=== PATIENT | female | born 1945 | race Caucasian/White ===

== ENCOUNTER → 2017-04-24 | Day surgery (SDC) | payer MEDICARE ==
[2017-04-22 15:28] VITALS: BMI 28.3
[~2017-04-24] MED LIST: GLYCOPYRROLATE 0.2 MG/ML 2 ML VIAL ONE; LACTATED RINGERS 1,000 ML IV ONE; LACTATED RINGERS 1,000 ML IV SCH; LIDOCAINE 1% 20 ML VIAL (10MG/ML) FOR IV START INTRADERMA PRN; LIDOCAINE 1% INJ 10MG/ML (20 ML MDV) ONE; PROPOFOL 10 MG/ML 20 ML VIAL IV ONE
[2017-04-24 06:57] VITALS: TEMP 97.9
--- NOTE | 2017-04-24 07:07 | P.GSHP ---
History of Present Illness H&P Date: 04/24/17 CHIEF COMPLAINT: GERD and colon screen HISTORY OF PRESENT ILLNESS: The patient is a 71-year-old female who presents with gastroesophageal reflux disease and need for colon screen. Upper and lower endoscopy were offered for further evaluation and management. PAST MEDICAL HISTORY: Please see list. PAST SURGICAL HISTORY: Please see list. MEDICATIONS: Please see list. ALLERGIES: Please see list. SOCIAL HISTORY: No illicit drug use FAMILY HISTORY: No reports of Crohn disease or ulcerative colitis. REVIEW OF ORGAN SYSTEMS: CONSTITUTIONAL: No reports of fevers or chills. GI: Denies any blood in stools or constipation. PHYSICAL EXAM: VITAL SIGNS: Stable GENERAL: Well-developed pleasant in no acute distress. HEENT: No scleral icterus. Extraocular movements grossly intact. Moist buccal mucosa. NECK: Supple without lymphadenopathy. CHEST: Unlabored respirations. Equal bilateral excursions. CARDIOVASCULAR: Regular rate and rhythm. Distal 2+ pulses. ABDOMEN: Soft, nondistended. MUSCULOSKELETAL: No clubbing, cyanosis, or edema. ASSESSMENT: 1. Gastroesophageal reflux disease 2. Colon screen. PLAN: 1. Recommend proceeding with an upper and lower endoscopy Past Medical History Past Medical History: CVA/TIA, GERD/Reflux Additional Past Medical History / Comment(s): TIA 2012- no effects, History of Any Multi-Drug Resistant Organisms: None Reported Past Surgical History: Breast Surgery Additional Past Surgical History / Comment(s): left foot bunionectomy, left breast lumpectomy Past Anesthesia/Blood Transfusion Reactions: Motion Sickness, Postoperative Nausea & Vomiting (PONV) Smoking Status: Never smoker - Past Family History Mother Family Medical History: Deep Vein Thrombosis (DVT) Medications and Allergies Home Medications Medication Instructions Recorded Confirmed Type Aspirin [Adult Low Dose Aspirin EC] 162 mg PO DAILY 04/22/17 04/22/17 History Glucosam/[place]-Msm1/C/Ran/Bosw 1 each PO DAILY 04/22/17 04/22/17 History [Glucosamine-Chondroitin Tablet] Krill Oil 500 mg PO DAILY 04/22/17 04/22/17 History Lisinopril [Zestril] 10 mg PO HS 04/22/17 04/22/17 History Multivitamins, Thera [Multivitamin 1 tab PO DAILY 04/22/17 04/22/17 History (formulary)] Omeprazole [PriLOSEC] 40 mg PO DAILY 04/22/17 04/22/17 History Ranitidine HCl [Zantac] 150 mg PO BID 04/22/17 04/22/17 History Simvastatin [Zocor] 40 mg PO HS 04/22/17 04/22/17 History Allergies Allergy/AdvReac Type Severity Reaction Status Date / Time acetaminophen [From [place]] Allergy Nausea Verified 04/22/17 15:17 amoxicillin Allergy Rash/Hives Verified 04/22/17 15:17 codeine Allergy Hallucinati Verified 04/22/17 15:17 ons hydrocodone [From [place]] Allergy Nausea Verified 04/22/17 15:17 latex Allergy Itching Verified 04/22/17 15:17 Penicillins Allergy Rash/Hives Verified 04/22/17 15:17 Surgical - Exam Vital Signs Temp Pulse Resp BP Pulse Ox 97.9 F 52 L 18 132/57 98 04/24/17 06:55 04/24/17 06:55 04/24/17 06:55 04/24/17 06:55 04/24/17 06:55
[2017-04-24 07:54] VITALS: RESP 16
--- NOTE | 2017-04-24 07:58 | P.PCN ---
Date of Procedure: 04/24/17 Description of Procedure: PREOPERATIVE DIAGNOSIS: History of colon polyps. POSTOPERATIVE DIAGNOSIS: History of colon polyps. Severe diverticulitis. Large bowel obstruction from colonic stricture of the sigmoid. OPERATION: Colonoscopy to the hepatic flexure. SURGEON: Emma Godwin MD. ANESTHESIA: MAC. INDICATIONS: The patient is a 71-year-old female who presents with change in bowel habits and history of colon polyps. Benefits and risks were described and informed consent was obtained. DESCRIPTION OF PROCEDURE: The patient had undergone Gatorade, MiraLAX and Dulcolax prep. She had been brought into the operating room and laid in the left lateral decubitus position. After adequate intravenous sedation, the rectum was examined with 2% lidocaine jelly. External hemorrhoids were encountered. The rectal tone was within normal limits. No lesions were palpated in the rectal vault. A tight sigmoid stricture was identified between 20-30 cm from the anal verge. As a result, a pediatric colonoscope was exchanged from an adult colonoscope for completion of her case. The sigmoid colon was moderately tortuous with multiple diverticuli identified. Despite maneuvers including abdominal pressure to advance the scope beyond the hepatic flexure, moderate redundancy of the colon. As a result of these findings, her colonoscopy was terminated at the hepatic flexure. No polyps were identified. Severe diverticulosis were found of the sigmoid colon. The prep was excellent with clear visualization of the mucosal folds. The scope was removed with visualization of each mucosal fold. The colon was desufflated. The patient had tolerated the procedure well. Withdrawal time was over 6 minutes. FINDINGS: Large bowel obstruction along sigmoid colon between 20-30 cm from the anal verge. [place] diverticulum of the sigmoid colon. Severe redundancy of the sigmoid colon limiting completion of the case. RECOMMENDATIONS: Stat barium enema. Recommend partial colon resection for severity of colonic stricture. Completion colonoscopy in one year, 2018.
[2017-04-24 08:35] VITALS: BP 126/57; PULSE 68
--- NOTE | 2017-04-24 10:50 | P.PCN ---
Date of Procedure: 04/24/17 Description of Procedure: PREOPERATIVE DIAGNOSIS: Gastroesophageal reflux disease. POSTOPERATIVE DIAGNOSIS: Gastritis. Gastroesophageal reflux disease. Diaphragmatic hiatal hernia without obstruction. OPERATION: Esophagogastroduodenoscopy with biopsies along antrum. SURGEON: Emma Godwin MD ANESTHESIA: MAC. INDICATIONS: The patient is a 71-year-old female who presents with a history of reflux disease. Benefits and risks of the procedure were described. Informed consent was obtained. DESCRIPTION: The patient was brought into the endoscopy suite and laid in the left lateral decubitus position. An Olympus gastroscope was passed along the posterior oropharynx down to the distal esophagus where the squamocolumnar junction was encountered at 37 cm from the incisors. The stomach was entered and no bile reflux was found. Additional findings are listed below. Biopsies with cold forceps were obtained of the antrum. The first through third portion of the duodenum was examined and unremarkable. Retroflexion of the scope confirmed Hill grade 4 lower esophageal valve. The squamocolumnar junction demostrated LA grade A erosive esophagitis. The stomach was desufflated. The patient tolerated the procedure well. FINDINGS: Squamocolumnar junction 37 cm from the incisors. Diaphragmatic hiatus at 38 cm. Hiatal hernia 1 cm. Hill grade 4 lower esophageal valve. LA grade A erosive esophagitis. No active duodenitis. Minimal superficial gastritis. RECOMMENDATIONS: Continue medical therapy. Further recommendations pending results of pathology report. Upper endoscopy as needed. Will benefit from antireflux surgical procedure Plan - Discharge Summary Discharge Rx Participant: No New Discharge Prescriptions: No Action Simvastatin [Zocor] 40 mg PO HS Lisinopril [Zestril] 10 mg PO HS Ranitidine HCl [Zantac] 150 mg PO BID Glucosam/[place]-Msm1/C/Ran/Bosw [Glucosamine-Chondroitin Tablet] 1 each PO DAILY RX: Krill Oil 500 mg PO DAILY Multivitamins, Thera [Multivitamin (formulary)] 1 tab PO DAILY Aspirin [Adult Low Dose Aspirin EC] 162 mg PO DAILY Omeprazole [PriLOSEC] 40 mg PO DAILY Discharge Medication List Aspirin [Adult Low Dose Aspirin EC] 162 mg PO DAILY 04/22/17 [History] Glucosam/[place]-Msm1/C/Ran/Bosw [Glucosamine-Chondroitin Tablet] 1 each PO DAILY 04/22/17 [History] Lisinopril [Zestril] 10 mg PO HS 04/22/17 [History] Multivitamins, Thera [Multivitamin (formulary)] 1 tab PO DAILY 04/22/17 [History ] Omeprazole [PriLOSEC] 40 mg PO DAILY 04/22/17 [History] RX: Krill Oil 500 mg PO DAILY 04/22/17 [History] Ranitidine HCl [Zantac] 150 mg PO BID 04/22/17 [History] Simvastatin [Zocor] 40 mg PO HS 04/22/17 [History] Follow up Appointment(s)/Referral(s): Emma Godwin MD [STAFF PHYSICIAN] - As Needed Patient Instructions/Handouts: *[facility] - (Anesthesia) Endoscopy Discharge Instructions, Colonoscopy (DC), Diverticulosis (DC), Upper Endoscopy (DC) Discharge Disposition: HOME SELF-CARE
--- NOTE | 2017-04-24 10:55 | P.PN ---
Progress Note - Text Progress Note Date: 04/24/17 [employer] And Claims Aide abdominal x-ray reviewed by me demonstrates moderate redundancy of the transverse colon including sigmoid colon with potential stricture. Patient may be discharged home with follow-up in the office for elective colon resection.
--- NOTE | 2017-04-24 16:26 | XR ---
EXAMINATION TYPE: XR abdomen 1V DATE OF EXAM: 04/24/2017 COMPARISON: NONE HISTORY: Pain TECHNIQUE: Single supine KUB image of the abdomen is obtained FINDINGS: Small bowel demonstrates no evidence for dilatation or air fluid levels. There is distention of colon following colonoscopy. No evidence for pneumoperitoneum although the min g bases are cut off the [id number]. No convincing evidence for pneumoperitoneum. No unusual calcifications. The lung bases are clear. The osseous structures are intact. IMPRESSION: 1. Colonic distention in a patient who is status post colonoscopy.
== END | disposition home or self-care (01) ==
LOC: ORWHC2ENDO 06:42
PROVIDERS: ATTEND Surgery Plastic and Reconstructive Surgery
DX: K21.9 Gastro-esophageal reflux disease without esophagitis (principal); K29.50 Unspecified chronic gastritis without bleeding; K44.9 Diaphragmatic hernia without obstruction or gangrene; K56.699 Other intestinal obstruction unspecified as to partial versus complete obstruction; K57.92 Diverticulitis of intestine, part unspecified, without perforation or abscess without bleeding; K64.4 Residual hemorrhoidal skin tags; Z79.82 Long term (current) use of aspirin; Z86.010 Personal history of colon polyps; Z86.73 Personal history of transient ischemic attack (TIA), and cerebral infarction without residual deficits; Z88.0 Allergy status to penicillin; Z88.5 Allergy status to narcotic agent; Z91.040 Latex allergy status; Z88.4 Allergy status to anesthetic agent
CPT/HCPCS: 88305; 88342; 74000; 45378; 43239; J2001; J2704

== ENCOUNTER → 2017-10-26 | Outpatient (CLI) | payer MEDICARE ==
[2017-10-26 11:37] LABS: HCT 45.7 % (34.0-46.0); MCH 30.7 pg (25.0-35.0); MCHC 32.8 g/dL (31.0-37.0); MCV 93.6 fL (80.0-100.0); Mean Platelet Volume 7.5; Platelet Count 224 k/uL (150-450); RBC 4.88 m/uL (3.80-5.40); RDW 12.4 % (11.5-15.5); WBC 5.5 k/uL (3.8-10.6)
[2017-10-26 11:47] LABS: Potassium 4.5 mmol/L (3.5-5.1)
== END | disposition home or self-care (01) ==
LOC: LABPAT 10:47
PROVIDERS: ATTEND Surgery Plastic and Reconstructive Surgery
DX: Z01.812 Encounter for preprocedural laboratory examination (principal)
CPT/HCPCS: 36415; 80051; 85027

== ENCOUNTER 2017-10-29 10:29 | Inpatient (IN) | payer MEDICARE ==
[2017-10-21 15:40] VITALS: BMI 29.0
--- NOTE | 2017-10-29 08:35 | P.GSHP ---
History of Present Illness H&P Date: 10/29/17 CHIEF COMPLAINT: History of severe sigmoid diverticulosis. HISTORY OF PRESENT ILLNESS: Kristie Yoon is a 72-year-old female who had an attempted colonoscopy in April. She reports having blood in her stools, including lower pelvic pain particularly along the right. Her colonoscopy revealed a sigmoid stricture between 20-30 cm from the anal verge. She reports that her bowel movements have become worse in terms of constipation. Her was at bedside. She has completed a cardiac stress test with Dr. Strickland, in June, which came back completely normal. Now she presents for sigmoid colon resection. PAST MEDICAL HISTORY: Please see list. PAST SURGICAL HISTORY: Please see list. MEDICATIONS: Please see list. ALLERGIES: Please see list. SOCIAL HISTORY: No illicit drug use FAMILY HISTORY: No reports of Crohn disease or ulcerative colitis. REVIEW OF ORGAN SYSTEMS: Additionally reports: Cardiovascular: Completed a cardiac stress test on June 30, 2017, which was normal for any ischemic events. Musculoskeletal: History of severe osteoarthritis of the right knee. Hematologic: Reports mother of blood clots and also reports poor and collapsed veins of the right leg. CONSTITUTIONAL: No fevers or chills. HEENT: Denies any trouble with vision, hearing or nosebleeds. No difficulty swallowing. LYMPHATIC: The patient denies any lumps and bumps around the neck. ENDOCRINE: Denies any thyroid disorders. Denies any blood sugar glucose intolerance. RESPIRATORY: Denies pneumonia. Denies any troubles with breathing or dyspnea on exertion. GASTROINTESTINAL: Denies fatty food intolerance. Denies change in bowel habits and gas bloat. GENITOURINARY: Denies any blood in urine or increased urinary frequency. NEUROLOGIC: Denies any numbness or tingling along the distal extremities. No seizure disorders or headaches. PSYCHIATRIC: Denies any depression or suicidal ideation. BREASTS: Denies any breast lumps, pain or nipple discharge. SKIN: No current skin cancer. No rash. PHYSICAL EXAM: VITAL SIGNS: Stable Patient is a 72-year-old female. GENERAL: Well developed and in no acute distress. Pleasant. HEENT: No sclera icterus. Extraocular movements grossly intact. Moist buccal mucosa. Head is atraumatic, normocephalic. Hears conversational speech. No nasal drainage. NECK: Supple without lymphadenopathy. No JV distention. CHEST: Non-labored respirations and equal bilateral excursions. CARDIOVASCULAR: Regular rate and rhythm. Palpable 2+ radial pulses. ABDOMEN: Soft. Non-tender. Nondistended. MUSCULOSKELETAL: No clubbing, cyanosis or edema. NEUROLOGIC: No focal or lateralizing signs. PSYCH: Appropriate affect. Alert and oriented to person, place and time. SKIN: Well perfused. Good skin turgor. STUDIES: X-ray of the abdomen had demonstrated severe gastric distention. Stress test was reviewed, along side with the patient, and demonstrated no myocardial ischemia. ASSESSMENT: 1. Severe sigmoid diverticulosis. 2. Large bowel obstruction. 3. Family history of DVT. 4. History of venous disease. PLAN: 1. I have gone over surgical options, including robotic versus open sigmoid colectomy. As she has minimal scars on her abdomen, robotic colectomy was described. 2. Time frame for operation is anywhere between 3-6 hours was reviewed. 3. Inpatient hospitalization for 2 nights was described. 4. With her personal and family history of DVTs, referral to cardroom drawing runner was also reviewed as well. Additionally, inpatient consultation for post op DVT prophylaxis will be investigated. 5. Weight lifting restriction of 4 pounds for 4 weeks post procedure was reviewed. 6. Enhanced colon recovery program was also reviewed. 7. Bowel prep information was also described. Poor bowel prep management was also described to the patient where she will start her bowel prep early on Thursday morning and notify the office by mid-afternoon should she have any problems with her prep, which will warrant immediate hospitalization the night before the operation, which she demonstrated understanding. 8. All questions and answers were reviewed with the patient and family. 9. Benefits and risks of surgical intervention reviewed in detail. Robotic- assisted approach was also described. 10. She has completed an enhanced colon recovery program. 11. DVT prophylaxis. 12. Antibiotic prophylaxis. Past Medical History Past Medical History: CVA/TIA, GERD/Reflux, Hyperlipidemia, Hypertension Additional Past Medical History / Comment(s): TIA 2012- no effects, diverticulitis, hx polyps History of Any Multi-Drug Resistant Organisms: None Reported Past Surgical History: Breast Surgery, Orthopedic Surgery Additional Past Surgical History / Comment(s): left foot bunionectomy, left breast lumpectomy Past Anesthesia/Blood Transfusion Reactions: Motion Sickness, Postoperative Nausea & Vomiting (PONV) Smoking Status: Never smoker - Past Family History Mother Family Medical History: Deep Vein Thrombosis (DVT) Medications and Allergies Home Medications Medication Instructions Recorded Confirmed Type Aspirin [Adult Low Dose Aspirin EC] 162 mg PO DAILY 04/22/17 10/21/17 History Glucosam/[place]-Msm1/C/Ran/Bosw 1 each PO DAILY 04/22/17 10/21/17 History [Glucosamine-Chondroitin Tablet] Krill Oil 500 mg PO DAILY 04/22/17 10/21/17 History Lisinopril [Zestril] 10 mg PO HS 04/22/17 10/21/17 History Multivitamins, Thera [Multivitamin 1 tab PO DAILY 04/22/17 10/21/17 History (formulary)] Omeprazole [PriLOSEC] 40 mg PO DAILY 04/22/17 10/21/17 History Ranitidine HCl [Zantac] 150 mg PO BID 04/22/17 10/21/17 History Simvastatin [Zocor] 40 mg PO HS 04/22/17 10/21/17 History Allergies Allergy/AdvReac Type Severity Reaction Status Date / Time amoxicillin Allergy Rash/Hives Verified 10/21/17 15:34 codeine Allergy Hallucinati Verified 10/21/17 15:34 ons hydrocodone [From [place]] Allergy Nausea Verified 10/21/17 15:34 latex Allergy Itching Verified 10/21/17 15:34 Penicillins Allergy Rash/Hives Verified 10/21/17 15:34
[~2017-10-29 10:29] MED LIST changes: +ACETAMINOPHEN TAB 500 MG TAB PO ONE; +ALVIMOPAN 12 MG CAPSULE PO ONE; +Antibiotics per Pharmacy 1 EACH MISC MISCELLANE PRN; +DEXAMETHASONE SOD PHOSPHATE 10 MG/ML 1 ML VIAL IV ONE; -GLYCOPYRROLATE 0.2 MG/ML 2 ML VIAL ONE; +HEPARIN SODIUM,PORCINE 5,000 UNIT/ML 1 ML VIAL SQ ONE; +HYDROmorphone 0.5 MG/0.5 ML SYRINGE IVP PRN; -LACTATED RINGERS 1,000 ML IV ONE; -LACTATED RINGERS 1,000 ML IV SCH; -LIDOCAINE 1% 20 ML VIAL (10MG/ML) FOR IV START INTRADERMA PRN; -LIDOCAINE 1% INJ 10MG/ML (20 ML MDV) ONE; +ONDANSETRON 4 MG/2 ML VIAL IVP ONE; -PROPOFOL 10 MG/ML 20 ML VIAL IV ONE; +ceFAZolin IN SWFI 2 GM/20 ML SYRINGE IVP ONE; +metroNIDAZOLE-NS PMX 500 MG in SALINE 1 100ML.BAG IVPB STA
--- NOTE | 2017-10-29 11:02 | XR ---
EXAMINATION TYPE: XR chest 2V DATE OF EXAM: 10/29/2017 COMPARISON: NONE HISTORY: Preoperative evaluation. TECHNIQUE: Frontal and lateral views of the chest are obtained. FINDINGS: There is no focal air space opacity, pleural effusion, or pneumothorax seen. The cardiac silhouette size is within normal limits. The osseous structures are intact. Mild multilevel degener ative changes of the thoracic spine are seen. IMPRESSION: No acute cardiopulmonary process.
[2017-10-29] MEDS: LACTATED RINGERS 1,000 ML IV SCH (11:42)
[2017-10-29] MEDS ORDERED: LIDOCAINE 1% 20 ML VIAL (10MG/ML) FOR IV START INTRADERMA ONE (11:42)
[2017-10-29] MEDS ORDERED: MIDAZOLAM 2 MG/2 ML VIAL IV ONE ×2 (12:39→12:49)
[2017-10-29] MEDS ORDERED: fentaNYL (PF) 50 MCG/ML 2 ML AMP IV ONE (12:50)
[2017-10-29] MEDS ORDERED: NALOXONE 0.4 MG/ML 1 ML VIAL IV PRN (13:21)
[2017-10-29] MEDS ORDERED: LIDOCAINE 1% INJ 10MG/ML (20 ML MDV) ONE (13:52)
[2017-10-29] MEDS ORDERED: ROCURONIUM BROMIDE 10 MG/ML 10 ML VIAL IV ONE (13:52)
[2017-10-29] MEDS ORDERED: MIDAZOLAM 2 MG/2 ML VIAL ONE (13:52)
[2017-10-29] MEDS ORDERED: GLYCOPYRROLATE 0.2 MG/ML 2 ML VIAL ONE (13:52)
[2017-10-29] MEDS ORDERED: NEOSTIGMINE 1 MG/ML 10 ML VIAL ONE (13:52)
[2017-10-29] MEDS ORDERED: PROPOFOL 10 MG/ML 20 ML VIAL IV ONE (13:52)
[2017-10-29] MEDS ORDERED: PHENYLEPHRINE-0.9% NACL SYG 1 MG/10 ML SYRINGE ONE (13:52)
[2017-10-29] MEDS ORDERED: fentaNYL (PF) 50 MCG/ML 2 ML AMP ONE (13:52)
[2017-10-29] MEDS ORDERED: ePHEDrine SULFATE/0.9% NACL/PF 50 MG/5 ML SYRINGE IV ONE (13:52)
[2017-10-29] MEDS ORDERED: SUCCINYLCHOLINE CHLORIDE 100 MG/5 ML SYR IV ONE (13:52)
[2017-10-29] MEDS ORDERED: BUPIVACAINE (PF) 0.5% 30 ML VIAL SQ ONE (14:23)
[2017-10-29] MEDS ORDERED: LACTATED RINGERS 1,000 ML IV ONE ×2 (16:00)
--- NOTE | 2017-10-29 18:15 | P.PCN ---
Date of Procedure: 10/29/17 Preoperative Diagnosis: Sigmoid diverticulitis with obstruction Postoperative Diagnosis: Same, sigmoid volvulus Procedure(s) Performed: Robotic -assisted low anterior resection Anesthesia: GETA, local, epidural Surgeon: Emma Godwin Estimated Blood Loss (ml): 20 Pathology: other (Sigmoid diverticulitis) Condition: stable Disposition: floor Operative Findings: 1. Sigmoid volvulus involving area of sigmoid diverticulitis 2. Anastomosis with EEA stapler 29 mm 3. No tension or torsion on the anastomosis 4. Colotomy superior to anastomosis made with transverse closure using green staple load 5. Colotomy oversewn using 3-0 silk 6. Doughnuts thick and both sides and viable
[2017-10-29] MEDS ORDERED: BENZOCAINE/MENTHOL LOZENG 1 EACH LOZENGE MUCOUS MEM PRN (18:16)
[2017-10-29] MEDS: ROPIVACAINE 250 MG, fentaNYL (PF) 1,250 MCG in SODIUM CHLORIDE 0.9% 175 ML EPIDURAL PRN ×3 (18:23→18:45)
[2017-10-29] MEDS ORDERED: SCOPOLAMINE 1.5MG/72HR PATCH TRANSDERM SCH (18:30)
--- NOTE | 2017-10-29 20:22 | P.PN ---
Progress Note - Text Progress Note Date: 10/29/17 She is sleeping well. Potential discharge in 24-48 hours pending surgical stability.
[2017-10-29] MEDS: D5-0.45% NACL WITH KCL 20MEQ/L 1,000 ML IV SCH (22:02)
[2017-10-29] MEDS: FAMOTIDINE 20 MG/2 ML VIAL IV SCH (22:08)
[2017-10-29] MEDS: HEPARIN SODIUM,PORCINE 5,000 UNIT/ML 1 ML VIAL SQ SCH (22:08)
[2017-10-29] MEDS: LISINOPRIL 10 MG TAB PO SCH (22:11)
[2017-10-30] MEDS: METOCLOPRAMIDE 5 MG/ML 2 ML VIAL IVP SCH ×4 (00:53→17:14)
[2017-10-30 07:41] LABS: Basophils % (A) 0 %; Eosinophils % (A) 0 %; HGB 12.9 gm/dL (11.4-16.0); Lymphocytes # (A) 1.4 k/uL (1.0-4.8); Lymphocytes % (A) 11 %; MCH 31.8 pg (25.0-35.0); MCHC 33.1 g/dL (31.0-37.0); MCV 95.8 fL (80.0-100.0); Mean Platelet Volume 7.6; Monocytes # (A) 0.9 k/uL (0-1.0); Monocytes % (A) 7 %; Neutrophils # (A) 9.9 k/uL (1.3-7.7); Neutrophils % (A) 81 %; Platelet Count 213 k/uL (150-450); RBC 4.07 m/uL (3.80-5.40); RDW 12.5 % (11.5-15.5); WBC 12.3 k/uL (3.8-10.6)
[2017-10-30 08:04] LABS: Anion Gap 8 mmol/L; Blood Urea Nitrogen 13 mg/dL (7-17); Calcium 8.4 mg/dL (8.4-10.2); Carbon Dioxide 25 mmol/L (22-30); Chloride 104 mmol/L (98-107); Glucose 116 mg/dL (74-99); Potassium 4.2 mmol/L (3.5-5.1); Sodium 137 mmol/L (137-145)
[2017-10-30] MEDS: ALVIMOPAN 12 MG CAPSULE PO SCH ×2 (08:56→21:49)
[2017-10-30] MEDS: HEPARIN SODIUM,PORCINE 5,000 UNIT/ML 1 ML VIAL SQ SCH ×2 (08:57→21:49)
[2017-10-30] MEDS: FAMOTIDINE 20 MG/2 ML VIAL IV SCH ×2 (08:57→21:48)
[2017-10-30 09:02] LABS: Magnesium 2.1 mg/dL (1.6-2.3); Phosphorus 3.5 mg/dL (2.5-4.5)
[2017-10-30] MEDS: LACTATED RINGERS 1,000 ML IV SCH ×2 (09:52→11:29)
[2017-10-30] MEDS: D5-0.45% NACL WITH KCL 20MEQ/L 1,000 ML IV SCH ×3 (09:53→20:48)
[2017-10-30] MEDS ORDERED: ACETAMINOPHEN IV (For NPO) 1,000 MG in EMPTY BAG 1 BAG IVPB ONE (10:01)
[2017-10-30] MEDS: ONDANSETRON 4 MG/2 ML VIAL IVP PRN ×2 (10:38→18:18)
--- NOTE | 2017-10-30 10:53 | P.PN ---
<Latanya Pastor - Last Filed: 10/30/17 10:46> Subjective Progress Note Date: 10/30/17 72-year-old female seen at the bedside. Patient states feeling dizzy lightheaded nausea sensation feel like it's from the pain medication from the epidural" did note low urine output with systolic blood pressure in the 90s heart rate in the 70s 1 L fluid bolus being given. White count 12.3 electrolytes within normal limits magnesium 2.1 surgical dressing site dry states not passing gas indwelling Kevin catheter dark manolo urine surgical tenderness appropriate October 29 robotic-assisted low anterior resection for sigmoid diverticulitis with obstruction sigmoid volvulus Objective - Vital Signs Vital signs: Vital Signs Temp 98.6 F 10/30/17 07:54 Pulse 72 10/30/17 07:54 Resp 16 10/30/17 07:54 BP 94/57 10/30/17 07:54 Pulse Ox 96 10/30/17 07:54 Intake & Output 10/29/17 10/30/17 10/30/17 18:59 06:59 18:59 Intake Total 2627.1 Output Total 420 535 Balance 2207.1 -535 Intake: IV 2627.1 Output: Drainage 60 Left Abdomen 60 Urine 400 475 Estimated Blood Loss 20 Other: Voiding Method Indwelling Catheter # Voids 1 - Exam Physical exam 72-year-old female awake and alert resting in bed appearing in no acute distress Lungs adequate air movement bilaterally no shortness of breath noted sats on room air 96% Heart S1-S2 audible irregular heart rate in the 70s denying chest pain Abdomen SOFIA drain in place serous drainage noted few hypoactive bowel sounds indwelling Kevin catheter in place nausea sensation no active emesis surgical tenderness appropriate nondistended Extremities Venodyne's on to the bilateral lower extremities no edema - Labs CBC & Chem 7: 10/30/17 06:46 10/30/17 06:46 Labs: Abnormal Lab Results - Last 24 Hours (Table) 10/30/17 10/30/17 Range/Units 06:46 06:46 WBC 12.3 H (3.8-10.6) k/uL Neutrophils # 9.9 H (1.3-7.7) k/uL Glucose 116 H (74-99) mg/dL Assessment and Plan Assessment: Impression Sigmoid diverticulitis with obstruction with sigmoid volvulus Robotic-assisted low anterior resection for sigmoid diverticulitis with obstruction Esophageal reflux disease Hyperlipidemia Leukocytosis likely reactive Plan IV fluid bolus now monitor response IV fluid at 125 an hour Surgical postop course continue Pain control epidural per anesthesia DVT and GI prophylaxis Increase activity as tolerated further surgical recommendations pending The above impression and plan of care have been discussed and directed by signing physician. Latanya Pastor nurse practitioner acting as scribe for signing physician. <Emma Godwin N - Last Filed: 10/30/17 18:42> Objective - Vital Signs Vital signs: Vital Signs Temp 98.4 F 10/30/17 15:12 Pulse 76 10/30/17 15:12 Resp 16 10/30/17 15:12 BP 101/59 10/30/17 15:12 Pulse Ox 95 10/30/17 15:16 Intake & Output 10/29/17 10/30/17 10/30/17 18:59 06:59 18:59 Intake Total 2627.1 Output Total 420 535 310 Balance 2207.1 -535 -310 Intake: IV 2627.1 Output: Drainage 60 35 Left Abdomen 60 35 Urine 400 475 275 Estimated Blood Loss 20 Other: Voiding Method Indwelling Catheter Indwelling Catheter # Voids 1 - Labs CBC & Chem 7: 10/30/17 06:46 10/30/17 06:46 Labs: Abnormal Lab Results - Last 24 Hours (Table) 10/30/17 10/30/17 Range/Units 06:46 06:46 WBC 12.3 H (3.8-10.6) k/uL Neutrophils # 9.9 H (1.3-7.7) k/uL Glucose 116 H (74-99) mg/dL
--- NOTE | 2017-10-30 13:00 | P.PN ---
Progress Note - Text Date: 10/30/2017 Time: 07:21 The patient is status post, robotic-assisted laparoscopic sigmoid colectomy, postoperative day number 1 The patient has no complaints of vomiting or headache. The patient does report some mild nausea this morning. The patient does not complain of any lower extremity numbness or weakness. The epidural is running at[3] mL per hour. The nausea will be monitored and the epidural will be maintained and adjusted as needed.
[2017-10-30] MEDS: metroNIDAZOLE-NS PMX 500 MG in SALINE 1 100ML.BAG IVPB SCH (21:48)
[2017-10-30] MEDS: LISINOPRIL 10 MG TAB PO SCH (21:48)
[2017-10-30] MEDS: ceFAZolin IN SWFI 2 GM/20 ML SYRINGE IVP SCH (21:48)
[2017-10-30] MEDS ORDERED: DEXAMETHASONE SOD PHOSPHATE 10 MG/ML 1 ML VIAL IV STA (21:57)
[2017-10-30] MEDS: ROPIVACAINE 250 MG, fentaNYL (PF) 1,250 MCG in SODIUM CHLORIDE 0.9% 175 ML EPIDURAL PRN (22:45)
[2017-10-31] MEDS: METOCLOPRAMIDE 5 MG/ML 2 ML VIAL IVP SCH ×3 (01:21→10:49)
[2017-10-31] MEDS: metroNIDAZOLE-NS PMX 500 MG in SALINE 1 100ML.BAG IVPB SCH ×2 (01:21→09:50)
[2017-10-31] MEDS: D5-0.45% NACL WITH KCL 20MEQ/L 1,000 ML IV SCH (02:44)
[2017-10-31] MEDS: ceFAZolin IN SWFI 2 GM/20 ML SYRINGE IVP SCH (04:35)
[2017-10-31 07:38] LABS: Basophils % (A) 0 %; Eosinophils % (A) 0 %; HCT 37.8 % (34.0-46.0); HGB 12.1 gm/dL (11.4-16.0); Lymphocytes # (A) 0.7 k/uL (1.0-4.8); Lymphocytes % (A) 7 %; MCHC 32.1 g/dL (31.0-37.0); MCV 96.7 fL (80.0-100.0); Mean Platelet Volume 7.8; Monocytes # (A) 0.3 k/uL (0-1.0); Monocytes % (A) 3 %; Neutrophils # (A) 8.9 k/uL (1.3-7.7); Neutrophils % (A) 90 %; Platelet Count 184 k/uL (150-450); RBC 3.91 m/uL (3.80-5.40); RDW 12.9 % (11.5-15.5); WBC 9.9 k/uL (3.8-10.6)
[2017-10-31 07:41] VITALS: RESP 16
[2017-10-31 07:58] LABS: Anion Gap 8 mmol/L; Blood Urea Nitrogen 8 mg/dL (7-17); Calcium 8.6 mg/dL (8.4-10.2); Carbon Dioxide 24 mmol/L (22-30); Chloride 108 mmol/L (98-107); Glucose 144 mg/dL (74-99); Magnesium 2.1 mg/dL (1.6-2.3); Potassium 4.7 mmol/L (3.5-5.1); Sodium 140 mmol/L (137-145)
[2017-10-31] MEDS: ONDANSETRON 4 MG/2 ML VIAL IVP PRN (08:22)
[2017-10-31] MEDS: ALVIMOPAN 12 MG CAPSULE PO SCH (09:50)
[2017-10-31] MEDS: FAMOTIDINE 20 MG/2 ML VIAL IV SCH (09:51)
[2017-10-31] MEDS: HEPARIN SODIUM,PORCINE 5,000 UNIT/ML 1 ML VIAL SQ SCH (09:51)
--- NOTE | 2017-10-31 11:52 | P.DS ---
Providers Date of admission: 10/29/17 10:29 Expected date of discharge: 10/31/17 Attending physician: Emma Godwin Primary care physician: Omid Vasquez - Discharge Diagnosis(es) (1) Sigmoid diverticulitis Current Visit: Yes Status: Acute (2) Sigmoid volvulus Current Visit: Yes Status: Acute (3) Hypertensive heart disease Current Visit: Yes Status: Acute (4) Hyperlipidemia Current Visit: Yes Status: Acute (5) Osteoarthritis Current Visit: Yes Status: Acute (6) Gastroesophageal reflux Current Visit: Yes Status: Acute (7) Hiatal hernia Current Visit: Yes Status: Acute Hospital Course: Patient underwent elective colon resection with a low anterior resection with robotic technique. She had history of symptomatically diverticulitis, change in bowel habits and intraoperative finding of sigmoid volvulus. Postprocedure her pain was controlled with epidural. Prior to discharge her epidural was discontinued. Kevin catheter was removed. She had been tolerating diet. SOFIA drain was maintained upon discharge. Patient will follow-up in the office in 7 days. Discharge instructions including diet and medical reconciliation was performed. Opiates start talking form was also obtained. Procedures: Robotic low anterior resection Patient Condition at Discharge: Stable Plan - Discharge Summary Discharge Rx Participant: Yes New Discharge Prescriptions: New HYDROcodone/APAP 5-325MG [[place] 5-325] 1 tab PO Q4HR PRN 3 Days #18 tab PRN Reason: Pain Ondansetron Odt [Zofran ODT] 4 mg PO Q8HR PRN #20 tab PRN Reason: Nausea Continue Simvastatin [Zocor] 40 mg PO HS Lisinopril [Zestril] 10 mg PO HS Ranitidine HCl [Zantac] 150 mg PO BID Aspirin [Adult Low Dose Aspirin EC] 162 mg PO DAILY Omeprazole [PriLOSEC] 40 mg PO DAILY Discontinued Glucosam/[place]-Msm1/C/Ran/Bosw [Glucosamine-Chondroitin Tablet] 1 tab PO DAILY Krill Oil 500 mg PO DAILY Multivitamins, Thera [Multivitamin (formulary)] 1 tab PO DAILY Discharge Medication List Aspirin [Adult Low Dose Aspirin EC] 162 mg PO DAILY 04/22/17 [History] Lisinopril [Zestril] 10 mg PO HS 04/22/17 [History] Omeprazole [PriLOSEC] 40 mg PO DAILY 04/22/17 [History] Ranitidine HCl [Zantac] 150 mg PO BID 04/22/17 [History] Simvastatin [Zocor] 40 mg PO HS 04/22/17 [History] HYDROcodone/APAP 5-325MG [[place] 5-325] 1 tab PO Q4HR PRN 3 Days #18 tab [Rx] Ondansetron Odt [Zofran ODT] 4 mg PO Q8HR PRN #20 tab 10/31/17 [Rx] Follow up Appointment(s)/Referral(s): Emma Godwin MD [STAFF PHYSICIAN] - 11/03/17 1:00 pm (MARLETTE) Patient Instructions/Handouts: Laparoscopic Bowel Resection (DC), Colectomy Diet (DC), [place]-Se[place] Drain Care (DC) Activity/Diet/Wound Care/Special Instructions: No bath tub soaks. No showering with drain. May sponge bath. Dressings to be removed by your surgeon. High protein liquid diet now until seen in the office. Discharge Disposition: HOME SELF-CARE
--- NOTE | 2017-10-31 11:55 | P.PN ---
Subjective Progress Note Date: 10/31/17 Patient is status post robotic-assisted low anterior resection for sigmoid diverticulitis and sigmoid volvulus. Her pain has been controlled. Yesterday she had nausea and vomiting which is now completely resolved. She is tolerating diet. She is ambulating without dizziness. SOFIA drain still sanguinous. She denies any chest pain. She denies any abdominal distention. Objective - Vital Signs Vital signs: Vital Signs Temp 98.4 F 10/31/17 07:39 Pulse 62 10/31/17 07:39 Resp 16 10/31/17 07:39 BP 120/68 10/31/17 07:39 Pulse Ox 92 L 10/31/17 07:39 Intake & Output 10/30/17 10/31/17 10/31/17 18:59 06:59 18:59 Output Total 310 1880 Balance -310 -1880 Output: Drainage 35 30 Left Abdomen 35 30 Urine 275 1850 Other: Voiding Method Indwelling Catheter Indwelling Catheter Indwelling Catheter # Voids 1 - Exam GENERAL: Well developed and in no acute distress. Pleasant. HEENT: No sclera icterus. Extraocular movements grossly intact. Moist buccal mucosa. Head is atraumatic, normocephalic. Hears conversational speech. No nasal drainage. NECK: Supple without lymphadenopathy. No JV distention. CHEST: Non-labored respirations and equal bilateral excursions. CARDIOVASCULAR: Regular rate and rhythm. Palpable 2+ radial pulses. ABDOMEN: Soft, nondistended. No peritonitis. SOFIA sanguinous. Dressings clean dry and intact. MUSCULOSKELETAL: No clubbing, cyanosis or edema. NEUROLOGIC: No focal or lateralizing signs. PSYCH: Appropriate affect. Alert and oriented to person, place and time. SKIN: Good skin turgor. Well perfused. - Labs CBC & Chem 7: 10/31/17 06:46 10/31/17 06:46 Labs: Abnormal Lab Results - Last 24 Hours (Table) 10/31/17 10/31/17 Range/Units 06:46 06:46 Neutrophils # 8.9 H (1.3-7.7) k/uL Lymphocytes # 0.7 L (1.0-4.8) k/uL Chloride 108 H (98-107) mmol/L Glucose 144 H (74-99) mg/dL Assessment and Plan (1) Sigmoid diverticulitis Current Visit: Yes Status: Acute Code(s): K57.32 - DVTRCLI OF LG INT W/O PERFORATION OR ABSCESS W/O BLEEDING SNOMED Code(s): 051704942 (2) Sigmoid volvulus Current Visit: Yes Status: Acute Code(s): K56.2 - VOLVULUS SNOMED Code(s) : 048559431 (3) Hypertensive heart disease Current Visit: Yes Status: Acute Code(s): I11.9 - HYPERTENSIVE HEART DISEASE WITHOUT HEART FAILURE SNOMED Code(s): 24488849 (4) Hyperlipidemia Current Visit: Yes Status: Acute Code(s): E78.5 - HYPERLIPIDEMIA, UNSPECIFIED SNOMED Code(s): 22913858 (5) Osteoarthritis Current Visit: Yes Status: Acute Code(s): M19.90 - UNSPECIFIED OSTEOARTHRITIS, UNSPECIFIED SITE SNOMED Code(s): 505362093 (6) Gastroesophageal reflux Current Visit: Yes Status: Acute Code(s): K21.9 - GASTRO-ESOPHAGEAL REFLUX DISEASE WITHOUT ESOPHAGITIS SNOMED Code(s): 104620373 (7) Hiatal hernia Current Visit: Yes Status: Acute Code(s): K44.9 - DIAPHRAGMATIC HERNIA WITHOUT OBSTRUCTION OR GANGRENE SNOMED Code(s): 81024808 Plan: 1. Remove epidural including Kevin catheter. 2. Discharge instructions were reviewed including pain management. She will takes Zofran with her pain meds for optimize pain control. 3. Continue with SOFIA drain. 4. May discharge home with follow-up in the office in 5 days.
[2017-10-31 14:59] VITALS: BP 132/75; PULSE 75; TEMP 99.1
--- NOTE | 2017-11-01 11:08 | P.PN ---
Progress Note - Text Progress Note Date: 11/01/17 Patient called at home. She is tolerating her pain meds. Pain is controlled. No fevers or chills. No reports of nausea or vomiting. Post-discharge diet reiterated. All questions addressed. Follow-up in the office in 3 days.
--- NOTE | 2017-11-01 20:33 | P.OP ---
Date of Procedure: 10/29/17 Description of Procedure: SURGEON: CAL CLEMENTS MD PREOPERATIVE DIAGNOSES: 1. Sigmoid diverticulitis with large bowel obstruction 2. Left lower quadrant abdominal pain 3. Hyperlipidemia 4. Gastroesophageal reflux disease 5. Symptomatic hiatal hernia 6. Hypertensive heart disease 7. Previous history of CVA POSTOPERATIVE DIAGNOSES: 1. Sigmoid diverticulitis with large bowel obstruction 2. Left lower quadrant abdominal pain 3. Hyperlipidemia 4. Gastroesophageal reflux disease 5. Symptomatic hiatal hernia 6. Hypertensive heart disease 7. Previous history of CVA 8. Sigmoid volvulus OPERATION: 1. Robotic-assisted daVinci Xi sigmoid colectomy with low anterior resection using 29 mm ILS 2. Placement of round #19 drain pelvis Anesthesia: GETA, local, epidural Estimated Blood Loss (ml): 20 Pathology: other (Sigmoid diverticulitis) Condition: stable Disposition: floor COMPLICATIONS: None. Operative Findings: 1. Sigmoid volvulus involving area of sigmoid diverticulitis 2. Anastomosis with EEA stapler 29 mm 3. No tension or torsion along the anastomosis 4. Colotomy superior to anastomosis made with transverse closure using green staple load 5. Colotomy oversewn using 3-0 silk 6. Doughnuts thick and both sides and viable INDICATIONS: The patient is a 72-year-old female who presents with symptomatic sigmoid diverticulitis. She had a colonoscopy confirming a large bowel obstruction. Additionally she reports left lower quadrant abdominal pain. Benefits and risks of surgical intervention was described in detail including infection, injury to the ureter, colostomy creation, possibility for additional surgery was discussed at length. Informed consent was obtained. All questions of the patient and family were answered. DESCRIPTION: Earlier the patient had undergone a bowel prep using the enhanced colon recovery program. The patient was transferred to the operating room and placed supine. After general induction, the abdomen was prepped and draped in standard sterile fashion. Ioban was placed along the abdomen to minimize any contamination of skin floor. A Kevin catheter was placed. After a timeout protocol was performed, attention was then brought to the left upper quadrant whereby a 0 degree 5 mm laparoscopic trocar entry was performed. The abdominal cavity was entered and insufflated to 15 mmHg pressure, which she tolerated well. Diagnostic laparoscopy confirmed moderately redundant sigmoid colon with an active sigmoid volvulus. The liver surface was unremarkable. The small bowel was unremarkable. Next a robotic 12-mm trocar was placed along the right lateral abdominal wall 20 cm superior from the pelvis. Two 8 mm ports were placed along the upper abdomen. Ports were placed 8 to 10 cm apart from each other including 15-20 cm away from the target anatomy of the left pelvis. The 5-mm port was exchanged for an 8 mm robotic port at the left upper quadrant. The robot was docked along the left lateral abdomen. The patient was positioned in steep Trendelenburg position. Using atraumatic graspers and vessel sealer, the robotic system was docked and primed as described. Instruments were interchanged by the greenhouse assistant including scissors, needle combine driver , robotic stapler and vessel sealer. The robot stapler was prepared along the right lateral abdominal wall. The stapler 12-mm port was arranged along the right lateral abdominal wall. Next, attention was brought to identify the sigmoid colon. A stay suture using 3- 0 silk was placed along the anterior serosa of the redundant sigmoid colon. The sigmoid mesentery was mobilized using a vessel sealer whereby the descending colon was marked and tagged. Using multiple fires of the robot stapler 45 mm green load, the proximal redundant sigmoid colon was divided. The mesentery of the sigmoid colon was mobilized towards the pelvic brim and sacral promontory using a vessel sealer. Next, the sigmoid colon was divided using the robotic stapler 45 mm green load. The rest of the sigmoid colon mesentery was mobilized using vessel sealer. Additionally, the sigmoid colon was mobilized onto the colon to minimize injury to the ureters. Circumferential dissection was performed to the sacral promontory for resection. Next, multiple fires of 45-mm green staple loads were used to resect at the proximal rectum. Via the proximal segment of the descending colon , a longitudinal colotomy was performed. I re-scrubbed into the case. The robotic arms were undocked. A 29-mm anvil was positioned after placing a suture along the anvil arcade attendant. The shaft of the anvil was exited via the staple line and the anvil arcade attendant was removed. I went to the foot of the bed to place the ILS stapler via the rectum. The anvil and stapler were mated for 1 minute. The doughnuts were intact on both sides and thick. I went back to the console. The colotomy was oversewn using 3-0 silk. The colotomy along the anterior surface of the descending colon was closed using 45 mm green stapler. All needles were removed from the abdominal cavity. The robot was undocked. I re-scrubbed into the case. Via the left upper quadrant port, the sigmoid colon was removed using a 15-mm Endo Catch bag. All sponges were removed from the abdominal cavity. The left upper quadrant incision was widened to 3-cm. No contamination had occurred throughout the case. The fascial defect was oversewn using 0 Vicryl and a Keaton Bland. A round #19 drain was placed anterior to the anastomosis along the pelvis and exited via the right lateral abdominal wall. A 2-0 nylon stitch was placed. Next all pneumoperitoneum was evacuated from the abdominal cavity. The 8-mm trocar sites were reapproximated using 4-0 Monocryl in an interrupted subcuticular fashion. Local anesthetic was infiltrated to all wounds for postop analgesia. All incisions were also cleansed with diluted hydrogen peroxide. An Optifoam surgical dressing was placed over the epigastrium of the colon extraction site and drain site. A suction bulb was placed along the tubing. Liquid glue was applied to the rest of the skin incisions. The patient had tolerated the procedure well. The patient was extubated successfully. Intraoperative photos were reviewed with the patient's family who were overall pleased with the level of care. The patient was transferred to the postanesthesia care unit in stable condition.
== END 2017-10-31 15:48 | disposition home or self-care (01) | DRG 329 ==
LOC: 2ORMAIN 10:29 → 3SUR 18:36
PROVIDERS: ADMIT Surgery Plastic and Reconstructive Surgery; ATTEND Surgery Plastic and Reconstructive Surgery
PROC: 8E0W4CZ Robotic Assisted Procedure of Trunk Region, Percutaneous Endoscopic Approach (ICD-10-PCS; 2017-10-29)
PROC: 0DBN4ZZ Excision of Sigmoid Colon, Percutaneous Endoscopic Approach (ICD-10-PCS; principal; 2017-10-29 12:30)
DX: K57.32 Diverticulitis of large intestine without perforation or abscess without bleeding (principal); K56.2 Volvulus; I11.9 Hypertensive heart disease without heart failure; M19.90 Unspecified osteoarthritis, unspecified site; K21.9 Gastro-esophageal reflux disease without esophagitis; K44.9 Diaphragmatic hernia without obstruction or gangrene; E78.5 Hyperlipidemia, unspecified; Z86.73 Personal history of transient ischemic attack (TIA), and cerebral infarction without residual deficits; Z79.82 Long term (current) use of aspirin; Z88.5 Allergy status to narcotic agent; Z88.0 Allergy status to penicillin; Z91.040 Latex allergy status; Z79.899 Other long term (current) drug therapy; Z82.49 Family history of ischemic heart disease and other diseases of the circulatory system
CPT/HCPCS: 36415; 71046; 80048; 80051; 83735; 84100; 85025; 85027; 86850; 86900; 86901; 94760

== ENCOUNTER 2018-10-27 08:05 | Day surgery (SDC) | payer MEDICARE ==
[2018-10-25 15:22] VITALS: BMI 28.7
--- NOTE | 2018-10-26 22:13 | P.GSHP ---
History of Present Illness H&P Date: 10/27/18 CHIEF COMPLAINT: Colon screen HISTORY OF PRESENT ILLNESS: The patient is a 73-year-old female who presents for colon screen. Lower endoscopy was offered for further evaluation and management. PAST MEDICAL HISTORY: Please see list. PAST SURGICAL HISTORY: Please see list. MEDICATIONS: Please see list. ALLERGIES: Please see list. SOCIAL HISTORY: No illicit drug use FAMILY HISTORY: No reports of Crohn disease or ulcerative colitis. REVIEW OF ORGAN SYSTEMS: CONSTITUTIONAL: No reports of fevers or chills. PHYSICAL EXAM: VITAL SIGNS: Stable GENERAL: Well-developed pleasant in no acute distress. HEENT: No scleral icterus. Extraocular movements grossly intact. Moist buccal mucosa. NECK: Supple without lymphadenopathy. CHEST: Unlabored respirations. Equal bilateral excursions. CARDIOVASCULAR: Regular rate and rhythm. Distal 2+ pulses. ABDOMEN: Soft, nontender, nondistended. MUSCULOSKELETAL: No clubbing, cyanosis, or edema. ASSESSMENT: 1. Colon screen. PLAN: 1. 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, diverticulitis, hx polyps, rectal bleeding, constipation, developed some type of blood clot in abdomen after bowel resection in 2018 History of Any Multi-Drug Resistant Organisms: None Reported Past Surgical History: Bowel Resection, Breast Surgery, Orthopedic Surgery Additional Past Surgical History / Comment(s): left foot bunionectomy, left breast lumpectomy Past Anesthesia/Blood Transfusion Reactions: Motion Sickness, Postoperative Nausea & Vomiting (PONV) Smoking Status: Never smoker - Past Family History Mother Family Medical History: Deep Vein Thrombosis (DVT) Medications and Allergies Home Medications Medication Instructions Recorded Confirmed Type Aspirin [Adult Low Dose Aspirin EC] 81 mg PO DAILY 04/22/17 10/25/18 History Lisinopril [Zestril] 10 mg PO HS 04/22/17 10/25/18 History Omeprazole [PriLOSEC] 20 mg PO DAILY 04/22/17 10/25/18 History Simvastatin [Zocor] 40 mg PO HS 04/22/17 10/25/18 History L.acidoph,Paracasei, B.lactis 1 each PO DAILY 10/25/18 10/25/18 History [Probiotic] Vitamin K-2 1 tab PO DAILY 10/25/18 History Allergies Allergy/AdvReac Type Severity Reaction Status Date / Time amoxicillin Allergy Rash/Hives Verified 10/25/18 12:32 codeine Allergy Hallucinati Verified 10/25/18 12:32 ons hydrocodone [From [place]] Allergy Nausea Verified 10/25/18 12:32 latex Allergy Itching Verified 10/25/18 12:32 Penicillins Allergy Rash/Hives Verified 10/25/18 12:32
[~2018-10-27 08:05] MED LIST changes: -ACETAMINOPHEN TAB 500 MG TAB PO ONE; -ALVIMOPAN 12 MG CAPSULE PO ONE; -Antibiotics per Pharmacy 1 EACH MISC MISCELLANE PRN; -DEXAMETHASONE SOD PHOSPHATE 10 MG/ML 1 ML VIAL IV ONE; -HEPARIN SODIUM,PORCINE 5,000 UNIT/ML 1 ML VIAL SQ ONE; -HYDROmorphone 0.5 MG/0.5 ML SYRINGE IVP PRN; +LACTATED RINGERS 1,000 ML IV SCH; +LIDOCAINE 1% 20 ML VIAL (10MG/ML) FOR IV START INTRADERMA PRN; -ONDANSETRON 4 MG/2 ML VIAL IVP ONE; -ceFAZolin IN SWFI 2 GM/20 ML SYRINGE IVP ONE; -metroNIDAZOLE-NS PMX 500 MG in SALINE 1 100ML.BAG IVPB STA
[2018-10-27 08:21] VITALS: TEMP 97.8
[2018-10-27] MEDS ORDERED: LACTATED RINGERS 1,000 ML IV ONE (08:21)
[2018-10-27] MEDS ORDERED: PROPOFOL 10 MG/ML 20 ML VIAL IV ONE (08:57)
[2018-10-27] MEDS ORDERED: LIDOCAINE 1% INJ 10MG/ML (20 ML MDV) ONE (08:57)
[2018-10-27 09:32] VITALS: RESP 16
--- NOTE | 2018-10-27 09:35 | P.PCN ---
Date of Procedure: 10/27/18 Description of Procedure: PREOPERATIVE DIAGNOSIS: Colonoscopy screening. Diverticulosis, scattered. History of sigmoid colon resection POSTOPERATIVE DIAGNOSIS: Colonoscopy screening. Diverticulosis, scattered. 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 SURGEON: Emma Godwin MD. ANESTHESIA: MAC. INDICATIONS: The patient is a 73-year-old female who presents for colonoscopy screening. Last attempted colonoscopy was 2 years ago and incomplete. Benefits and risks were described and informed consent was obtained. DESCRIPTION OF PROCEDURE: The patient had undergone Suprep. She had been brought into the operating room and laid in the left lateral decubitus position. After adequate intravenous sedation, the rectum was examined with 2% lidocaine jelly. No external hem orrhoids were encountered. The rectal tone was within normal limits. No lesions were palpated in the rectal vault. An Olympus colonoscope was advanced until the ileocecal valve and appendiceal orifice were clearly viewed. The prep was excellent with clear visualization of the mucosal folds. The scope was removed with visualization of each mucosal fold. Scattered diverticulosis was encountered. At the sigmoid colon, angulation from anastomosis was identified with passage of scope. Separately, at the splenic flexure a tight stenosis was also confirmed consistent with the patient's location of pain and injected with Pearl ink. No colonic polyps were found. No evidence of focal colitis was found. Retroflexion of the scope demonstrated grade 1 internal hemorrhoids without active bleeding or inflammation. The colon was desufflated. The patient had tolerated the procedure well. Withdrawal time was over 6 minutes. FINDINGS: Aronchick preparation quality scale 1 (1-5) Internal hemorrhoids, grade 1 No external prolapsed hemorrhoids. No arteriovenous malformations. No adenomatous polyps. No focal colitis. Sigmoid diverticulosis At the sigmoid colon, angulation from anastomosis was identified with passage of scope. Separately, at the splenic flexure a tight stenosis was also confirmed consistent with the patient's location of pain RECOMMENDATIONS: Lower endoscopy in 4 years, 2022 Recommend barium enema for further confirmation of stricture of the colon Plan - Discharge Summary Discharge Rx Participant: Yes New Discharge Prescriptions: No Action Simvastatin [Zocor] 40 mg PO HS Lisinopril [Zestril] 10 mg PO HS Aspirin [Adult Low Dose Aspirin EC] 81 mg PO DAILY Omeprazole [PriLOSEC] 20 mg PO DAILY Vitamin K-2 1 tab PO DAILY L.acidoph,Paracasei, B.lactis [Probiotic] 1 each PO DAILY Discharge Medication List Aspirin [Adult Low Dose Aspirin EC] 81 mg PO DAILY 04/22/17 [History] Lisinopril [Zestril] 10 mg PO HS 04/22/17 [History] Omeprazole [PriLOSEC] 20 mg PO DAILY 04/22/17 [History] Simvastatin [Zocor] 40 mg PO HS 04/22/17 [History] L.acidoph,Paracasei, B.lactis [Probiotic] 1 each PO DAILY 10/25/18 [History] Vitamin K-2 1 tab PO DAILY 10/25/18 [History] Follow up Appointment(s)/Referral(s): Emma Godwin MD [STAFF PHYSICIAN] - 11/16/18 Patient Instructions/Handouts: Diverticulosis Diet (GEN), Diverticulosis (DC) Activity/Diet/Wound Care/Special Instructions: Repeat colonoscopy in 4 years or Colog[place], 2022. Discharge Disposition: HOME SELF-CARE
[2018-10-27 10:14] VITALS: BP 131/62; PULSE 59
--- NOTE | 2018-10-27 17:34 | FL ---
EXAMINATION TYPE: FL barium enema DATE OF EXAM: 10/27/2018 COMPARISON: NONE HISTORY: 73-year-old female large bowel stricture splenic flexure. Patient with left upper quadrant p ain. TECHNIQUE: A single contrast barium enema study is performed. Total fluoroscopy time: 50 seconds. Total images: 26. FINDINGS: Cash Posting Clerk view of the abdomen shows excessive retained colonic air. Because of this, decision was made to proceed with single contrast barium study. There is a staple line at the distal sigmoid from prior r esection and re-anastomosis. The patient reports a history of prior diverticulitis necessitating colo n resection. There is limited distention of the sigmoid colon with diverticulosis present. Excessive redundancy an d overlap limits assessment here. The site of anastomosis is not well seen. With particular attention to the splenic flecture, no obvious constricting lesion or filling defect i s identified. There is some focal tortuosity noted along the upper descending colon. On the right lateral aspect of the ascending colon, there is a 2.7 cm focal area of low density. Refe r to image 17, 18, and 23. Prominent reflux of contrast into the terminal ileum. IMPRESSION: 1. Excessive retained colonic air despite waiting until the afternoon. Single contrast exam was there fore performed. 2. Redundant sigmoid colon causing excessive bowel overlap and limiting assessment in this region. Th ere is sigmoid diverticulosis. The anastomotic site is largely obscured. 3. Questionable 2.7 cm filling defect along the right lateral wall of the ascending colon (images 17, 18, and 23). Some adherent stool material, sessile polyp, or superimposition artifact are differenti al considerations. Correlate with findings on colonoscopy. 4. Otherwise, no suspicious filling defect identified within the remainder of the colon. No constrict ing lesion or focal stenosis seen. We do note some focal tortuosity along the upper descending colon.
== END 2018-10-27 13:45 | disposition home or self-care (01) ==
LOC: ORWHC2ENDO 08:05
PROVIDERS: ATTEND Surgery Plastic and Reconstructive Surgery
DX: Z12.11 Encounter for screening for malignant neoplasm of colon (principal); K56.699 Other intestinal obstruction unspecified as to partial versus complete obstruction; K57.30 Diverticulosis of large intestine without perforation or abscess without bleeding; Z79.82 Long term (current) use of aspirin; Z86.73 Personal history of transient ischemic attack (TIA), and cerebral infarction without residual deficits; K21.9 Gastro-esophageal reflux disease without esophagitis; E78.5 Hyperlipidemia, unspecified; I10 Essential (primary) hypertension; Z79.899 Other long term (current) drug therapy; Z88.5 Allergy status to narcotic agent; Z88.0 Allergy status to penicillin; Z88.1 Allergy status to other antibiotic agents; Z91.040 Latex allergy status
CPT/HCPCS: 74270; 45381; J2001; J2704; 44404; 45378

== ENCOUNTER 2019-03-17 08:37 | Inpatient (IN) | payer MEDICARE ==
--- NOTE | 2019-03-17 08:03 | P.GSHP ---
History of Present Illness H&P Date: 03/17/19 CHIEF COMPLAINT: History of sigmoid volvulus HISTORY OF PRESENT ILLNESS: The patient is a 79-year-old female with cecal volvulus. She reports persistent right lower quadrant abdominal pain. Diagnosis studies also confirms recurrent cecal volvulus. She presents for description of neoplasm including resection. PAST MEDICAL HISTORY: Please see list. PAST SURGICAL HISTORY: Please see list. MEDICATIONS: Please see list. ALLERGIES: Please see list. SOCIAL HISTORY: No illicit drug use FAMILY HISTORY: No reports of Crohn disease or ulcerative colitis. REVIEW OF ORGAN SYSTEMS: CONSTITUTIONAL: Denies any fever or chills. HEENT: Denies any trouble with vision or nosebleeds. No difficulty swallowing. PHYSICAL EXAM: VITAL SIGNS: Stable GENERAL: Well-developed pleasant in no acute distress. HEENT: No scleral icterus. Extraocular movements grossly intact. Moist buccal mucosa. NECK: Supple without lymphadenopathy. CHEST: Unlabored respirations. Equal bilateral excursions. CARDIOVASCULAR: Regular rate and rhythm. Distal 2+ pulses. ABDOMEN: Soft, nontender MUSCULOSKELETAL: No clubbing, cyanosis, or edema. NERUO: Regular 2-12 grossly intact. PSYCH: Alert and oriented to person place and time. ASSESSMENT: 1. History of cecal volvulus PLAN: 1. Benefits and risks of surgical intervention right hemicolectomy described. Robotic-assisted approach was also described. 2. She has completed an enhanced colon recovery program. 3. DVT prophylaxis. 4. Antibiotic prophylaxis. 5. 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 Past Anesthesia/Blood Transfusion Reactions: Motion Sickness, Postoperative Nausea & Vomiting (PONV) Smoking Status: Never smoker - Past Family History Mother Family Medical History: Deep Vein Thrombosis (DVT) Medications and Allergies Home Medications Medication Instructions Recorded Confirmed Type Aspirin [Adult Low Dose Aspirin EC] 81 mg PO DAILY 04/22/17 03/16/19 History Lisinopril [Zestril] 10 mg PO HS 04/22/17 03/16/19 History Omeprazole [PriLOSEC] 20 mg PO DAILY 04/22/17 03/16/19 History Simvastatin [Zocor] 40 mg PO HS 04/22/17 03/16/19 History L.acidoph,Paracasei, B.lactis 1 each PO DAILY 10/25/18 03/16/19 History [Probiotic] Allergies Allergy/AdvReac Type Severity Reaction Status Date / Time amoxicillin Allergy Rash/Hives Verified 03/16/19 08:29 codeine Allergy Hallucinati Verified 03/16/19 08:29 ons hydrocodone [From [place]] Allergy Nausea Verified 03/16/19 08:29 latex Allergy Itching Verified 03/16/19 08:29 Penicillins Allergy Rash/Hives Verified 03/16/19 08:29
[~2019-03-17 08:37] MED LIST changes: +HYDROmorphone 0.5 MG/0.5 ML SYRINGE IVP PRN; -LACTATED RINGERS 1,000 ML IV SCH; -LIDOCAINE 1% 20 ML VIAL (10MG/ML) FOR IV START INTRADERMA PRN; +ONDANSETRON 4 MG/2 ML VIAL IVP PRN
[2019-03-17] MEDS: LACTATED RINGERS 1,000 ML IV SCH (09:25)
[2019-03-17] MEDS ORDERED: LIDOCAINE 1% 20 ML VIAL (10MG/ML) FOR IV START INTRADERMA ONE (09:25)
[2019-03-17] MEDS ORDERED: PROPOFOL 10 MG/ML 20 ML VIAL IV ONE (09:35)
[2019-03-17] MEDS ORDERED: LIDOCAINE 1% INJ 10MG/ML (20 ML MDV) ONE (09:35)
[2019-03-17] MEDS ORDERED: NALOXONE 0.4 MG/ML 1 ML VIAL IV PRN (09:52)
[2019-03-17] MEDS ORDERED: ONDANSETRON 4 MG/2 ML VIAL IVP PRN (09:52)
[2019-03-17] MEDS ORDERED: POLYETHYLENE GLYCOL LYTES SOLN 4,000 ML SOLN.RECON PO ONE (09:54)
[2019-03-17] MEDS ORDERED: Antibiotics per Pharmacy 1 EACH MISC MISCELLANE PRN (09:54)
--- NOTE | 2019-03-17 12:08 | P.PCN ---
Date of Procedure: 03/17/19 Description of Procedure: PREOPERATIVE DIAGNOSIS: Colonoscopy screening. Personal history of colon polyps Cecal volvulus POSTOPERATIVE DIAGNOSIS: Colonoscopy screening. Personal history of colon polyps Cecal volvulus Diverticulosis, scattered. History of sigmoid colectomy OPERATION: Colonoscopy to the ascending colon SURGEON: Emma Godwin MD. ANESTHESIA: MAC. INDICATIONS: The patient is a 73-year-old female who presents with history of cecal volvulus including personal history of colon polyps. Benefits and risks were described and informed consent was obtained. DESCRIPTION OF PROCEDURE: The patient had undergone Suprep. He had been brought into the operating room and laid in the left lateral decubitus position. After adequate intravenous sedation, the rectum was examined with 2% lidocaine jelly. No external hemorrhoids were encountered. The rectal tone was within normal limits. No lesions were palpated in the rectal vault. An Olympus colonoscope was to the ascending colon. The prep was excellent with clear visualization of the mucosal folds. The scope was removed with visualization of each mucosal fold. At the sigmoid colon, an anastomosis was identified without inflammation with angulation. Scattered diverticulosis was encountered. No colonic polyps were found. No evidence of focal colitis was found. Retroflexion of the scope demonstrated grade 1 internal hemorrhoids without active bleeding or inflammation. The colon was desufflated. The patient had tolerated the procedure well. Withdrawal time was over 6 minutes. FINDINGS: Aronchick preparation quality scale 1 (1-5) Internal hemorrhoids, grade 1 No external prolapsed hemorrhoids. No arteriovenous malformations. No adenomatous polyps. No focal colitis. Sigmoid colon anastomosis with angulation Highly redundant cecum consistent with cecal volvulus RECOMMENDATIONS: Lower endoscopy in 5 years2023 with history of polyps
[2019-03-17 12:32] LABS: Basophils # (A) 0.1 k/uL (0-0.2); Basophils % (A) 1 %; Eosinophils # (A) 0.1 k/uL (0-0.7); Eosinophils % (A) 1 %; HCT 44.9 % (34.0-46.0); HGB 14.3 gm/dL (11.4-16.0); Lymphocytes # (A) 1.9 k/uL (1.0-4.8); Lymphocytes % (A) 29 %; MCHC 31.7 g/dL (31.0-37.0); MCV 94.6 fL (80.0-100.0); Mean Platelet Volume 7.1; Monocytes # (A) 0.4 k/uL (0-1.0); Monocytes % (A) 6 %; Neutrophils % (A) 61 %; Platelet Count 211 k/uL (150-450); RBC 4.75 m/uL (3.80-5.40); RDW 12.1 % (11.5-15.5); WBC 6.6 k/uL (3.8-10.6)
[2019-03-17 12:49] LABS: ALT 16 U/L (9-52); AST 23 U/L (14-36); African American GFR (CKD) >90 (>60 ml/min/1.73 sqM); Albumin 3.7 g/dL (3.5-5.0); Alkaline Phosphatase 53 U/L (38-126); Anion Gap 6 mmol/L; Blood Urea Nitrogen 12 mg/dL (7-17); Calcium 9.4 mg/dL (8.4-10.2); Carbon Dioxide 30 mmol/L (22-30); Chloride 106 mmol/L (98-107); Glucose 88 mg/dL (74-99); Non-African American GFR(CKD) 88 (>60 ml/min/1.73 sqM); Potassium 4.2 mmol/L (3.5-5.1); Sodium 142 mmol/L (137-145); Total Protein 6.3 g/dL (6.3-8.2)
[2019-03-17] MEDS: metroNIDAZOLE 500 MG TAB PO SCH ×2 (12:49→15:23)
[2019-03-17] MEDS: NEOMYCIN 500 MG TAB PO SCH ×2 (12:49→15:23)
[2019-03-17] MEDS ORDERED: HYDROmorphone 0.5 MG/0.5 ML SYRINGE IVP PRN (14:06)
[2019-03-17] MEDS: D5-0.45% NACL WITH KCL 20MEQ/L 1,000 ML IV SCH ×2 (17:49→19:58)
[2019-03-17] MEDS: SODIUM CHLORIDE 0.9% 1,000 ML IV SCH ×2 (17:50→19:52)
[2019-03-17] MEDS ORDERED: TEMAZEPAM 15 MG CAP PO ONE (21:00)
[2019-03-17] MEDS: LISINOPRIL 10 MG TAB PO SCH (21:23)
[2019-03-18] MEDS: metroNIDAZOLE 500 MG TAB PO SCH (00:16)
[2019-03-18] MEDS: NEOMYCIN 500 MG TAB PO SCH (00:16)
[2019-03-18] MEDS ORDERED: metroNIDAZOLE-NS PMX 500 MG in SALINE 1 100ML.BAG IVPB ONE (05:00)
[2019-03-18] MEDS: D5-0.45% NACL WITH KCL 20MEQ/L 1,000 ML IV SCH ×2 (05:59→23:05)
[2019-03-18 07:54] LABS: Basophils % (A) 0 %; Eosinophils # (A) 0.1 k/uL (0-0.7); Eosinophils % (A) 2 %; HCT 40.7 % (34.0-46.0); HGB 13.4 gm/dL (11.4-16.0); Lymphocytes # (A) 1.4 k/uL (1.0-4.8); Lymphocytes % (A) 30 %; MCH 31.6 pg (25.0-35.0); MCHC 33.1 g/dL (31.0-37.0); MCV 95.7 fL (80.0-100.0); Mean Platelet Volume 6.6; Monocytes # (A) 0.3 k/uL (0-1.0); Monocytes % (A) 7 %; Neutrophils # (A) 2.7 k/uL (1.3-7.7); Neutrophils % (A) 59 %; Platelet Count 194 k/uL (150-450); RBC 4.25 m/uL (3.80-5.40); RDW 12.1 % (11.5-15.5); WBC 4.6 k/uL (3.8-10.6)
[2019-03-18 08:05] LABS: Albumin 2.9 g/dL (3.5-5.0); Chloride 112 mmol/L (98-107); Glucose 91 mg/dL (74-99); Potassium 4.2 mmol/L (3.5-5.1); Sodium 142 mmol/L (137-145); Total Protein 5.3 g/dL (6.3-8.2)
[2019-03-18] MEDS: PANTOPRAZOLE 40 MG/10 ML VIAL IV SCH (08:05)
[2019-03-18 08:06] LABS: ALT 22 U/L (9-52); AST 21 U/L (14-36); African American GFR (CKD) >90 (>60 ml/min/1.73 sqM); Alkaline Phosphatase 46 U/L (38-126); Anion Gap 5 mmol/L; Blood Urea Nitrogen 7 mg/dL (7-17); Calcium 8.5 mg/dL (8.4-10.2); Carbon Dioxide 25 mmol/L (22-30); Magnesium 2.1 mg/dL (1.6-2.3); Non-African American GFR(CKD) 88 (>60 ml/min/1.73 sqM); Phosphorus 3.7 mg/dL (2.5-4.5); Total Bilirubin 1.2 mg/dL (0.2-1.3)
--- NOTE | 2019-03-18 08:36 | P.HPADDEND ---
H&P Addendum H&P Addendum Date: 03/18/19 Benefits and risks of right hemicolectomy reviewed including robotic assisted approach. Enhanced colon recovery with Mobic, Tylenol, Entereg advised.
[2019-03-18] MEDS ORDERED: SODIUM CHLORIDE 0.9% 1,000 ML IV ONE (08:37)
[2019-03-18] MEDS ORDERED: ENOXAPARIN 40 MG/0.4 ML SYRINGE SQ SCH (09:00)
[2019-03-18] MEDS: LACTATED RINGERS 1,000 ML IV SCH (09:09)
[2019-03-18] MEDS ORDERED: MELOXICAM 7.5 MG TAB PO ONE (10:00)
[2019-03-18] MEDS ORDERED: ALVIMOPAN 12 MG CAPSULE PO ONE (10:00)
[2019-03-18] MEDS ORDERED: ACETAMINOPHEN TAB 500 MG TAB PO ONE (10:00)
[2019-03-18] MEDS ORDERED: IV FLUID CONTINUATION 1,000 ML IV ONE ×2 (10:12)
[2019-03-18] MEDS ORDERED: MIDAZOLAM 2 MG/2 ML VIAL IV ONE (10:28)
[2019-03-18] MEDS ORDERED: fentaNYL (PF) 50 MCG/ML 2 ML AMP IV ONE ×2 (10:28→12:10)
[2019-03-18] MEDS ORDERED: LACTATED RINGERS 1,000 ML IV ONE ×4 (10:45→21:22)
[2019-03-18] MEDS ORDERED: ONDANSETRON 4 MG/2 ML VIAL IVP ONE (11:10)
[2019-03-18] MEDS ORDERED: DEXAMETHASONE SOD PHOSPHATE 10 MG/ML 1 ML VIAL IV ONE (11:10)
[2019-03-18] MEDS ORDERED: LIDOCAINE 1% INJ 10MG/ML (20 ML MDV) ONE (13:41)
[2019-03-18] MEDS ORDERED: ePHEDrine SULFATE/0.9% NACL/PF 50 MG/5 ML SYRINGE IV ONE (13:41)
[2019-03-18] MEDS ORDERED: NEOSTIGMINE 1 MG/ML 10 ML VIAL ONE (13:41)
[2019-03-18] MEDS ORDERED: PROPOFOL 10 MG/ML 20 ML VIAL IV ONE (13:41)
[2019-03-18] MEDS ORDERED: GLYCOPYRROLATE 0.2 MG/ML 2 ML VIAL ONE (13:41)
[2019-03-18] MEDS ORDERED: MIDAZOLAM 2 MG/2 ML VIAL ONE (13:41)
[2019-03-18] MEDS ORDERED: fentaNYL (PF) 50 MCG/ML 2 ML AMP ONE (13:41)
[2019-03-18] MEDS ORDERED: ROCURONIUM BROMIDE 10 MG/ML 10 ML VIAL IV ONE (13:41)
[2019-03-18] MEDS ORDERED: SUCCINYLCHOLINE CHLORIDE 100 MG/5 ML SYR IV ONE (13:41)
[2019-03-18] MEDS ORDERED: SODIUM CHLORIDE 0.9% 100 ML with ceFAZolin 2,000 MG IV ONE ×2 (14:00)
[2019-03-18] MEDS ORDERED: LIDOCAINE 1%-EPI 1:100,000 20 ML VIAL SQ ONE (14:22)
[2019-03-18] MEDS ORDERED: metroNIDAZOLE-NS PMX 500 MG in SALINE 1 100ML.BAG IVPB STA (17:35)
[2019-03-18] MEDS ORDERED: BENZOCAINE/MENTHOL LOZENG 1 EACH LOZENGE MUCOUS MEM PRN (20:08)
[2019-03-18] MEDS ORDERED: HYDROmorphone 1 MG/ML 1 ML SYRINGE IVP PRN (20:08)
--- NOTE | 2019-03-18 20:08 | P.OP ---
Date of Procedure: 03/18/19 Description of Procedure: Date of Procedure: 03/18/19 SURGEON: CAL CLMEENTS MD Preoperative Diagnosis: 1. Cecal volvulus with large bowel obstruction 2. Right lower quadrant abdominal pain 3. Abnormal barium enema with polyp ascending colon 4. Right upper quadrant abdominal pain 5. History of transient ischemic attack 6. Hyperlipidemia 7. Hypertensive heart disease 8. Chronic constipation 9. Postoperative nausea and vomiting 10. Past history of severe blunt abdominal trauma 11. Sigmoid diverticulosis with diverticulitis Postoperative Diagnosis: 1. Cecal volvulus with large bowel obstruction 2. Right lower quadrant abdominal pain 3. Abnormal barium enema with polyp ascending colon 4. Right upper quadrant abdominal pain 5. History of transient ischemic attack 6. Hyperlipidemia 7. Hypertensive heart disease 8. Chronic constipation 9. Postoperative nausea and vomiting 10. Past history of severe blunt abdominal trauma 11. Sigmoid diverticulosis with diverticulitis 12. Peritoneal adhesions pelvis Procedure(s) Performed: 1. Robot-assisted daVinci Xi laparoscopic lysis of adhesions over 1 hour 2. Robot-assisted daVinci Xi laparoscopic extended right hemicolectomy Anesthesia: GETA, local, epidural Estimated Blood Loss (ml): 125 Pathology: other (Right hemicolectomy, extended) Condition: stable Disposition: floor COMPLICATIONS: None. Operative Findings: 1. Highly redundant hepatic flexure including ascending colon with tattoo confirmed at hepatic flexure 2. Moderate pelvic adhesions involving small bowel requiring extensive lysis of adhesions 1 hour 3. Appendix including right colon removed in total 4. Initial docking along the left lateral abdominal wall including double docking upper abdomen to address pelvic adhesions 5. Console time 4 hours 29 minutes INDICATIONS: The patient is a 73-year-old female who presents with intermittent large bowel obstruction secondary to cecal volvulus. Surgical intervention with colon resection was described in detail. Benefits and risks, including infection, open surgery possibility for additional surgery was discussed at length. Informed consent was obtained. All questions of the patient and family were answered. DESCRIPTION: Earlier the patient had undergone a bowel prep using the enhanced colon recovery program. An epidural was placed by anesthesia. The patient was transferred to the operating room and placed in supine position. After general anesthetic, a montana catheter was placed. The abdomen was then prepped and draped in standard sterile fashion as Ioban was placed along the abdomen to minimize any contamination of skin floor. After a timeout protocol was performed, attention was then brought to the left upper quadrant whereby a 0 degree 5 mm laparoscopic trocar entry was performed. The abdominal cavity was entered and insufflated to 15 mmHg pressure, which was tolerated well. Diagnostic laparoscopy demonstrated no injury to bowel, viscera or mesentery. The liver was remarkable for hepatomegaly. Next trochars were placed at left lateral abdominal wall. Ports were placed 8 cm apart from each other including 15-20 cm away from the target anatomy of the right pelvis. The 5-mm port was exchanged for a 8 mm robotic port. The patient was then placed in Trendelenburg position, at least 16, with the right side up 6. The robotic da Kanika XI system was primed and docked from the left side of the patient. Using atraumatic graspers and vessel sealer, the robotic system was docked and primed as described. Instruments were interchanged by the assistant maintenance manager including scissors, needle spike driver, robotic stapler and vessel sealer. Next, attention was brought to identify the cecum. A stay suture using 0 silk was placed along the anterior serosa of the along the terminal ileum. The terminal ileum, appendix and ascending colon mesentery was mobilized using a vessel sealer whereby the colon was marked and tagged. Moderately redundant right colon was identified. Active cecal volvulus with intermittent large bowel obstruction was found with highly redundant right colon including hepatic flexure confirmed. Using robot stapler 60 mm white load, the distal ileum was divided 8 centimeters proximal to the ileocecal valve. The mesentery of the ascending colon was mobilized towards the midline using a vessel sealer. Secondary to the highly redundant hepatic flexure and ascending colon, the right colon was mobilized to the mid transverse colon and prepared for resection. The colon was divided using 60 mm blue loads. The rest of the colon mesentery was mobilized using vessel sealer including using blunt dissection. The ascending colon was mobilized from proximal to distal with the meeting point of the hepatic flexure The vascular pedicle of the ileocolic artery was controlled using vessel sealer. Moderate adhesions of the terminal ileum was confirmed preventing creation of anastomosis. As result, a double dock technique was performed with additional two 8-mm trochars placed along the epigastrium and right upper quadrant. Dense peritoneal adhesions were identified involving the pelvis and the small bowel that was mobilized using cautery and vessel sealer releasing all adhesions for over 1 hour. The robot was re-docked along the left lateral abdominal wall. The mid transverse colon and distal ileum was brought in a side to side antiperistaltic anastomotic fashion after placing horizontal buttress sutures along the proposed mary kate-lumen using 3-0 silk. A colotomy and enterotomy was prepared along both limbs along the antimesenteric border. Next, 60 mm blue stapler loads were fired to create the mary kate-lumen. The mary kate-lumen was reapproximated using 3-0 silk followed by 60 mm blue load for closure of the enterostomy. The mesenteric defect was oversewn using 2-0 V LOC 9 inch to prevent internal hernia. All needles were removed from the abdominal cavity. The robot was undocked. I re-scrubbed into the case. Via the 12 mm port of the left upper quadrant, the right colon was removed after widening the skin incision to 3-cm. All sponges were removed from the abdominal cavity. The fascial defect was oversewn using 0 Vicryl and Keaton Bland. Next all pneumoperitoneum was evacuated from the abdominal cavity. The 8-mm trocar sites were reapproximated using 4-0 Monocryl in an interrupted subcuticular fashion. Local anesthetic was infiltrated to all wounds for postop analgesia. All incisions were also cleansed with diluted hydrogen peroxide. An optifoam was placed over the left upper quadrant incision of the colon extraction site. Liquid glue was applied to the rest of the skin incisions. The patient had tolerated the procedure well. The patient was extubated successfully. Intraoperative photos were reviewed with the patient's family who were overall pleased with the level of care. The patient was transferred to the [facility] in stable condition.
[2019-03-18] MEDS ORDERED: DEXAMETHASONE SOD PHOSPHATE 10 MG/ML 1 ML VIAL IV PRN (20:12)
[2019-03-18] MEDS ORDERED: ACETAMINOPHEN TAB 325 MG TAB PO PRN (20:13)
[2019-03-18] MEDS ORDERED: diphenhydrAMINE 50 MG/ML 1 ML VIAL IVP PRN (20:14)
[2019-03-18] MEDS ORDERED: NALOXONE 0.4 MG/ML 1 ML VIAL IV PRN (21:46)
[2019-03-18] MEDS ORDERED: ROPIVACAINE 300 MG, HYDROMORPHONE (PF) 5 MG in SODIUM CHLORIDE 0.9% 190 ML EPIDURAL PRN (21:46)
[2019-03-18] MEDS: ALVIMOPAN 12 MG CAPSULE PO SCH ×2 (23:04→23:13)
[2019-03-18] MEDS: HEPARIN SODIUM,PORCINE 5,000 UNIT/ML 1 ML VIAL SQ SCH (23:07)
[2019-03-18] MEDS: LISINOPRIL 10 MG TAB PO SCH (23:08)
[2019-03-19] MEDS: ONDANSETRON 4 MG/2 ML VIAL IVP SCH ×3 (00:06→13:42)
[2019-03-19] MEDS: metroNIDAZOLE-NS PMX 500 MG in SALINE 1 100ML.BAG IVPB SCH ×3 (01:01→13:42)
[2019-03-19] MEDS: DEXAMETHASONE SOD PHOSPHATE 4 MG/ML 1 ML VIAL IV SCH ×4 (01:55→17:57)
[2019-03-19] MEDS: D5-0.45% NACL WITH KCL 20MEQ/L 1,000 ML IV SCH ×2 (02:07→17:57)
[2019-03-19 06:58] LABS: Basophils % (A) 0 %; Eosinophils # (A) 0.1 k/uL (0-0.7); Eosinophils % (A) 1 %; HCT 39.4 % (34.0-46.0); HGB 13.2 gm/dL (11.4-16.0); Lymphocytes # (A) 0.5 k/uL (1.0-4.8); Lymphocytes % (A) 4 %; MCH 32.3 pg (25.0-35.0); MCHC 33.4 g/dL (31.0-37.0); MCV 96.6 fL (80.0-100.0); Mean Platelet Volume 6.8; Monocytes # (A) 0.4 k/uL (0-1.0); Monocytes % (A) 3 %; Neutrophils # (A) 10.7 k/uL (1.3-7.7); Neutrophils % (A) 92 %; Platelet Count 180 k/uL (150-450); RBC 4.08 m/uL (3.80-5.40); RDW 11.9 % (11.5-15.5); WBC 11.6 k/uL (3.8-10.6)
[2019-03-19 07:08] LABS: African American GFR (CKD) >90 (>60 ml/min/1.73 sqM); Anion Gap 6 mmol/L; Blood Urea Nitrogen 8 mg/dL (7-17); Calcium 8.6 mg/dL (8.4-10.2); Carbon Dioxide 25 mmol/L (22-30); Chloride 110 mmol/L (98-107); Glucose 160 mg/dL (74-99); Non-African American GFR(CKD) >90 (>60 ml/min/1.73 sqM); Potassium 4.3 mmol/L (3.5-5.1); Sodium 141 mmol/L (137-145)
[2019-03-19] MEDS: HEPARIN SODIUM,PORCINE 5,000 UNIT/ML 1 ML VIAL SQ SCH ×2 (08:24→20:37)
[2019-03-19] MEDS: PANTOPRAZOLE 40 MG/10 ML VIAL IV SCH (08:24)
[2019-03-19] MEDS ORDERED: SODIUM CHLORIDE 0.9% 1,000 ML IV ONE (09:01)
--- NOTE | 2019-03-19 09:01 | P.PN ---
Subjective Progress Note Date: 03/19/19 CHIEF COMPLAINT: Cecal volvulus HISTORY OF PRESENT ILLNESS: The patient is a 73-year-old female status post right hemicolectomy. She reports moderate dizziness including while being in bed. She has epidural running at 7. She has nauseas as a result. She reports being attacked by a bull to the abdomen. No C-sections in the past. Pain is fair. ROS: No bowel movements. No fevers or chills. No new chest pain. No productive sputum PHYSICAL EXAM: VITAL SIGNS: Reviewed CONSTITUTIONAL: Well developed and in no acute distress. EYES: Conjuctivae without sclera icterus. Extraocular movements grossly intact. HEAD, EARS, NOSE, THROAT: Moist buccal mucosa. Head is atraumatic, normocephalic. Hears conversational speech. No nasal drainage. NECK: Supple. No thyroidomegaly. RESPIRATORY: Non-labored respirations and equal bilateral excursions. CARDIOVASCULAR: Palpable 2+ radial pulses. ABDOMEN: Dressing intact MUSCULOSKELETAL: No gross deformity of the lower extremities noted. No clubbing. No cyanosis. SKIN: Good skin turgor. Well perfused. NEUROLOGIC: Cranial nerves I through XII grossly intact. No focal or lateralizing signs. PSYCH: Appropriate affect. Alert and oriented to person, place and time. ASSESSMENT: 1. Cecal volvulus status post right hemicolectomy 2. Vertigo PLAN: 1. Adjust epidural for dizziness or discontinue if she continues to not tolerate 2. She is on scheduled anti-emetics. 3. Continue antibiotics 24 hrs, post op 4. Meclizine for vertigo Objective - Vital Signs Vital signs: Vital Signs Temp 97.9 F 03/19/19 07:00 Pulse 61 03/19/19 07:00 Resp 14 03/19/19 07:00 BP 110/66 03/19/19 07:00 Pulse Ox 97 03/19/19 07:00 Intake & Output 03/18/19 03/19/19 03/19/19 18:59 06:59 18:59 Intake Total 3200 200 Output Total 1165 Balance 3200 -965 Intake: IV 3200 200 Output: Urine 1040 Estimated Blood Loss 125 Other: Voiding Method Indwelling Catheter - Labs CBC & Chem 7: 03/22/19 06:26 03/22/19 06:26 Labs: Abnormal Lab Results - Last 24 Hours (Table) 03/19/19 03/19/19 Range/Units 06:45 06:45 WBC 11.6 H (3.8-10.6) k/uL Neutrophils # 10.7 H (1.3-7.7) k/uL Lymphocytes # 0.5 L (1.0-4.8) k/uL Chloride 110 H (98-107) mmol/L Glucose 160 H (74-99) mg/dL Assessment and Plan (1) Cecal volvulus Status: Acute Code(s): K56.2 - VOLVULUS SNOMED Code(s): 749176171 (2) Postoperative nausea and vomiting Status: Acute Code(s): R11.2 - NAUSEA WITH VOMITING, UNSPECIFIED; Z98.890 - OTHER SPECIFIED POSTPROCEDURAL STATES SNOMED Code(s): 3535173 (3) Vertigo Status: Acute Code(s): R42 - DIZZINESS AND GIDDINESS SNOMED Code(s): 351930660 (4) Dizziness Status: Acute Code(s): R42 - DIZZINESS AND GIDDINESS SNOMED Code(s): 019039877 (5) Hyperlipidemia Status: Acute Code(s): E78.5 - HYPERLIPIDEMIA, UNSPECIFIED SNOMED Code(s): 91621071 (6) Hypertensive heart disease Status: Acute Code(s): I11.9 - HYPERTENSIVE HEART DISEASE WITHOUT HEART FAILU RE SNOMED Code(s): 22856832 (7) Sigmoid volvulus Status: Acute Code(s): K56.2 - VOLVULUS SNOMED Code(s): 379259512
[2019-03-19] MEDS: METOCLOPRAMIDE 5 MG/ML 2 ML VIAL IVP PRN (09:14)
[2019-03-19] MEDS: MECLIZINE 25 MG TAB PO SCH (09:30)
--- NOTE | 2019-03-19 09:33 | P.PN ---
Progress Note - Text Progress Note Date: 03/19/19 Patient complaining of dizzyness. Denies pain or headache. Moving legs with some weakness and numbness in the thighs. Epidural @ 7 ml/hr VSS Back - epidural site clean and dry A/P POD#1 s/p R hemicolectomy - may titrate epidural down to 5 ml/hr if pt continues to have no pain
[2019-03-19] MEDS ORDERED: ONDANSETRON 4 MG/2 ML VIAL IVP PRN (14:56)
[2019-03-19] MEDS: LISINOPRIL 10 MG TAB PO SCH (20:37)
[2019-03-20] MEDS: D5-0.45% NACL WITH KCL 20MEQ/L 1,000 ML IV SCH ×4 (00:44→21:13)
[2019-03-20] MEDS: DEXAMETHASONE SOD PHOSPHATE 4 MG/ML 1 ML VIAL IV SCH ×4 (00:44→17:54)
[2019-03-20] MEDS: METOCLOPRAMIDE 5 MG/ML 2 ML VIAL IVP PRN (00:53)
[2019-03-20 07:31] LABS: Basophils % (A) 0 %; Eosinophils % (A) 0 %; HCT 38.6 % (34.0-46.0); HGB 12.5 gm/dL (11.4-16.0); Lymphocytes # (A) 0.7 k/uL (1.0-4.8); Lymphocytes % (A) 5 %; MCH 31.2 pg (25.0-35.0); MCHC 32.4 g/dL (31.0-37.0); MCV 96.5 fL (80.0-100.0); Monocytes # (A) 0.6 k/uL (0-1.0); Monocytes % (A) 4 %; Neutrophils % (A) 91 %; Platelet Count 200 k/uL (150-450); RDW 12.2 % (11.5-15.5); WBC 14.3 k/uL (3.8-10.6)
[2019-03-20 07:36] LABS: African American GFR (CKD) >90 (>60 ml/min/1.73 sqM); Anion Gap 5 mmol/L; Blood Urea Nitrogen 13 mg/dL (7-17); Calcium 8.9 mg/dL (8.4-10.2); Carbon Dioxide 26 mmol/L (22-30); Chloride 108 mmol/L (98-107); Glucose 121 mg/dL (74-99); Non-African American GFR(CKD) 80 (>60 ml/min/1.73 sqM); Potassium 4.6 mmol/L (3.5-5.1); Sodium 139 mmol/L (137-145)
--- NOTE | 2019-03-20 08:25 | P.PN ---
Progress Note - Text Progress Note Date: 03/20/19 Patient complaining of dizzyness. Meclizine added with some improvement. Some incisional pain. Denies headache. Moving legs with some weakness and numbness in the thighs. Epidural @ 4 ml/hr VSS Back - epidural site clean and dry A/P POD#2 s/p R hemicolectomy - may titrate epidural up to 6 ml/hr if pt having pain
[2019-03-20] MEDS: HEPARIN SODIUM,PORCINE 5,000 UNIT/ML 1 ML VIAL SQ SCH ×2 (09:09→21:13)
[2019-03-20] MEDS: PANTOPRAZOLE 40 MG/10 ML VIAL IV SCH (09:09)
[2019-03-20] MEDS: MECLIZINE 25 MG TAB PO SCH (09:10)
[2019-03-20] MEDS ORDERED: BUTALB/APAP/CAFF 50-325-40MG TAB PO STA (10:39)
[2019-03-20] MEDS ORDERED: SUMAtriptan SUCCINATE 6 MG/0.5 ML VIAL SQ STA (10:40)
--- NOTE | 2019-03-20 10:45 | P.PN ---
Subjective Progress Note Date: 03/20/19 CHIEF COMPLAINT: Cecal volvulus HISTORY OF PRESENT ILLNESS: The patient is a 73-year-old female status post right hemicolectomy. Patient is postop day 2 status post extended right hemicolectomy and lysis of adhesions. She has persistent dizziness including nausea and headache. She reports dizziness started after her epidural. She reports headache which was pre-existing to her surgery however more prominent since surgery. As a result of her dizziness, she reports the room is spinning. She has difficulty with standing up. She has history of severe postop nausea and vomiting as well. Her pain is tolerable. Her main complaint include severe headache with severe nausea and dizziness. She reports daily caffeine intake. "I don't take things for headache." ROS: No bowel movements. No fevers or chills. No new chest pain. No productive sputum PHYSICAL EXAM: VITAL SIGNS: Reviewed CONSTITUTIONAL: Well developed and in no acute distress. EYES: Conjuctivae without sclera icterus. Extraocular movements grossly intact. HEAD, EARS, NOSE, THROAT: Moist buccal mucosa. Head is atraumatic, normocephalic. Hears conversational speech. No nasal drainage. NECK: Supple. No thyroidomegaly. RESPIRATORY: Non-labored respirations and equal bilateral excursions. MUSCULOSKELETAL: No gross deformity of the lower extremities noted. No clubbing. No cyanosis. SKIN: Good skin turgor. Well perfused. NEUROLOGIC: Cranial nerves I through XII grossly intact. No focal or lateralizing signs. PSYCH: Appropriate affect. Alert and oriented to person, place and time. ABDOMEN: Mild tenderness. Dressings intact. : Urine is dark manolo CARDIO: Regular rate regular rhythm LABS: Reviewed with white blood cell count elevated from 11-14,000. Troponins normal. ASSESSMENT: 1. Cecal volvulus 2. Migraine headache, present on admission 3. Pre-existing severe postop nausea or vomiting 4. Dizziness PLAN: 1. Recommend discontinuing epidural as she has risk factors including dizziness, headache, severe nausea exacerbated since epidural placement. 2. For headaches, Fioricet including Imitrex started. 3. Hold diet except ice chips and popsicle 4. IV fluid bolus for dark manolo urine 5. Cardiology consult for preexistent symptomatic bradycardia Objective - Vital Signs Vital signs: Vital Signs Temp 98.1 F 03/20/19 07:00 Pulse 80 03/20/19 07:00 Resp 18 03/20/19 07:00 BP 137/76 03/20/19 07:00 Pulse Ox 95 03/20/19 07:00 Intake & Output 03/19/19 03/20/19 03/20/19 18:59 06:59 18:59 Other: Voiding Method Indwelling Catheter Indwelling Catheter Indwelling Catheter # Voids 1 - Labs CBC & Chem 7: 03/22/19 06:26 03/22/19 06:26 Labs: Abnormal Lab Results - Last 24 Hours (Table) 03/20/19 03/20/19 Range/Units 06:21 06:21 WBC 14.3 H (3.8-10.6) k/uL Neutrophils # 13.0 H (1.3-7.7) k/uL Lymphocytes # 0.7 L (1.0-4.8) k/uL Chloride 108 H (98-107) mmol/L Glucose 121 H (74-99) mg/dL Assessment and Plan (1) Migraine Status: Acute Code(s): G43.909 - MIGRAINE, UNSP, NOT INTRACTABLE, WITHOUT STATUS MIGRAINOSUS SNOMED Code(s): 78694397 (2) Spinal headache Status: Acute Code(s): G97.1 - OTHER REACTION TO SPINAL AND LUMBAR PUNCTURE SNOMED Code(s): 540151089 (3) Cecal volvulus Status: Acute Code(s): K56.2 - VOLVULUS SNOMED Code(s): 542627728 (4) Dizziness Status: Acute Code(s): R42 - DIZZINESS AND GIDDINESS SNOMED Code(s): 840269245 (5) Postoperative nausea and vomiting Status: Acute Code(s): R11.2 - NAUSEA WITH VOMITING, UNSPECIFIED; Z98.890 - OTHER SPECIFIED POSTPROCEDURAL STATES SNOMED Code(s): 9960393 (6) Vertigo Status: Acute Code(s): R42 - DIZZINESS AND GIDDINESS SNOMED Code(s): 376601997 (7) Bradycardia Status: Acute Code(s): R00.1 - BRADYCARDIA, UNSPECIFIED SNOMED Code(s): 75429393
--- NOTE | 2019-03-20 11:43 | P.PN ---
Subjective This is a pleasant 73-year-old female has medical history significant for hypertension and dyslipidemia. She underwent hemicolectomy 2 days ago. She saw Dr. Strickland in the preoperative setting. We've been asked to see her during this admission secondary to bradycardia. Per the nurse yesterday afternoon while she was in the room with the patient the patient was complaining of feeling dizzy. Epidural was still in place and there were titrating her dose down. Vital signs obtained heart rate was 42 blood pressure 109/66. Patient wa s seen and examined resting comfortably laying flat in bed in no acute distress. The nurses in the process of removing the epidural at this time. The patient does complain of intermittent dizziness that is ongoing. Blood pressure today 137/76 heart rate 88 afebrile maintaining oxygen saturation on room air. Telemetry tracings reveal persistent sinus mechanism. No evidence of acute bradycardia arrhythmia. EKG reviewed, no significant bradycardia appreciated. Currently maintained on lisinopril 10 mg at bedtime. Laboratory data reviewed, WBC 14.3, hemoglobin 12.5, platelets 200, sodium 139, potassium 4.6, creatinine 0.76, magnesium 2.1, troponin negative 1. GENERAL: Well-appearing, well-nourished and in no acute distress. NECK: Supple without JVD or thyromegaly. LUNGS: Breath sounds clear to auscultation bilaterally. Respiration equal and unlabored. No wheezes, rales or rhonchi. HEART: Regular rate and rhythm with systolic ejection murmur at the base, no rubs or gallops. S1 and S2 heard. EXTREMITIES: Normal range of motion, no edema. No clubbing or cyanosis. Peripheral pulses intact. ASSESSMENT Hemicolectomy POD #2 Sinus bradycardia Hypertension, maintained on lisinopril Dizziness with epidural in place, being removed today PLAN Telemetry tracings unremarkable thus far. Check TSH. Obtain 2D echocardiogram and doppler study to assess cardiac structure and function. Continue to monitor on telemetry for an additional 24 hours. Bradycardia noted by auscultation per the nurse, no documented tracings at that time as she was not on telemetry at the time. Ongoing medical management per surgical team. Nurse Practitioner note has been reviewed, I agree with a documented findings and plan of care. Patient was seen and examined. Objective - Vital Signs Vital signs: Vital Signs Temp 98.1 F 03/20/19 07:00 Pulse 80 11/10/19 07:00 Resp 18 03/20/19 07:00 BP 137/76 03/20/19 07:00 Pulse Ox 95 03/20/19 07:00 Intake & Output 03/19/19 03/20/19 03/20/19 18:59 06:59 18:59 Other: Voiding Method Indwelling Catheter Indwelling Catheter Indwelling Catheter # Voids 1 - Labs CBC & Chem 7: 03/20/19 06:21 03/20/19 06:21 Labs: Abnormal Lab Results - Last 24 Hours (Table) 03/20/19 03/20/19 Range/Units 06:21 06:21 WBC 14.3 H (3.8-10.6) k/uL Neutrophils # 13.0 H (1.3-7.7) k/uL Lymphocytes # 0.7 L (1.0-4.8) k/uL Chloride 108 H (98-107) mmol/L Glucose 121 H (74-99) mg/dL
[2019-03-20] MEDS: metroNIDAZOLE-NS PMX 500 MG in SALINE 1 100ML.BAG IVPB SCH ×2 (11:56→17:57)
--- NOTE | 2019-03-20 12:19 | P.CRDCN ---
History of Present Illness History of present illness: This is a pleasant 73-year-old female has medical history significant for hypertension and dyslipidemia. She underwent hemicolectomy 2 days ago[address] She saw Dr. Strickland in the preoperative setting. We've been asked to see her during this admission secondary to bradycardia. Per the nurse yesterday afternoon while she was in the room with the patient the patient was complaining of feeling dizzy. Epidural was still in place and there were titrating her dose down. Vital signs obtained heart rate was 42 blood pressure 109/66. Patient was seen and examined resting comfortably laying flat in bed in no acute distress. The nurses in the process of removing the epidural at this time. The patient does complain of intermittent dizziness that is ongoing. Blood pressure today 137/76 heart rate 88 afebrile maintaining oxygen saturation on room air. Telemetry tracings reveal persistent sinus mechanism. No evidence of acute bradycardia arrhythmia. EKG reviewed, no significant bradycardia appreciated. Currently maintained on lisinopril 10 mg at bedtime. Laboratory data reviewed, WBC 14.3, hemoglobin 12.5, platelets 200, sodium 139, potassium 4.6, creatinine 0.76, magnesium 2.1, troponin negative 1. At the time of my exam: CONSTITUTIONAL: Denies fever. Denies chills. EYES: Denies blurred vision. Denies vision changes. Denies eye pain. EARS, NOSE, MOUTH & THROAT: Denies headache. Denies sore throat. Denies ear pain. CARDIOVASCULAR: Denies chest pain. Denies shortness of breath. Denies orthopnea. Denies PND. Denies palpitations. RESPIRATORY: Denies cough. GASTROINTESTINAL: Denies abdominal pain. Denies diarrhea. Denies constipation. Denies nausea. Denies vomiting. MUSCULOSKELETAL: Denies myalgias. INTEGUMENTARY: Denies pruitis. Denies rash. NEUROLOGIC: Denies numbness. Denies tingling. Denies weakness. PSYCHIATRIC: Denies anxiety. Denies depression. ENDOCRINE: Denies fatigue. Denies weight change. Denies polydipsia. Denies polyurina. GENITOURINARY: Denies burning, hematuria or urgency with micturation. HEMATOLOGIC: Denies history of anemia. Denies bleeding. GENERAL: Well-appearing, well-nourished and in no acute distress. NECK: Supple without JVD or thyromegaly. LUNGS: Breath sounds clear to auscultation bilaterally. Respiration equal and unlabored. No wheezes, rales or rhonchi. HEART: Regular rate and rhythm with systolic ejection murmur at the base, no rubs or gallops. S1 and S2 heard. EXTREMITIES: Normal range of motion, no edema. No clubbing or cyanosis. Peripheral pulses intact. ASSESSMENT Hemicolectomy POD #2 Sinus bradycardia Hypertension, maintained on lisinopril Dizziness with epidural in place, being removed today PLAN Telemetry tracings unremarkable thus far. Check TSH. Obtain 2D echocardiogram and doppler study to assess cardiac structure and function. Continue to monitor on telemetry for an additional 24 hours. Bradycardia noted by auscultation per the nurse, no documented tracings at that time as she was not on telemetry at the time. Ongoing medical management per surgical team. Nurse Practitioner note has been reviewed, I agree with a documented findings and plan of care. Patient was seen and examined. Past Medical History Past Medical History: CVA/TIA, GERD/Reflux, Hyperlipidemia, Hypertension Additional Past Medical History / Comment(s): TIA 2012- no effects, diverticulitis, hx polyps, rectal bleeding, constipation, developed some type of blood clot in abdomen after bowel resection in 2018 History of Any Multi-Drug Resistant Organisms: None Reported Past Surgical History: Bowel Resection, Breast Surgery, Orthopedic Surgery Additional Past Surgical History / Comment(s): left foot bunionectomy, left breast lumpectomy-BENIGN, COLONOSCOPY. Past Anesthesia/Blood Transfusion Reactions: Motion Sickness, Postoperative Nausea & Vomiting (PONV) Past Psychological History: No Psychological Hx Reported Smoking Status: Never smoker Past Alcohol Use History: None Reported Past Drug Use History: None Reported - Past Family History Mother Family Medical History: Deep Vein Thrombosis (DVT) Medications and Allergies Home Medications Medication Instructions Recorded Confirmed Type Aspirin [Adult Low Dose Aspirin EC] 81 mg PO DAILY 04/22/17 03/17/19 History Lisinopril [Zestril] 10 mg PO HS 04/22/17 03/17/19 History Omeprazole [PriLOSEC] 20 mg PO DAILY 04/22/17 03/17/19 History Simvastatin [Zocor] 40 mg PO HS 04/22/17 03/17/19 History L.acidoph,Paracasei, B.lactis 1 each PO DAILY 10/25/18 03/17/19 History [Probiotic] Allergies Allergy/AdvReac Type Severity Reaction Status Date / Time amoxicillin Allergy Rash/Hives Verified 03/17/19 09:06 codeine Allergy Hallucinati Verified 03/17/19 09:06 ons hydrocodone [From [place]] Allergy Nausea Verified 03/17/19 09:06 latex Allergy Itching Verified 03/17/19 09:06 Penicillins Allergy Rash/Hives Verified 03/17/19 09:06 Physical Exam Vitals: Vital Signs Temp Pulse Pulse Resp BP Pulse Ox 03/20/19 07:00 98.1 F 80 18 137/76 95 03/20/19 02:25 98.2 F 81 19 122/68 94 L 03/19/19 19:24 97.7 F 60 14 119/73 98 03/19/19 15:00 97.9 F 64 18 124/74 96 Intake and Output 03/19/19 03/20/19 03/20/19 22:59 06:59 14:59 Other: Voiding Method Indwelling Catheter Indwelling Catheter # Voids 1 Results 03/20/19 06:21 03/20/19 06:21 Cardiac Enzymes 03/19/19 Range/Units 15:17 Troponin I <0.012 (0.000-0.034) ng/mL CBC 03/20/19 Range/Units 06:21 WBC 14.3 H (3.8-10.6) k/uL RBC 4.00 (3.80-5.40) m/uL Hgb 12.5 (11.4-16.0) gm/dL Hct 38.6 (34.0-46.0) % Plt Count 200 (150-450) k/uL Comprehensive Metabolic Panel 03/20/19 Range/Units 06:21 Sodium 139 (137-145) mmol/L Potassium 4.6 (3.5-5.1) mmol/L Chloride 108 H (98-107) mmol/L Carbon Dioxide 26 (22-30) mmol/L BUN 13 (7-17) mg/dL Creatinine 0.76 (0.52-1.04) mg/dL Glucose 121 H (74-99) mg/dL Calcium 8.9 (8.4-10.2) mg/dL Current Medications Generic Name Dose Route Start Last Admin Trade Name Freq PRN Reason Stop Dose Admin Acetaminophen 650 mg 03/18/19 20:13 Tylenol Tab PO Q6HR PRN Fever and/ or Pain Benzocaine/Menthol 1 each 03/18/19 20:08 Cepacol Lozenge MUCOUS MEM Q1HR PRN Sore Throat Dexamethasone Sodium Phosphate 4 mg 03/19/19 00:00 03/20/19 12:00 Decadron IV 4 mg Q6HR CHRIS Administration Dexamethasone Sodium Phosphate 10 mg 03/18/19 20:12 Decadron IV ONCE PRN Nausea Diphenhydramine HCl 25 mg 03/18/19 20:14 Benadryl IVP Q6HR PRN Allergy Symptoms Heparin Sodium (Porcine) 5,000 unit 03/18/19 21:00 03/20/19 09:09 Heparin SQ 5,000 unit Q12HR CHRIS Administration Hydromorphone HCl 0.5 mg 03/17/19 14:06 Dilaudid IVP Q3HR PRN Pain Potassium Chloride/Dextrose/Sod Cl 1,000 mls @ 100 mls/hr 03/17/19 10:00 03/20/19 00:44 D5%-1/2ns-Kcl 20 Meq/L Iv Solution IV 100 mls/hr .Q10H CHRIS Administration Ropivacaine 300 mg/ 250 mls @ 0 mls/hr 03/18/19 21:46 03/20/19 00:40 Hydromorphone HCl 5 mg/ Sodium EPIDURAL 4 mls/hr Chloride .Q0M PRN Administration Pain Control Protocol Per Protocol Levofloxacin 500 mg/ IV 100 mls @ 100 mls/hr 03/20/19 09:45 Solution IVPB 03/27/19 09:46 Q24HR CHRIS Metronidazole 500 mg/ IV 100 mls @ 100 mls/hr 03/20/19 12:00 03/20/19 11:56 Solution IVPB 100 mls/hr Q6HR CHRIS Administration Lisinopril 10 mg 03/17/19 21:00 03/19/19 20:37 Zestril PO 10 mg HS CHRIS Administration Meclizine HCl 25 mg 03/19/19 09:15 03/20/19 09:10 Antivert PO 25 mg DAILY CHRIS Administration Metoclopramide HCl 10 mg 03/17/19 09:52 03/20/19 00:53 Reglan IVP 10 mg Q6H PRN Administration Nausea And Vomiting Naloxone HCl 0.2 mg 03/17/19 09:52 Narcan IV Q2M PRN Opioid Reversal Naloxone HCl 0.2 mg 03/18/19 21:46 Narcan IV Q2M PRN Opioid Reversal Ondansetron HCl 4 mg 03/19/19 14:56 03/20/19 04:22 Zofran IVP 4 mg Q6HR PRN Administration Nausea Pantoprazole Sodium 40 mg 03/18/19 09:00 03/20/19 09:09 Protonix IV 40 mg DAILY CHRIS Administration Intake and Output 03/19/19 03/20/19 03/20/19 22:59 06:59 14:59 Other: Voiding Method Indwelling Catheter Indwelling Catheter # Voids 1 03/20/19 06:21 03/20/19 06:21
[2019-03-20] MEDS ORDERED: SODIUM CHLORIDE 0.9% 1,000 ML IV ONE (12:38)
--- NOTE | 2019-03-20 13:53 | P.PN ---
Progress Note - Text Progress Note Date: 03/20/19 Headache, dizziness, nausea improved since removal of epidural. Will use IV Tylenol with her intolerance to narcotics.
[2019-03-20] MEDS: LEVOFLOXACIN 500MG-D5W PMX 500 MG in DEXTROSE/WATER 1 100ML.BAG IVPB SCH (14:26)
[2019-03-20] MEDS: ACETAMINOPHEN IV (For NPO) 1,000 MG in EMPTY BAG 1 BAG IVPB SCH ×2 (15:29→21:12)
[2019-03-20] MEDS: LISINOPRIL 10 MG TAB PO SCH (21:13)
[2019-03-21] MEDS: DEXAMETHASONE SOD PHOSPHATE 4 MG/ML 1 ML VIAL IV SCH ×4 (01:53→20:48)
[2019-03-21] MEDS: metroNIDAZOLE-NS PMX 500 MG in SALINE 1 100ML.BAG IVPB SCH ×4 (01:53→20:49)
[2019-03-21] MEDS: ACETAMINOPHEN IV (For NPO) 1,000 MG in EMPTY BAG 1 BAG IVPB SCH ×2 (02:42→09:08)
[2019-03-21 06:52] LABS: Basophils % (A) 0 %; Eosinophils # (A) 0.1 k/uL (0-0.7); Eosinophils % (A) 1 %; HCT 38.4 % (34.0-46.0); HGB 12.8 gm/dL (11.4-16.0); Lymphocytes # (A) 0.9 k/uL (1.0-4.8); Lymphocytes % (A) 8 %; MCH 31.7 pg (25.0-35.0); MCHC 33.3 g/dL (31.0-37.0); MCV 95.1 fL (80.0-100.0); Mean Platelet Volume 8.1; Monocytes # (A) 0.5 k/uL (0-1.0); Monocytes % (A) 5 %; Neutrophils % (A) 86 %; Platelet Count 181 k/uL (150-450); RBC 4.04 m/uL (3.80-5.40); RDW 12.2 % (11.5-15.5); WBC 11.6 k/uL (3.8-10.6)
[2019-03-21 07:06] LABS: African American GFR (CKD) >90 (>60 ml/min/1.73 sqM); Anion Gap 2 mmol/L; Blood Urea Nitrogen 15 mg/dL (7-17); Calcium 8.8 mg/dL (8.4-10.2); Carbon Dioxide 27 mmol/L (22-30); Chloride 111 mmol/L (98-107); Glucose 112 mg/dL (74-99); Magnesium 2.1 mg/dL (1.6-2.3); Non-African American GFR(CKD) 81 (>60 ml/min/1.73 sqM); Phosphorus 2.4 mg/dL (2.5-4.5); Potassium 4.4 mmol/L (3.5-5.1); Sodium 140 mmol/L (137-145)
[2019-03-21] MEDS: ALVIMOPAN 12 MG CAPSULE PO SCH ×2 (08:19→20:49)
[2019-03-21] MEDS: HEPARIN SODIUM,PORCINE 5,000 UNIT/ML 1 ML VIAL SQ SCH ×2 (08:19→20:48)
[2019-03-21] MEDS: PANTOPRAZOLE 40 MG/10 ML VIAL IV SCH (08:20)
[2019-03-21] MEDS: MECLIZINE 25 MG TAB PO SCH (08:20)
[2019-03-21] MEDS: LEVOFLOXACIN 500MG-D5W PMX 500 MG in DEXTROSE/WATER 1 100ML.BAG IVPB SCH (09:29)
[2019-03-21] MEDS: D5-0.45% NACL WITH KCL 20MEQ/L 1,000 ML IV SCH (09:29)
--- NOTE | 2019-03-21 12:00 | ECHOF ---
Referral Reason:dizziness, bradycardia MEASUREMENTS -------- HEIGHT: 160.0 cm WEIGHT: 73.9 kg BP: 158/73 IVSd: 1.0 cm (0.6 - 1.1) LVIDd: 4.0 cm (3.9 - 5.3) LVPWd: 0.9 cm (0.6 - 1.1) IVSs: 1.3 cm LVIDs: 1.8 cm LVPWs: 1.6 cm LAESV Index (A-L): 23.75 ml/m Ao Diam: 2.8 cm (2.0 - 3.7) LA Diam: 2.8 cm (2.7 - 3.8) AV Cusp: 1.8 cm (1.5 - 2.6) EPSS: 0.6 cm MV E Vasu: 1.07 m/s MV DecT: 209 ms MV A Vasu: 0.70 m/s MV E/A Ratio: 1.52 AR PHT: 327 ms RAP: 5.00 mmHg RVSP: 39.79 mmHg MV EF SLOPE: 168.37 mm/s (70 - 150) MV EXCURSION: 16.31 mm (> 18.000) TAPSE: 31.58 mm FINDINGS -------- Sinus rhythm. This was a technically good study. The left ventricular size is normal. There is mild concentric left ventricular hypertrophy. Overa ll left ventricular systolic function is normal with, an EF between 55 - 60 %. The right ventricle is normal in size. The right ventricular systolic function is normal. The left atrial size is normal. Normal LA size by volume 22+/-6 ml/m2. The right atrial size is normal. The aortic valve is trileaflet and appears structurally normal. Trace amount of aortic regurgitatio n. The mitral valve is normal. Moderate mitral regurgitation is present. The tricuspid valve appears structurally normal. Mild tricuspid regurgitation present. Right vent ricular systolic pressure is normal at < 35 mmHg. There is no pulmonic regurgitation present. The aortic root size is normal. Normal inferior vena cava with normal inspiratory collapse consistent with estimated right atrial pre ssure of 5 mmHg. There is no pericardial effusion. CONCLUSIONS -------- 1. Sinus rhythm. 2. This was a technically good study. 3. The left ventricular size is normal. 4. There is mild concentric left ventricular hypertrophy. 5. Overall left ventricular systolic function is normal with, an EF between 55 - 60 %. 6. The right ventricle is normal in size. 7. The right ventricular systolic function is normal. 8. The left atrial size is normal. 9. Normal LA size by volume 22+/-6 ml/m2. 10. The right atrial size is normal. 11. The aortic valve is trileaflet and appears structurally normal. 12. Trace amount of aortic regurgitation. 13. The mitral valve is normal. 14. Moderate mitral regurgitation is present. 15. The tricuspid valve appears structurally normal. 16. Mild tricuspid regurgitation present. 17. Right ventricular systolic pressure is normal at < 35 mmHg. 18. There is no pulmonic regurgitation present. 19. The aortic root size is normal. 20. Normal inferior vena cava with normal inspiratory collapse consistent with estimated right atrial pressure of 5 mmHg. 21. There is no pericardial effusion. LABOR SERVICE REPRESENTATIVE: Nathalie Martinez RDCS
--- NOTE | 2019-03-21 12:04 | P.PN ---
<Michelle Wagner Kim - Last Filed: 03/21/19 12:00> Subjective Progress Note Date: 03/21/19 CHIEF COMPLAINT: Cecal volvulus HISTORY OF PRESENT ILLNESS: Patient is status post robotic lysis of adhesions and extended right hemicolectomy performed on 03/18/2019. Patient examined this morning at the bedside. Patient reports her dizziness has improved. She has not been out of bed yet this morning. She is tolerating ice chips. She denies passing flatus or bowel movement. Denies nausea or vomiting. WBC 11.6. Hemoglobin 12.8. Potassium 4.4. Magnesium 2.1. PHYSICAL EXAM: VITAL SIGNS: Reviewed GENERAL: Well-developed in no acute distress. HEENT: No sclera icterus. Extraocular movements grossly intact. Moist buccal mucosa. Head is atraumatic, normocephalic. Hears conversational speech. No nasal drainage. NECK: Supple without lymphadenopathy. CHEST: Non-labored respirations and equal bilateral excursions. CARDIOVASCULAR: Regular rate with regular rhythm. Palpable 2+ radial pulses. ABDOMEN: Soft. Nondistended. Surgical site clean dry and intact without drainage. MUSCULOSKELETAL: No clubbing, cyanosis or edema. NEUROLOGIC: No focal or lateralizing signs. Cranial nerves II through XII grossly intact. PSYCH: Appropriate affect. Alert and oriented to person, place and time. SKIN: Well perfused. Good skin turgor. ASSESSMENT: 1. Cecal volvulus, status post robotic lysis of adhesions and extended right h emicolectomy PLAN: 1. Continue ice chips and popsicles until patient begins passing flatus 2. Discontinue [place] catheter 3. Pain control. Continue Tylenol as needed 4. Incentive spirometry 5. Activity as tolerated 6. Cardiology following. Echo ordered. Await results. Nurse practitioner note has been reviewed by physician. Signing provider agrees with the documented findings, assessment, and plan of care. Objective - Vital Signs Vital signs: Vital Signs Temp 98.4 F 03/21/19 07:00 Pulse 62 03/21/19 07:00 Resp 12 03/21/19 07:00 BP 156/72 03/21/19 07:00 Pulse Ox 95 03/21/19 07:00 Intake & Output 03/20/19 03/21/19 03/21/19 18:59 06:59 18:59 Intake Total 1150 Output Total 2400 300 Balance -1250 -300 Intake: Intake, IV Titration 1100 Amount D5-0.45% NaCl with KCl 900 20Meq/l 1,000 ml @ 100 mls/hr IV .Q10H CHRIS Rx#: [id number] metroNIDAZOLE-NS PMX 500 200 mg In Saline 1 100ml.bag @ 100 mls/hr IVPB Q6H CHRIS Rx#:[id number] Oral 50 Output: Urine 2400 300 Other: Voiding Method Indwelling Catheter Indwelling Catheter # Voids 1 - Labs CBC & Chem 7: 03/21/19 06:39 03/21/19 06:39 Labs: Abnormal Lab Results - Last 24 Hours (Table) 03/21/19 03/21/19 Range/Units 06:39 06:39 WBC 11.6 H (3.8-10.6) k/uL Neutrophils # 10.0 H (1.3-7.7) k/uL Lymphocytes # 0.9 L (1.0-4.8) k/uL Chloride 111 H (98-107) mmol/L Glucose 112 H (74-99) mg/dL Phosphorus 2.4 L (2.5-4.5) mg/dL <Emma Godwin N - Last Filed: 03/23/19 08:01> Subjective Patient still reported a mild headache. Since discontinuing epidural, dizziness, nausea and headache improved. Recommend Imitrex and Fioricet for headache. Patient reports passage of flatus later this afternoon. Objective - Vital Signs Vital signs: Vital Signs Temp 98.1 F 03/22/19 07:00 Pulse 57 L 03/22/19 08:06 Resp 12 03/22/19 07:00 BP 165/72 03/22/19 07:00 Pulse Ox 97 03/22/19 07:00 Intake & Output 03/22/19 03/23/19 03/23/19 18:59 06:59 18:59 Weight 73.936 kg Other: Voiding Method Toilet - Labs CBC & Chem 7: 03/22/19 06:26 03/22/19 06:26 Labs: Abnormal Lab Results - Last 24 Hours (Table) 03/22/19 Range/Units 06:26 Chloride 108 H (98-107) mmol/L Glucose 129 H (74-99) mg/dL
[2019-03-21] MEDS ORDERED: SUMAtriptan SUCCINATE 6 MG/0.5 ML VIAL SQ STA (15:00)
[2019-03-21] MEDS: LISINOPRIL 10 MG TAB PO SCH (20:49)
[2019-03-22] MEDS: metroNIDAZOLE-NS PMX 500 MG in SALINE 1 100ML.BAG IVPB SCH ×3 (01:38→13:24)
[2019-03-22] MEDS: DEXAMETHASONE SOD PHOSPHATE 4 MG/ML 1 ML VIAL IV SCH ×3 (01:38→07:55)
[2019-03-22] MEDS: D5-0.45% NACL WITH KCL 20MEQ/L 1,000 ML IV SCH ×2 (01:41→07:54)
[2019-03-22 07:00] LABS: Basophils % (A) 0 %; Eosinophils % (A) 0 %; HCT 39.4 % (34.0-46.0); HGB 13.2 gm/dL (11.4-16.0); Lymphocytes # (A) 0.9 k/uL (1.0-4.8); Lymphocytes % (A) 9 %; MCH 32.1 pg (25.0-35.0); MCHC 33.6 g/dL (31.0-37.0); MCV 95.4 fL (80.0-100.0); Mean Platelet Volume 7.7; Monocytes # (A) 0.4 k/uL (0-1.0); Monocytes % (A) 4 %; Neutrophils % (A) 86 %; Platelet Count 192 k/uL (150-450); RBC 4.13 m/uL (3.80-5.40); WBC 9.3 k/uL (3.8-10.6)
[2019-03-22 07:45] VITALS: BP 165/72; RESP 12; TEMP 98.1
[2019-03-22] MEDS: MECLIZINE 25 MG TAB PO SCH (07:54)
[2019-03-22] MEDS: HEPARIN SODIUM,PORCINE 5,000 UNIT/ML 1 ML VIAL SQ SCH (07:55)
[2019-03-22] MEDS: ALVIMOPAN 12 MG CAPSULE PO SCH (07:55)
[2019-03-22] MEDS: PANTOPRAZOLE 40 MG/10 ML VIAL IV SCH (07:55)
[2019-03-22 08:07] VITALS: PULSE 57
[2019-03-22 09:14] LABS: African American GFR (CKD) >90 (>60 ml/min/1.73 sqM); Anion Gap 4 mmol/L; Blood Urea Nitrogen 14 mg/dL (7-17); Carbon Dioxide 29 mmol/L (22-30); Chloride 108 mmol/L (98-107); Glucose 129 mg/dL (74-99); Non-African American GFR(CKD) 88 (>60 ml/min/1.73 sqM); Potassium 4.2 mmol/L (3.5-5.1); Sodium 141 mmol/L (137-145)
[2019-03-22] MEDS: LEVOFLOXACIN 500MG-D5W PMX 500 MG in DEXTROSE/WATER 1 100ML.BAG IVPB SCH (09:28)
[2019-03-22 09:47] VITALS: BMI 28.8
--- NOTE | 2019-03-22 13:10 | P.DS ---
<Michelle Wagner - Last Filed: 03/22/19 13:09> Providers Expected date of discharge: 03/22/19 Hospital Course: 73-year-old female with history of cecal volvulus who underwent robotic lysis of adhesions and extended right hemicolectomy performed on 03/18/[address] Godwin. Patient is doing well postoperatively without any immediate complications. She is tolerating diet and having bowel movements. Pain is controlled with oral medications. Her vital signs have been stable. She is stable for discharge home today. Please see EMR for the hospital course details. Discharge Diagnosis: 1. Cecal volvulus, status post robotic lysis of adhesions and extended right hemicolectomy Nurse practitioner note has been reviewed by physician. Signing provider agrees with the documented findings, assessment, and plan of care. Patient Condition at Discharge: Stable Plan - Discharge Summary Discharge Rx Participant: Yes New Discharge Prescriptions: New Acetaminophen Tab [Tylenol Tab] 650 mg PO Q4H PRN #30 tablet PRN Reason: Pain No Action Simvastatin [Zocor] 40 mg PO HS Lisinopril [Zestril] 10 mg PO HS Aspirin [Adult Low Dose Aspirin EC] 81 mg PO DAILY Omeprazole [PriLOSEC] 20 mg PO DAILY L.acidoph,Paracasei, B.lactis [Probiotic] 1 each PO DAILY Discharge Medication List Aspirin [Adult Low Dose Aspirin EC] 81 mg PO DAILY 04/22/17 [History] Lisinopril [Zestril] 10 mg PO HS 04/22/17 [History] Omeprazole [PriLOSEC] 20 mg PO DAILY 04/22/17 [History] Simvastatin [Zocor] 40 mg PO HS 04/22/17 [History] L.acidoph,Paracasei, B.lactis [Probiotic] 1 each PO DAILY 10/25/18 [History] Acetaminophen Tab [Tylenol Tab] 650 mg PO Q4H PRN #30 tablet 03/22/19 [Rx] Follow up Appointment(s)/Referral(s): Emma Godwin MD [STAFF PHYSICIAN] - 03/29/19 11:00 am Gareth Strickland MD [STAFF PHYSICIAN] - 04/05/19 12:45 pm Patient Instructions/Handouts: *Surgery [facility] - (Anesthesia) Endoscopy Discharge Instructions, Bowel Obstruction (DC), Colonoscopy (DC) Activity/Diet/Wound Care/Special Instructions: Tylenol as needed for pain No lifting over 10 pounds You may shower. No soaking or tub baths Very light activity until you are reevaluated at your follow up appointment with your surgeon Soft diet Discharge Disposition: HOME SELF-CARE <Emma Godwin - Last Filed: 03/23/19 08:03> Providers Date of admission: 03/18/19 10:00 Attending physician: Emma Godwin Consults: 03/19/19 14:56 Consult Physician Routine Consulting Provider: Gareth Strickland Consult Reason/Comments: Symptomatic bradycardia Do you want consulting provider notified?: Yes, Notify in am Primary care physician: Omid Vasquez Hospital Course: Patient had cardiology consultation for transient bradycardia. Echo demonstrates normal findings. Patient was tolerating diet, passing flatus, having bowel movement. WBC improved. Recommend continuing antibiotics for home. Colectomy advised, low fiber.
--- NOTE | 2019-03-30 13:07 | CDI ---
Documentation Clarification Form Date: 03/30/19 From: Consuelo Bonilla Phone: If you have a question about this query, please contact Elissa Edmond, Blogs Manager at [phone] between 8am and 5pm. Admit Date: 03/18/19 Discharge Date: 03/22/19 Patient Name: Kristie Yoon Visit Number: [id number] ATTENTION: The Clinical Documentation Specialists (CDI) and [facility] Coding Staff appreciate your assistance in clarifying documentation. Please respond to the clarification below the line at the bottom and electronically sign. The CDI & [facility] Coding staff will review the response and follow-up if needed. Please note: Queries are made part of the Legal Health Record. If you have any questions, please contact the author of this message via ITS. Dear Conflicting documentation has been found in the medical record: The diagnosis spinal headache was documented in your 03/20 progress note. Per the same progress note patient was having a migraine headache on admission. History/Risk Factors: volvulus, chronic constipation, hyperlipidemia, colon polyp Clinical Indicators: 03/20 PN She has persistent dizziness including nausea and headache. She reports headache which was pre-exiting to her surgery however more prominent since surgery. She normally doesn't take anything for her headache. Treatment: Discontinuing epidural, Fioricet and Imitrex started In your opinion, what is the most clinically appropriate diagnosis for this patient? Headache due to migraine Spinal Headache from spinal and lumbar puncture Headache due migraine and spinal and lumbar puncture Other explanation of clinical findings Unable to determine (no explanation for clinical findings) Headache due migraine and spinal and lumbar puncture 03/31/19 @17:16 NUNO
== END 2019-03-22 14:23 | disposition home or self-care (01) | DRG 330 ==
LOC: ORWHC2ENDO 08:37 → 4SSUR 10:47 → ORWHC2ENDO 03-18 09:59 → 4SSUR 03-18 10:00 → ORWHC2ENDO 03-19 01:24
PROVIDERS: ADMIT Surgery Plastic and Reconstructive Surgery; ATTEND Surgery Plastic and Reconstructive Surgery
PROC: 0DJD8ZZ Inspection of Lower Intestinal Tract, Via Natural or Artificial Opening Endoscopic (ICD-10-PCS; principal; 2019-03-17 09:00)
PROC: 0DTF4ZZ Resection of Right Large Intestine, Percutaneous Endoscopic Approach (ICD-10-PCS; 2019-03-18)
PROC: 0DN84ZZ Release Small Intestine, Percutaneous Endoscopic Approach (ICD-10-PCS; 2019-03-18)
PROC: 0DNW4ZZ Release Peritoneum, Percutaneous Endoscopic Approach (ICD-10-PCS; 2019-03-18)
PROC: 8E0W4CZ Robotic Assisted Procedure of Trunk Region, Percutaneous Endoscopic Approach (ICD-10-PCS; 2019-03-18)
DX: K56.2 Volvulus (principal); K57.32 Diverticulitis of large intestine without perforation or abscess without bleeding; Q43.8 Other specified congenital malformations of intestine; R16.0 Hepatomegaly, not elsewhere classified; R00.1 Bradycardia, unspecified; I11.9 Hypertensive heart disease without heart failure; K66.0 Peritoneal adhesions (postprocedural) (postinfection); G43.909 Migraine, unspecified, not intractable, without status migrainosus; K59.09 Other constipation; E78.5 Hyperlipidemia, unspecified; K63.5 Polyp of colon; K64.8 Other hemorrhoids; K21.9 Gastro-esophageal reflux disease without esophagitis; Z79.82 Long term (current) use of aspirin; Z79.899 Other long term (current) drug therapy; Z90.49 Acquired absence of other specified parts of digestive tract; Z86.73 Personal history of transient ischemic attack (TIA), and cerebral infarction without residual deficits; Z87.19 Personal history of other diseases of the digestive system; Z90.12 Acquired absence of left breast and nipple; Z98.890 Other specified postprocedural states; Z87.828 Personal history of other (healed) physical injury and trauma; Z83.2 Family history of diseases of the blood and blood-forming organs and certain disorders involving the immune mechanism; Z88.5 Allergy status to narcotic agent; Z88.0 Allergy status to penicillin; Z91.040 Latex allergy status
CPT/HCPCS: 45378; 80048; 80053; 83735; 84100; 84443; 84484; 85025; 86850; 86900; 86901; 88307; 93005; 93306

== ENCOUNTER 2023-07-17 08:48 | Day surgery (SDC) | payer MEDICARE ==
--- NOTE | 2023-07-17 07:00 | P.GSHP ---
History of Present Illness H&P Date: 07/17/23 CHIEF COMPLAINT: Breast cancer HISTORY OF PRESENT ILLNESS: The patient is a 77-year-old female diagnosed with lymphoma in the last 2 months. She needs a Mediport placement for chemotherapy. PAST MEDICAL HISTORY: See list and reviewed PAST SURGICAL HISTORY: See list and reviewed CURRENT MEDICATIONS: See list and reviewed ALLERGIES: See list and reviewed SOCIAL HISTORY: See list and reviewed FAMILY HISTORY: See list and reviewed REVIEW OF ORGAN SYSTEMS: CONSTITUTIONAL: No fevers or chills RESPIRATORY: No pneumonia. No dyspnea on exertion. CARDIOVASCULAR: No recent chest pain. No history of blood clots PHYSICAL EXAMINATION: Vital signs: Stable GENERAL: Well developed and in no acute distress. Pleasant. HEENT: No sclera icterus. Extraocular movements grossly intact. Moist buccal mucosa. Head is atraumatic, normocephalic. Hears conversational speech. No nasal drainage. NECK: Supple without lymphadenopathy. No JV distention. CHEST: Non-labored respirations and equal bilateral excursions. CARDIOVASCULAR: Regular rate and rhythm. Palpable 2+ radial pulses. ABDOMEN: Nontender. MUSCULOSKELETAL: No clubbing, cyanosis or edema. NEUROLOGIC: No focal or lateralizing signs. PSYCH: Appropriate affect. Alert and oriented to person, place and time. ASSESSMENT: 1. Lymphoma 2. Need for chemotherapeutic access. PLAN: 1. Port-A-Cath placement for chemotherapy access Past Medical History Past Medical History: CVA/TIA, GERD/Reflux, Hyperlipidemia, Hypertension Additional Past Medical History / Comment(s): TIA 2012- no residual effects, diverticulitis, hx colon polyps, rectal bleeding, constipation, developed some type of blood clot in abdomen after bowel resection in 2018, B cell lymphoma - has not started chemo. yet History of Any Multi-Drug Resistant Organisms: None Reported Past Surgical History: Bowel Resection, Breast Surgery, Orthopedic Surgery Additional Past Surgical History / Comment(s): left foot bunionectomy, left breast lumpectomy-benign, colonoscopy, bowel resection x 2 Past Anesthesia/Blood Transfusion Reactions: Motion Sickness, Postoperative Nausea & Vomiting (PONV) Smoking Status: Never smoker - Past Family History Mother Family Medical History: Deep Vein Thrombosis (DVT) Additional Family Medical History / Comment(s): age 44 Father Family Medical History: Renal Disease Additional Family Medical History / Comment(s): age 59 Medications and Allergies Home Medications Medication Instructions Recorded Confirmed Type Aspirin [Adult Low Dose Aspirin EC] 81 mg PO DAILY 04/22/17 07/15/23 History Omeprazole [PriLOSEC] 20 mg PO DAILY PRN 04/22/17 07/15/23 History Simvastatin [Zocor] 40 mg PO HS 04/22/17 07/15/23 History lisinopriL [Zestril] 10 mg PO HS 04/22/17 07/15/23 History L.acidoph,Paracasei, B.lactis 1 each PO DAILY 10/25/18 07/15/23 History [Probiotic] Acetaminophen Tab [Tylenol Tab] 650 mg PO Q4H PRN #30 tablet 03/22/19 07/15/23 Rx Ergocalciferol [Vitamin D2 (1250 1,250 mcg PO WEEKLY 07/15/23 07/15/23 History Mcg = [id number] Iu)] allopurinoL 400 mg PO BID 07/15/23 07/15/23 History Allergies Allergy/AdvReac Type Severity Reaction Status Date / Time amoxicillin Allergy Rash/Hives Verified 07/15/23 09:39 codeine Allergy Hallucinati Verified 07/15/23 09:39 ons hydrocodone [From [place]] Allergy Nausea Verified 07/15/23 09:39 latex Allergy Itching Verified 07/15/23 09:39 Penicillins Allergy Rash/Hives Verified 07/15/23 09:39
[~2023-07-17 08:48] MED LIST changes: +LIDOCAINE 1% (10MG/ML) FOR IV START INTRADERMA PRN; -ONDANSETRON 4 MG/2 ML VIAL IVP PRN; +Pre Op ABX Message 1 EACH MISC MISCELLANE ONE
[2023-07-17] MEDS: LACTATED RINGERS 1,000 ML IV SCH (09:44)
[2023-07-17] MEDS: ACETAMINOPHEN TAB 500 MG TAB PO PRN (09:50)
[2023-07-17] MEDS: HEPARIN SODIUM,PORCINE 5,000 UNIT/ML 1 ML VIAL SQ PRN (09:51)
[2023-07-17] MEDS: DEXAMETHASONE SOD PHOSPHATE 4 MG/ML 1 ML VIAL IVP ONE (09:52)
[2023-07-17] MEDS: ONDANSETRON 4 MG/2 ML VIAL IVP PRN (09:52)
[2023-07-17] MEDS ORDERED: PHENYLEPHRINE 10 MG/ML VIAL ONE (10:52)
[2023-07-17] MEDS ORDERED: PROPOFOL 10 MG/ML 20 ML VIAL IV ONE (10:52)
[2023-07-17] MEDS ORDERED: LIDOCAINE 1% INJ 10MG/ML (20 ML MDV) ONE (10:52)
[2023-07-17] MEDS ORDERED: MIDAZOLAM 2 MG/2 ML VIAL ONE (10:52)
[2023-07-17] MEDS ORDERED: fentaNYL (PF) 50 MCG/ML 2 ML AMP ONE (10:52)
[2023-07-17] MEDS: LIDOCAINE 1% INJ 10MG/ML (20 ML MDV) SQ ONE (10:57)
[2023-07-17] MEDS: ceFAZolin 1,000 MG VIAL IVPB ONE (11:25)
[2023-07-17 12:21] VITALS: TEMP 97
--- NOTE | 2023-07-17 12:27 | FL ---
Fluoroscopy History: PORTACATH INSERTION port a cath insertion 1 sec fl .0223 DAP
--- NOTE | 2023-07-17 12:40 | P.OP ---
Date of Procedure: 07/17/23 Description of Procedure: SURGEON: EMMA GODWIN MD ROBOTICS SOFTWARE ENGINEER: None. PREOPERATIVE DIAGNOSES: 1. 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 Need for chemotherapeutic access. 3. Hypertensive heart disease 4. Gastroesophageal reflux disease 5. Hyperlipidemia 6. Gout POSTOPERATIVE DIAGNOSES: 1. 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 Need for chemotherapeutic access. 3. Hypertensive heart disease 4. Gastroesophageal reflux disease 5. Hyperlipidemia 6. Gout PROCEDURES PERFORMED: 1. Ultrasound guided central venous access of the right internal jugular venous vein. 2. Fluoroscopic guidance for central venous access right internal jugular vein less than 1 seconds. 3. Placement of right internal jugular power port 6 [place] by [place], Xcela Plus Port ANESTHESIA: LMA sedation with local. ESTIMATED BLOOD LOSS: 5 mL. SPECIMENS REMOVED: None. COMPLICATIONS: None. FINDINGS: 1. No thrombus encountered along the right carotid artery or internal jugular vein. 2. Access of the right internal jugular vein under ultrasound guidance. 3. Fluoroscopy of less than 1 seconds. INDICATIONS: The patient is a 77-year-old female recently diagnosed with follicular lymphoma of the retroperitoneum. She presents for chemotherapeutic access. Benefits and risks of surgical intervention were described including bleeding, infection, mechanical problems with his port. Informed consent was obtained. DESCRIPTION OR PROCEDURE: Patient was brought into the operating room, laid in supine position. After adequate IV sedation, the chest and right neck were prepped and draped in a standard sterile fashion including the shoulder with ChloraPrep. Timeout protocol was confirmed with the surgical team regarding the patient's name, procedure to be performed including preoperative medications for which she received IV antibiotics. Bilateral SCDs were placed. An ultrasound was used to capture views of the right internal jugular vein including right carotid artery, which was patent and without thrombus along its course. The right IJ was then localized using anesthetic for the skin. A 16 Cambodian needle was used to access the IJ. A guidewire was advanced into the IJ with dark nonpulsatile venous blood. Two fingerbreadths distal to the clavicle, on the lateral third, a transverse 1.5 to 2 cm incision was deepened into the skin after localizing the skin. A pocket was created for the port. The port on the back table was flushed with heparinized saline and then attached to the catheter tubing. An adapter was fastened to the actual port site over the tubing. The port easily had fit snug into the pocket. A subcutaneous tunneler was placed along the open end of the tubing and brought out through the separate stab incision. Fluoroscopic guidance confirmed no kinking along the tubing and the port site. Next, the J-wire was exchanged for a catheter sheath for which the tubing was cut to 23 cm and then advanced through the catheter sheath. The Peel-away sheath was then removed and the tubing was secured at the junction of the superior vena cava as well as the right atrium. The tubing was found to be crossed however functional. This was all done under fluoroscopic guidance under 1 seconds. Easy pullback as well as return and aspiration was obtained of the port site. The skin incision was closed using layers using 3-0 Vicryl for the subcu followed by 4-0 Monocryl in a running subcuticular fashion. At the stick site this was also reapproximated using 4-0 Monocryl. The incisions were covered with Optifoam, The skin was cleansed and Exofin liquid glue was applied. Optifoam dressing was placed over the port site. A total of 30 mL of local anesthetic was placed. At the end of the procedure, needle, sponge, and instrument count was verified correct by surgical services assistant. Heparin lock of 5 mL was placed. The patient was awoken and pain free and taken to the second stage postanesthesia care unit. The patient tolerated the procedure well. Plan - Discharge Summary New Discharge Prescriptions: Continue Simvastatin [Zocor] 40 mg PO HS lisinopriL [Zestril] 10 mg PO HS Aspirin [Adult Low Dose Aspirin EC] 81 mg PO DAILY Omeprazole [PriLOSEC] 20 mg PO DAILY PRN PRN Reason: Heartburn L.acidoph,Paracasei, B.lactis [Probiotic] 1 each PO DAILY Acetaminophen Tab [Tylenol] 650 mg PO Q4H PRN #30 tablet PRN Reason: Pain allopurinoL 400 mg PO BID Ergocalciferol [Vitamin D2 (1250 Mcg = 83303 Iu)] 1,250 mcg PO WEEKLY Discharge Medication List Aspirin [Adult Low Dose Aspirin EC] 81 mg PO DAILY 04/22/17 [History] Omeprazole [PriLOSEC] 20 mg PO DAILY PRN 04/22/17 [History] Simvastatin [Zocor] 40 mg PO HS 04/22/17 [History] lisinopriL [Zestril] 10 mg PO HS 04/22/17 [History] L.acidoph,Paracasei, B.lactis [Probiotic] 1 each PO DAILY 10/25/18 [History] Acetaminophen Tab [Tylenol] 650 mg PO Q4H PRN #30 tablet 03/22/19 [Rx] Ergocalciferol [Vitamin D2 (1250 Mcg = 55483 Iu)] 1,250 mcg PO WEEKLY 07/15/23 [History] allopurinoL 400 mg PO BID 07/15/23 [History] Follow up Appointment(s)/Referral(s): Emma Godwin MD [STAFF PHYSICIAN] - As Needed Patient Instructions/Handouts: Implanted Venous Access Port (GEN), How to Care for Your Implanted Venous Access Port (GEN) Activity/Diet/Wound Care/Special Instructions: Remove dressing no later than July 23September shower. No bathtub soaks for 2 weeks, July 30 No wide motions of the right arm to prevent dislodge of your port for 3 weeks. EXPECT BRUISING AND SLEEP WITH 2 TO 3 PILLOWS. BRUISING RESOLVES IN 2 TO 3 WEEKS. Take Tylenol, Aleve or ibuprofen for pain as needed Discharge Disposition: HOME SELF-CARE
[2023-07-17 12:55] VITALS: PULSE 63
--- NOTE | 2023-07-17 12:56 | XR ---
EXAMINATION TYPE: XR chest 1V confirm line [facility] DATE OF EXAM: 07/17/2023 HISTORY: Shortness of breath. COMPARISON: 10/29/2017 TECHNIQUE: Single view of the chest is submitted. FINDINGS: Demonstrated are scattered senescent parenchymal change. There is no evidence for focal infiltrate. MediPort catheter distal tip overlying the SVC. No evidence for pneumothorax. The heart is stable. Hilar and mediastinal structures are within normal limits. Degenerative changes are seen of the dorsal spine. IMPRESSION: 1. Chronic changes without evidence for acute pulmonary disease.
[2023-07-17 13:28] VITALS: BP 146/72; RESP 20
== END 2023-07-17 14:15 | disposition home or self-care (01) ==
LOC: OR 08:48
PROVIDERS: ATTEND Surgery Plastic and Reconstructive Surgery
DX: Z45.2 Encounter for adjustment and management of vascular access device (principal); K21.9 Gastro-esophageal reflux disease without esophagitis; M10.9 Gout, unspecified; I11.9 Hypertensive heart disease without heart failure; E78.5 Hyperlipidemia, unspecified; C82.90 Follicular lymphoma, unspecified, unspecified site; Z79.82 Long term (current) use of aspirin; Z86.73 Personal history of transient ischemic attack (TIA), and cerebral infarction without residual deficits; Z88.0 Allergy status to penicillin; Z88.5 Allergy status to narcotic agent; Z91.040 Latex allergy status; Z79.899 Other long term (current) drug therapy; Z88.8 Allergy status to other drugs, medicaments and biological substances
CPT/HCPCS: 77001; 36561; C1788; J2250; J1644; J1100; J2405; J0690; J2001; J3010; J1642; J2704; J2371

== ENCOUNTER 2023-10-28 10:46 | Emergency (ER) | payer MEDICARE ==
--- NOTE | 2023-10-28 11:13 | ED ---
Recheck HPI - General Source: patient, RN notes reviewed Mode of arrival: ambulatory Limitations: no limitations - History of Present Illness Complaint: abnormal lab <Rena Marvin - Last Filed: 10/29/23 06:21> <Leyda Krishnamurthy - Last Filed: 11/06/23 07:58> - General Chief Complaint: Recheck/Abnormal Lab/Rx Stated Complaint: Abn Labs Time Seen by Provider: 10/28/23 10:55 - History of Present Illness Initial Comments: This is a 78-year-old female who presents to the emergency department for low hemoglobin levels. Currently follows with Dr. Levy, hem/onc, for non-Hodgkin's lymphoma. States that she is being treated with chemotherapy every 21 days. She was supposed to have chemotherapy today, however she had blood work drawn yesterday demonstrating low hemoglobin and it was advised that the chemotherapy would be rescheduled. Believes that the hemoglobin level was about 6.6. Denies any history of low hemoglobin levels in the past. She does note feeling very weak over the last month. Also reports some shortness of breath. She was treated for pneumonia at the end of last month with antibiotics and has continued to have residual shortness of breath. Denies any coughing or chest pain. Denies any blood in her stool or dark/tarry stools. Not taking any blood thinners. Her daughter brought paperwork from Dr. Levy's office stating that she has chemo induced anemia and requests transfusion with 2 units of packed red blood cells. Patient states that the transfusion center upstairs was too full, which is why she had to come to the emergency department for a blood transfusion. (Rena Marvin) - Related Data Home Medications Medication Instructions Recorded Confirmed Aspirin [Adult Low Dose Aspirin EC] 81 mg PO DAILY 04/22/17 07/15/23 Omeprazole [PriLOSEC] 20 mg PO DAILY PRN 04/22/17 07/15/23 Simvastatin [Zocor] 40 mg PO HS 04/22/17 07/15/23 lisinopriL [Zestril] 10 mg PO HS 04/22/17 07/15/23 L.acidoph,Paracasei, B.lactis 1 each PO DAILY 10/25/18 07/15/23 [Probiotic] Ergocalciferol [Vitamin D2 (1250 1,250 mcg PO WEEKLY 07/15/23 07/15/23 Mcg = 47535 Iu)] allopurinoL 400 mg PO BID 07/15/23 07/15/23 Previous Rx's Medication Instructions Recorded Acetaminophen Tab [Tylenol] 650 mg PO Q4H PRN #30 tablet 03/22/19 Allergies Allergy/AdvReac Type Severity Reaction Status Date / Time amoxicillin Allergy Rash/Hives Verified 10/28/23 10:54 codeine Allergy Hallucinati Verified 10/28/23 10:54 ons hydrocodone [From [place]] Allergy Nausea Verified 10/28/23 10:54 latex Allergy Itching Verified 10/28/23 10:54 Penicillins Allergy Rash/Hives Verified 10/28/23 10:54 Review of Systems ROS Other: All systems not noted in ROS Statement are negative. <Rena Marvin - Last Filed: 10/29/23 06:21> ROS Other: All systems not noted in ROS Statement are negative. <Leyda Krishnamurthy - Last Filed: 11/06/23 07:58> ROS Statement: Those systems with pertinent positive or pertinent negative responses have been documented in the HPI. 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 yet History of Any Multi-Drug Resistant Organisms: None Reported Past Surgical History: Bowel Resection, Breast Surgery, Orthopedic Surgery Additional Past Surgical History / Comment(s): left foot bunionectomy, left breast lumpectomy-benign, colonoscopy, bowel resection x 2 Past Anesthesia/Blood Transfusion Reactions: Motion Sickness, Postoperative Nausea & Vomiting (PONV) Past Psychological History: No Psychological Hx Reported Smoking Status: Never smoker Past Alcohol Use History: None Reported Past Drug Use History: None Reported - Past Family History Mother Family Medical History: Deep Vein Thrombosis (DVT) Additional Family Medical History / Comment(s): age 44 Father Family Medical History: Renal Disease Additional Family Medical History / Comment(s): age 59 <Rena Marvin - Last Filed: 06/20/24 06:21> General Exam Limitations: no limitations General appearance: alert, in no apparent distress Head exam: Present: atraumatic, normocephalic, normal inspection Respiratory exam: Present: normal lung sounds bilaterally. Absent: respiratory distress, wheezes, rales, rhonchi, stridor Cardiovascular Exam: Present: regular rate, normal rhythm, normal heart sounds. Absent: systolic murmur, diastolic murmur, rubs, gallop, clicks Neurological exam: Present: alert, oriented X3, CN II-XII intact Psychiatric exam: Present: normal affect, normal mood Skin exam: Present: warm, dry, intact, normal color. Absent: rash <Rena Marvin - Last Filed: 10/29/23 06:21> Course Vital Signs 10/28/23 10/28/23 10/28/23 10:50 13:34 13:48 Temperature 98 F 97.0 F L Pulse Rate 51 L 81 77 Respiratory 18 16 16 Rate Blood Pressure 103/47 109/79 110/59 O2 Sat by Pulse 96 100 98 Oximetry 10/28/23 10/28/23 10/28/23 13:54 14:14 17:12 Temperature 97.7 F 99.1 F 98.4 F Pulse Rate 68 72 64 Respiratory 16 14 16 Rate Blood Pressure 110/49 101/37 105/59 O2 Sat by Pulse 100 99 97 Oximetry 10/28/23 18:40 Temperature 97.7 F Pulse Rate 66 Respiratory 16 Rate Blood Pressure 119/62 O2 Sat by Pulse 98 Oximetry Medical Decision Making - Lab Data Result diagrams: 10/28/23 11:20 10/28/23 11:20 - Radiology Data Radiology results: report reviewed, image reviewed <Rena Marvin - Last Filed: 10/29/23 06:21> - Lab Data Result diagrams: 10/28/23 11:20 10/28/23 11:20 <Leyda Krishnamurthy - Last Filed: 11/06/23 07:58> - Medical Decision Making This is a 78 year old female who presents to the emergency department for low hemoglobin. Was pt. sent in by a medical professional or institution? @ -Dr. Levy Did you speak to anyone other than the patient for history? @ -No Did you review nursing and triage notes? @ -Yes, and I agree, it is accurate with regards to the patient's symptoms. Were old charts reviewed? @ -No Differential Diagnosis? @ -Differential Low Hemoglobin: GI bleed, iron deficiency, medications, CKD, cancer, this is not meant to be an all-inclusive list. EKG interpreted by me (3pts min.)? @ -EKG interpreted by me demonstrating the following: Sinus rhythm. Ventricular rate 67 bpm, HI interval 183 ms, QRS duration 81 ms, QTc 394 ms. X-rays interpreted by me (1pt min.)? @ -Chest x-ray obtained, my interpretation identifies no localized consolidations or infiltrates. CT interpreted by me (1pt min.)? @ -Not obtained U/S interpreted by me (1pt. min.)? @ -Not obtained What testing was considered but not performed? (CT, X-rays, U/S, labs)? Why? @ -None What meds were considered but not given? Why? @ -None Did you discuss the management of the patient with other professionals? @ -No Did you reconcile home meds? @ -No Was smoking cessation discussed for >3mins.? @ -No Was critical care preformed (if so, how long)? @ -No Were there social determinants of health that impacted care today? How? (Homelessness, low income, unemployed, alcoholism, drug addiction, transportation, low edu. Level, literacy, decrease access to med. care, [facility], rehab)? @ -No Was there de-escalation of care discussed even if they declined? (Discuss DNR or withdrawal of care, Hospice)? @ -No What co-morbidities impacted this encounter? (DM, HTN, Smoking, COPD, CAD, Cancer, CVA, Hep., AIDS, mental health diagnosis, sleep apnea, morbid obesity)? @ -Lymphoma Was patient admitted / discharged? @ -Discharged. Lab work demonstrates a hemoglobin of 7.0 which is improved when compared with the reported value of 6.6 yesterday. COVID, influenza, and RSV testing negative. Chest x-ray reveals no acute process. 2 units of PRBCs administered per hem/onc's request. Admission was offered, however patient declined due to this being related to the chemotherapy. States that she just needed the blood transfusion and she will otherwise follow-up with Dr. Levy to proceed with chemotherapy. Following infusion with 2 units of PRBCs, patient was monitored for any potential reactions and then discharged home in stable condition. Undiagnosed new problem with uncertain prognosis? @ -None Drug Therapy requiring intensive monitoring for toxicity (Heparin, Nitro, Insulin, Cardizem)? @ -None Were any procedures done? @ -None Diagnosis/symptom? @ -Chemotherapy-induced anemia Acute, or Chronic, or Acute on Chronic? @ -Acute Uncomplicated (without systemic symptoms) or Complicated (systemic symptoms)? @ -Complicated Side effects of treatment? @ -None Exacerbation, Progression, or Severe Exacerbation] @ -Not applicable Poses a threat to life or bodily function? @ -Yes Return precautions reviewed in depth, the patient is instructed to return to the emergency department with any new, worsening, or concerning symptoms. Patient verbalized understanding. This case was discussed in detail with the attending ED physician, Dr. Krishnamurthy. Presentation, findings, and treatment plan discussed in detail as well. (Rena Marvin) critical care time of 40 minutes for transfusion of blood products (Leyda Krishnamurthy) - Lab Data Lab Results 10/28/23 10/28/23 10/28/23 Range/Units 11:08 11:20 11:20 WBC 4.1 (3.8-10.6) k/uL RBC 2.18 L (3.80-5.40) m/uL Hgb 7.0 L (11.4-16.0) gm/dL Hct 22.4 L (34.0-46.0) % MCV 102.9 H (80.0-100.0) fL MCH 32.0 (25.0-35.0) pg MCHC 31.1 (31.0-37.0) g/dL RDW 17.0 H (11.5-15.5) % Plt Count 372 (150-450) k/uL MPV 8.2 Neutrophils % 76 % Lymphocytes % 12 % Monocytes % 8 % Eosinophils % 0 % Basophils % 1 % Neutrophils # 3.1 (1.3-7.7) k/uL Lymphocytes # 0.5 L (1.0-4.8) k/uL Monocytes # 0.3 (0-1.0) k/uL Eosinophils # 0.0 (0-0.7) k/uL Basophils # 0.0 (0-0.2) k/uL Hypochromasia Slight Poikilocytosis Slight Anisocytosis Slight Macrocytosis Moderate PT 10.6 (10.0-12.5) sec INR 1.0 (<1.2) APTT 24.3 (22.0-30.0) sec Sodium (137-145) mmol/L Potassium (3.5-5.1) mmol/L Chloride (98-107) mmol/L Carbon Dioxide (22-30) mmol/L Anion Gap mmol/L BUN (7-17) mg/dL Creatinine (0.52-1.04) mg/dL Est GFR (CKD-EPI)AfAm (>60 ml/min/1.73 sqM) Est GFR (CKD-EPI)NonAf (>60 ml/min/1.73 sqM) Glucose (74-99) mg/dL Plasma Lactic Acid Nitish (0.7-2.0) mmol/L Calcium (8.4-10.2) mg/dL Total Bilirubin (0.2-1.3) mg/dL AST (14-36) U/L ALT (4-34) U/L Alkaline Phosphatase (38-126) U/L Total Protein (6.3-8.2) g/dL Albumin (3.5-5.0) g/dL Influenza Type A (PCR) Not Detected (Not Detectd) Influenza Type B (PCR) Not Detected (Not Detectd) RSV (PCR) Not Detected (Not Detectd) SARS-CoV-2 (PCR) Not Detected (Not Detectd) Blood Type Blood Type Recheck Bld Type Recheck Status Antibody Screen Crossmatch Spec Expiration Date 10/28/23 10/28/23 10/28/23 Range/Units 11:20 11:20 11:25 WBC (3.8-10.6) k/uL RBC (3.80-5.40) m/uL Hgb (11.4-16.0) gm/dL Hct (34.0-46.0) % MCV (80.0-100.0) fL MCH (25.0-35.0) pg MCHC (31.0-37.0) g/dL RDW (11.5-15.5) % Plt Count (150-450) k/uL MPV Neutrophils % % Lymphocytes % % Monocytes % % Eosinophils % % Basophils % % Neutrophils # (1.3-7.7) k/uL Lymphocytes # (1.0-4.8) k/uL Monocytes # (0-1.0) k/uL Eosinophils # (0-0.7) k/uL Basophils # (0-0.2) k/uL Hypochromasia Poikilocytosis Anisocytosis Macrocytosis PT (10.0-12.5) sec INR (<1.2) APTT (22.0-30.0) sec Sodium 136 L (137-145) mmol/L Potassium 3.7 (3.5-5.1) mmol/L Chloride 107 (98-107) mmol/L Carbon Dioxide 26 (22-30) mmol/L Anion Gap 3 mmol/L BUN 8 (7-17) mg/dL Creatinine 0.59 (0.52-1.04) mg/dL Est GFR (CKD-EPI)AfAm >90 (>60 ml/min/1.73 sqM) Est GFR (CKD-EPI)NonAf 89 (>60 ml/min/1.73 sqM) Glucose 87 (74-99) mg/dL Plasma Lactic Acid Nitish 0.7 (0.7-2.0) mmol/L Calcium 8.5 (8.4-10.2) mg/dL Total Bilirubin 0.5 (0.2-1.3) mg/dL AST 26 (14-36) U/L ALT 11 (4-34) U/L Alkaline Phosphatase 78 (38-126) U/L Total Protein 4.9 L (6.3-8.2) g/dL Albumin 2.8 L (3.5-5.0) g/dL Influenza Type A (PCR) (Not Detectd) Influenza Type B (PCR) (Not Detectd) RSV (PCR) (Not Detectd) SARS-CoV-2 (PCR) (Not Detectd) Blood Type O Positive Blood Type Recheck O Pos Bld Type Recheck Status No Antibody Screen NEGATIVE Crossmatch See Detail Spec Expiration Date 10/31/20232319 Disposition Is patient prescribed a controlled substance at d/c from ED?: No <Rena Marvin - Last Filed: 10/29/23 06:21> <Leyda Krishnamurthy - Last Filed: 11/06/23 07:58> Clinical Impression: Antineoplastic chemotherapy induced anemia Disposition: HOME SELF-CARE Instructions (If sedation given, give patient instructions): Anemia (ED) Additional Instructions: Return to the emergency department with any new, worsening, or concerning symptoms. Follow up with Dr. Levy. Referrals: Nany Shah MD [Primary Care Provider] - 1-2 days
[2023-10-28 11:56] LABS: ALT 11 U/L (4-34); AST 26 U/L (14-36); African American GFR (CKD) >90 (>60 ml/min/1.73 sqM); Albumin 2.8 g/dL (3.5-5.0); Alkaline Phosphatase 78 U/L (38-126); Anion Gap 3 mmol/L; Blood Urea Nitrogen 8 mg/dL (7-17); Calcium 8.5 mg/dL (8.4-10.2); Carbon Dioxide 26 mmol/L (22-30); Chloride 107 mmol/L (98-107); Glucose 87 mg/dL (74-99); Non-African American GFR(CKD) 89 (>60 ml/min/1.73 sqM); Potassium 3.7 mmol/L (3.5-5.1); Sodium 136 mmol/L (137-145); Total Bilirubin 0.5 mg/dL (0.2-1.3); Total Protein 4.9 g/dL (6.3-8.2)
[2023-10-28 11:57] LABS: Anisocytosis Slight; Basophils % (A) 1 %; Eosinophils % (A) 0 %; HCT 22.4 % (34.0-46.0); Hypochromasia Slight; Lymphocytes # (A) 0.5 k/uL (1.0-4.8); Lymphocytes % (A) 12 %; MCHC 31.1 g/dL (31.0-37.0); MCV 102.9 fL (80.0-100.0); Macrocytosis Moderate; Mean Platelet Volume 8.2; Monocytes # (A) 0.3 k/uL (0-1.0); Monocytes % (A) 8 %; Neutrophils # (A) 3.1 k/uL (1.3-7.7); Neutrophils % (A) 76 %; Platelet Count 372 k/uL (150-450); Poikilocytosis Slight; RBC 2.18 m/uL (3.80-5.40); WBC 4.1 k/uL (3.8-10.6)
[2023-10-28 12:18] LABS: Partial Thromboplastin Time 24.3 sec (22.0-30.0); Prothrombin Time 10.6 sec (10.0-12.5)
--- NOTE | 2023-10-28 12:33 | XR ---
EXAMINATION TYPE: XR chest 2V DATE OF EXAM: 10/28/2023 COMPARISON: 07/17/2023 HISTORY: Shortness of breath TECHNIQUE: Frontal and lateral views of the chest are obtained. FINDINGS: Scattered senescent parenchymal changes noted. Hyperinflation compatible with COPD. No evidence for infiltrate. No evidence for atelectasis. Heart size is stable. Mediastinal structures are stable and grossly unremarkable. No evidence for hilar prominence. Degenerative changes dorsal spine. IMPRESSION: 1. No evidence for acute pulmonary disease.
[2023-10-28 17:17] VITALS: RESP 16
[2023-10-28 18:42] VITALS: BP 119/62; PULSE 66; TEMP 97.7
== END 2023-10-28 18:42 | disposition home or self-care (01) ==
LOC: EC 10:46
DX: D64.9 Anemia, unspecified (principal); T45.1X5A Adverse effect of antineoplastic and immunosuppressive drugs, initial encounter; Z88.0 Allergy status to penicillin; Z88.5 Allergy status to narcotic agent; Z91.040 Latex allergy status; Z85.72 Personal history of non-Hodgkin lymphomas
CPT/HCPCS: 99284; 96374 ×2; 36430 ×2; 36415; 93005; 86900; 86901; 80053; 83605; 85025; 85610; 85730; 86850; 86920; 87636; 71046; 99285; P9016; J1642

== ENCOUNTER 2023-12-09 06:16 | Inpatient (IN) | payer MEDICARE ==
[2023-12-09] MEDS ORDERED: PNEUMONIA PROTOCOL UTILIZED 1 EACH MISC PO PRN (07:01)
--- NOTE | 2023-12-09 07:09 | ED ---
Weakness HPI - General Chief complaint: Weakness Stated complaint: Pneumonia anemia Time Seen by Provider: 12/09/23 06:22 Source: patient, EMS, RN notes reviewed Mode of arrival: EMS Limitations: no limitations - History of Present Illness Initial comments: 78-year-old female presents emergency department as a transfer from [facility] for anemia, pneumonia. Patient states she presented to the hospital there for increasing weakness. She does note that she has had a productive cough, weakness she states that she recently finished chemotherapy for lymphoma. Patient states she sees Dr. Levy. Patient states that she had anemia about a month ago in which she received a transfusion. She denies any bleeding. This was found to be related to her chemotherapy. - Related Data Home Medications Medication Instructions Recorded Confirmed Aspirin [Adult Low Dose Aspirin EC] 81 mg PO DAILY 04/22/17 07/15/23 Omeprazole [PriLOSEC] 20 mg PO DAILY PRN 04/22/17 07/15/23 Simvastatin [Zocor] 40 mg PO HS 04/22/17 07/15/23 lisinopriL [Zestril] 10 mg PO HS 04/22/17 07/15/23 L.acidoph,Paracasei, B.lactis 1 each PO DAILY 10/25/18 07/15/23 [Probiotic] Ergocalciferol [Vitamin D2 (1250 1,250 mcg PO WEEKLY 07/15/23 07/15/23 Mcg = 67356 Iu)] allopurinoL 400 mg PO BID 07/15/23 07/15/23 Previous Rx's Medication Instructions Recorded Acetaminophen Tab [Tylenol] 650 mg PO Q4H PRN #30 tablet 03/22/19 Allergies Allergy/AdvReac Type Severity Reaction Status Date / Time amoxicillin Allergy Rash/Hives Verified 12/09/23 06:23 codeine Allergy Hallucinati Verified 12/09/23 06:23 ons hydrocodone [From [place]] Allergy Nausea Verified 12/09/23 06:23 latex Allergy Itching Verified 12/09/23 06:23 Penicillins Allergy Rash/Hives Verified 12/09/23 06:23 Review of Systems ROS Statement: Those systems with pertinent positive or pertinent negative responses have been documented in the HPI. ROS Other: All systems not noted in ROS Statement are negative. Past Medical History Past Medical History: CVA/TIA, GERD/Reflux, Hyperlipidemia, Hypertension Additional Past Medical History / Comment(s): TIA 2013- no residual effects, diverticulitis, hx colon polyps, rectal bleeding, constipation, developed some type of blood clot in abdomen after bowel resection in 2018, B cell lymphoma - has not started chemo. yet History of Any Multi-Drug Resistant Organisms: None Reported Past Surgical History: Bowel Resection, Breast Surgery, Orthopedic Surgery Additional Past Surgical History / Comment(s): left foot bunionectomy, left breast lumpectomy-benign, colonoscopy, bowel resection x 2 Past Anesthesia/Blood Transfusion Reactions: Motion Sickness, Postoperative Nausea & Vomiting (PONV) Past Psychological History: No Psychological Hx Reported Smoking Status: Never smoker Past Alcohol Use History: None Reported Past Drug Use History: None Reported - Past Family History Mother Family Medical History: Deep Vein Thrombosis (DVT) Additional Family Medical History / Comment(s): age 44 Father Family Medical History: Renal Disease Additional Family Medical History / Comment(s): age 59 General Exam Limitations: no limitations General appearance: alert, in no apparent distress Head exam: Present: atraumatic, normocephalic, normal inspection Eye exam: Present: normal appearance, PERRL, EOMI. Absent: scleral icterus, conjunctival injection, periorbital swelling ENT exam: Present: normal exam, normal oropharynx, mucous membranes moist Neck exam: Present: normal inspection, full ROM. Absent: tenderness, meningismus, lymphadenopathy Respiratory exam: Present: wheezes, rhonchi. Absent: normal lung sounds bilaterally, respiratory distress, rales, stridor Cardiovascular Exam: Present: normal rhythm, tachycardia, normal heart sounds. Absent: systolic murmur, diastolic murmur, rubs, gallop, clicks GI/Abdominal exam: Present: soft, normal bowel sounds. Absent: distended, tenderness, guarding, rebound, rigid Course Vital Signs 12/09/23 12/09/23 06:17 06:39 Temperature 98.2 F Pulse Rate 75 73 Respiratory 14 14 Rate Blood Pressure 106/44 98/43 O2 Sat by Pulse 92 L 93 L Oximetry Medical Decision Making - Medical Decision Making Was pt. sent in by a medical professional or institution (, PA, MOTOR EXPERT, urgent care, hospital, or alf...) When possible be specific @ [facility] Did you speak to anyone other than the patient for history (EMS, parent, family, police, friend...)? What history was obtained from this source @ -No Did you review nursing and triage notes (agree or disagree)? Why? @ -I reviewed and agree with nursing and triage notes Were old charts reviewed (outside hosp., previous admission, EMS record, old EKG, old radiological studies, urgent care reports/EKG's, alf records)? Report findings @ -[Labs, CT from [facility] Differential Diagnosis (chest pain, altered mental status, abdominal pain women, abdominal pain men, vaginal bleeding, weakness, fever, dyspnea, syncope, headache, dizziness, GI bleed, back pain, seizure, CVA, palpatations, mental health, musculoskeletal)? @ -Differential Dyspnea: Coronary syndrome, arrhythmia, tamponade, asthma, COPD, pulmonary embolism, pneumonia, pneumothorax, pulmonary effusion, anaphylaxis, diabetic ketoacidosis, flailed chest, pulmonary contusion, diaphragmatic rupture, anemia, neuromuscular, this is not meant to be an all-inclusive list. EKG interpreted by me (3pts min.). @ -None X-rays interpreted by me (1pt min.). @ -None done CT interpreted by me (1pt min.). @ -None done U/S interpreted by me (1pt. min.). @ -None done What testing was considered but not performed or refused? (CT, X-rays, U/S, labs)? Why? @ -None What meds were considered but not given or refused? Why? @ -None Did you discuss the management of the patient with other professionals (professionals i.e. , PA, MOTOR EXPERT, lab, RT, psych nurse, family welfare social work professor, customs compliance analyst, teacher, retirement officer, casework manager)? Give summary @ -EM for admission Was smoking cessation discussed for >3mins.? @ -No Was critical care preformed (if so, how long)? @ -No Were there social determinants of health that impacted care today? How? (Homelessness, low income, unemployed, alcoholism, drug addiction, transportation, low edu. Level, literacy, decrease access to med. care, correction, rehab)? @ -No Was there de-escalation of care discussed even if they declined (Discuss DNR or withdrawal of care, Hospice)? DNR status @ -No What co-morbidities impacted this encounter? (DM, HTN, Smoking, COPD, CAD, Cancer, CVA, ARF, Chemo, Hep., AIDS, mental health diagnosis, sleep apnea, morbid obesity)? @ -Lymphoma Was patient admitted / discharged? Hospital course, mention meds given and route, prescriptions, significant lab abnormalities, going to OR and other pertinent info. @ -Admitted patient was a transfer from [facility]. Patient did receive 1 unit of blood patient did receive antibiotics for pneumonia. Patient will continue antibiotics, evaluation by pulmonary, oncology admitted to medicine. Undiagnosed new problem with uncertain prognosis? @ -No Drug Therapy requiring intensive monitoring for toxicity (Heparin, Nitro, Insulin, Cardizem)? @ -No Were any procedures done? @ -No Diagnosis/symptom? @ -Pneumonia, anemia Acute, or Chronic, or Acute on Chronic? @ -Acute Uncomplicated (without systemic symptoms) or Complicated (systemic symptoms)? @ -Comp given Side effects of treatment? @ -No Exacerbation, Progression, or Severe Exacerbation? @ -No Poses a threat to life or bodily function? How? (Chest pain, USA, PA, pneumonia, PE, COPD, DKA, ARF, appy, cholecystitis, CVA, Diverticulitis, Homicidal, Suicidal, threat to staff... and all critical care pts) @ -Yes pneumonia, respiratory failure Disposition Clinical Impression: Pneumonia, Anemia Disposition: ADMITTED IP TO THIS HOSP Condition: Poor Referrals: Nany Shah MD [Primary Care Provider] - 1-2 days Time of Disposition: 07:09
[2023-12-09] MEDS: CEFEPIME 2 GM in SODIUM CHLORIDE 0.9% 100 ML IVPB SCH (08:14)
[2023-12-09] MEDS: IPRATROPIUM-ALBUTEROL 3 ML NEB INHALATION PRN (12:24)
--- NOTE | 2023-12-09 12:45 | P.CNPUL ---
History of Present Illness Consult date: 12/09/23 Requesting physician: Boris Sahu Reason for consult: pneumonia Chief complaint: Weakness History of present illness: This is a 78-year-old female known history of non-Hodgkin's lymphoma, normally sees Dr. Levy, and she is receiving chemotherapy. Presented to the ER in [facility] with chief complaint of increased weakness, productive cough, chills but no fever. Workup in the ER in [place] showed evidence of anemia with a hemoglobin of 7, according to the patient she was anemic about a month ago, and she received 1 unit of packed RBCs by Dr. Levy. Patient also had some abnormal chest x-ray showing multifocal pneumonia. Hence after evaluation in [facility], arrangements were made for the patient to be transferred to [facility] for higher level of care. Patient is noted to be afebrile, she had O2 saturation of 94% on room air, she did not seem to be in any distress, blood pressure is normal 115/55 basic labs done in our ER showed a hemoglobin of 7 otherwise the rest of the labs were unremarkable. Patient also tested negative for influenza A, influenza B, RSV and COVID-19. Review of Systems REVIEW OF SYSTEMS: CONSTITUTIONAL: Mostly generalized weakness since the patient finished her chemotherapy about a week ago. EYES: Negative. ENT: Negative. CARDIAC: Negative. PULMONARY: Cough and minimal shortness of breath, cough is productive with yellow phlegm. GI: Negative. GENITOURINARY: Negative. MUSCULOSKELETAL: Generalized weakness SKIN: Negative. NEUROPSYCH: Negative. ENDOCRINE: Negative. HEMATOLOGIC: Anemia secondary to chemotherapy Past Medical History Past Medical History: CVA/TIA, GERD/Reflux, Hyperlipidemia, Hypertension Additional Past Medical History / Comment(s): TIA 2012- no residual effects, diverticulitis, hx colon polyps, rectal bleeding, constipation, developed some type of blood clot in abdomen after bowel resection in 2018, B cell lymphoma - has not started chemo. yet History of Any Multi-Drug Resistant Organisms: None Reported Past Surgical History: Bowel Resection, Breast Surgery, Orthopedic Surgery Additional Past Surgical History / Comment(s): left foot bunionectomy, left breast lumpectomy-benign, colonoscopy, bowel resection x 2 Past Anesthesia/Blood Transfusion Reactions: Motion Sickness, Postoperative Nausea & Vomiting (PONV) Past Psychological History: No Psychological Hx Reported Smoking Status: Never smoker Past Alcohol Use History: None Reported Past Drug Use History: None Reported - Past Family History Mother Family Medical History: Deep Vein Thrombosis (DVT) Additional Family Medical History / Comment(s): age 44 Father Family Medical History: Renal Disease Additional Family Medical History / Comment(s): age 59 Medications and Allergies Home Medications Medication Instructions Recorded Confirmed Type Aspirin [Adult Low Dose Aspirin EC] 81 mg PO DAILY 04/22/17 12/09/23 History Simvastatin [Zocor] 40 mg PO HS 04/22/17 12/09/23 History lisinopriL [Zestril] 10 mg PO HS 04/22/17 12/09/23 History L.acidoph,Paracasei, B.lactis 1 cap PO DAILY 10/25/18 12/09/23 History [Probiotic] ALPRAZolam [Xanax] 0.25 mg PO DAILY PRN 12/09/23 12/09/23 History Cholecalciferol [Vitamin D3 (25 25 mcg PO DAILY 12/09/23 12/09/23 History Mcg = 1000 Iu)] Allergies Allergy/AdvReac Type Severity Reaction Status Date / Time amoxicillin Allergy Rash/Hives Verified 12/09/23 09:58 codeine Allergy Hallucinati Verified 12/09/23 09:58 ons hydrocodone [From [place]] Allergy Nausea Verified 12/09/23 09:58 latex Allergy Itching Verified 12/09/23 09:58 Penicillins Allergy Rash/Hives Verified 12/09/23 09:58 Physical Exam Vitals: Vital Signs Temp Pulse Resp BP Pulse Ox 12/09/23 12:33 79 12/09/23 12:27 94 L 12/09/23 12:24 81 12/09/23 07:04 71 15 115/55 92 L 12/09/23 06:39 73 14 98/43 93 L 12/09/23 06:17 98.2 F 75 14 106/44 92 L Intake and Output 12/08/23 12/09/23 12/09/23 22:59 06:59 14:59 Other: Weight 53.07 kg General: Revealed a 78-year-old female in no distress, on room air Skin: Skin is warm and dry and no rashes or lesions are noted. Eye: Pupils are equal, round and reactive to light, extra-ocular movements are intact; there is normal conjunctiva bilaterally. Ears, nose, mouth and throat: There are moist mucous membranes and no oral lesions. Neck: The neck is supple, there is no tenderness or JVD. Cardiovascular: There is a regular rate and rhythm. No murmur, rub or gallop is appreciated. Respiratory: Diminished breath sound bilaterally no rhonchi no wheezes Gastrointestinal: Soft, non-distended, non-tender abdomen without masses or organomegaly noted. There is no rebound or guarding present. Bowel sounds are unremarkable. Back: There is no tenderness to palpation in the midline. There is no obvious deformity. Musculoskeletal: Normal ROM, no tenderness, There is no pedal edema. There is no calf tenderness or swelling. No cords were appreciated. Neurological: CN II-XII intact, Cranial nerves III through XII are intact. There are no obvious motor or sensory deficits. Coordination appears grossly intact. Speech is normal. Psychiatric: Cooperative, appropriate mood & affect, normal judgment. Results - Diagnostic Findings Chest x-ray: report reviewed (Chest x-ray in our institution is pending, reviewed report from [place]) Assessment and Plan Assessment: Impression: Acute multifocal pneumonia, most likely gram-negative pneumonia patient is considered immunocompromise, on chemotherapy and has history of non-Hodgkin's lymphoma History of non-Hodgkin's lymphoma, status postchemotherapy, finished treatment a week ago. Anemia secondary to chemotherapy Benign essential hypertension GERD without esophagitis History of vitamin D deficiency History of gout Dyslipidemia History of bowel resection in 2018 Recommendation: Continue antibiotics, patient is receiving cefepime and Zithromax Check chest x-ray in a.m. Continue bronchodilators/DuoNeb Patient to be seen by oncology on consultation Will continue to follow Check sputum and blood cultures. Time with Patient: Greater than 30
[2023-12-09] MEDS: FAMOTIDINE 20 MG TAB PO SCH (13:04)
[2023-12-09 16:35] LABS: Anisocytosis Slight; HCT 28.6 % (34.0-46.0); Hypochromasia Marked; MCHC 32.4 g/dL (31.0-37.0); MCV 98.7 fL (80.0-100.0); Macrocytosis Slight; Mean Platelet Volume 8.1; Poikilocytosis Slight; RBC 2.89 m/uL (3.80-5.40); RDW 16.9 % (11.5-15.5); WBC 4.5 k/uL (3.8-10.6)
[2023-12-09 16:43] LABS: HGB 9.3 gm/dL (11.4-16.0); Platelet Count 148 k/uL (150-450)
[2023-12-09] MEDS: guaiFENesin SYRUP 100MG/5ML 200 MG/10 ML CUP PO PRN (20:45)
[2023-12-09] MEDS: ATORVASTATIN 20 MG TAB PO SCH (20:45)
--- NOTE | 2023-12-09 20:48 | P.CONS ---
History of Present Illness - Reason for Consult Consult date: 12/09/23 Follicular lymphoma, just finished treatment Requesting physician: Travis Reich - Chief Complaint anemia, pneumonia - History of Present Illness Ms. Yoon is a 78-year-old female patient of Dr. Levy who presented late last year with complaints of worsening right lower quadrant abdominal pain. She was seen and [place], transferred to [place] where she had CT AP 05/02/2023. This showed very large retroperitoneal soft tissue mass encasing the aorta and extending into the mesentery, extending into the jejunum and encasing the left renal artery, multiple peritoneal nodules. 06/10/2023 CT-guided biopsy of [place] of the abdominal mass, positive for classic follicular lymphoma, low- grade. 07/01/2023 PET showed generalized adenopathies. She was started on R-C HOP 07/28/2023. Treatment follow-up PET scan 09/23/2023 revealed significant improvement in her disease with a new lung nodule. She completed 6 cycles 11/30/2023, dose adjusted last cycle because of poor tolerance. She is currently admitted as a transfer from [place], reported that there were concerns about patient needing additional blood products and them not having them available. Patient states she had symptoms starting last week of congested cough, this progressed, she has been expectorating thick yellow/green sputum, noted chills, not sure she had a fever, she also reported some cons tipation. Her cough persists, she denies significant shortness of breath, constipation was treated with a suppository and she has had a BM. She denies oral irritation, nausea, vomiting, chest pain, abdominal pain, dysuria or hematuria. On admission here WBC 4.5, hemoglobin 9.3 after 2 units-hemoglobin reported in the 6 range on paperwork from [place]-, hematocrit 28.6, platelet count 148,000. No fever since admission. She has been started on antibiotics, pneumonia protocol. Review of Systems 10 point review of systems is negative except as stated in HPI Past Medical History Past Medical History: CVA/TIA, GERD/Reflux, Hyperlipidemia, Hypertension Additional Past Medical History / Comment(s): TIA 2012- no residual effects, diverticulitis, hx colon polyps, rectal bleeding, constipation, developed some type of blood clot in abdomen after bowel resection in 2018, B cell lymphoma - has not started chemo. yet History of Any Multi-Drug Resistant Organisms: None Reported Past Surgical History: Bowel Resection, Breast Surgery, Orthopedic Surgery Additional Past Surgical History / Comment(s): left foot bunionectomy, left breast lumpectomy-benign, colonoscopy, bowel resection x 2 Past Anesthesia/Blood Transfusion Reactions: Motion Sickness, Postoperative Nausea & Vomiting (PONV) Past Psychological History: No Psychological Hx Reported Smoking Status: Never smoker Past Alcohol Use History: None Reported Past Drug Use History: None Reported - Past Family History Mother Family Medical History: Deep Vein Thrombosis (DVT) Additional Family Medical History / Comment(s): age 44 Father Family Medical History: Renal Disease Additional Family Medical History / Comment(s): age 59 Medications and Allergies Home Medications Medication Instructions Recorded Confirmed Type Aspirin [Adult Low Dose Aspirin EC] 81 mg PO DAILY 04/22/17 12/09/23 History Simvastatin [Zocor] 40 mg PO HS 04/22/17 12/09/23 History lisinopriL [Zestril] 10 mg PO HS 04/22/17 12/09/23 History L.acidoph,Paracasei, B.lactis 1 cap PO DAILY 10/25/18 12/09/23 History [Probiotic] ALPRAZolam [Xanax] 0.25 mg PO DAILY PRN 12/09/23 12/09/23 History Cholecalciferol [Vitamin D3 (25 25 mcg PO DAILY 12/09/23 12/09/23 History Mcg = 1000 Iu)] Allergies Allergy/AdvReac Type Severity Reaction Status Date / Time amoxicillin Allergy Rash/Hives Verified 12/09/23 09:58 codeine Allergy Hallucinati Verified 12/09/23 09:58 ons hydrocodone [From [place]] Allergy Nausea Verified 12/09/23 09:58 latex Allergy Itching Verified 12/09/23 09:58 Penicillins Allergy Rash/Hives Verified 12/09/23 09:58 Physical Exam Vitals: Vital Signs Temp Pulse Resp BP Pulse Ox 12/09/23 20:31 84 12/09/23 20:17 85 12/09/23 19:56 82 16 124/57 95 12/09/23 15:31 80 12/09/23 15:17 84 12/09/23 12:33 79 12/09/23 12:27 94 L 12/09/23 12:24 81 12/09/23 12:00 76 18 100/40 93 L 12/09/23 10:00 74 112/57 95 12/09/23 08:00 71 127/62 92 L 12/09/23 07:04 71 15 115/55 92 L 12/09/23 06:39 73 14 98/43 93 L 12/09/23 06:17 98.2 F 75 14 106/44 92 L Intake and Output 12/09/23 12/09/23 12/09/23 06:59 14:59 22:59 Other: Weight 53.07 kg - Constitutional General appearance: average body habitus, cooperative, no acute distress - EENT Oral mucosa is red and dry Eyes: anicteric sclerae, EOMI ENT: hearing grossly normal - Neck Neck: no lymphadenopathy - Respiratory Bilateral breath sounds are Rales, diminished, poor air exchange - Cardiovascular Rhythm: regular Heart sounds: normal: S1, S2 Abnormal Heart Sounds: no systolic murmur, no diastolic murmur, no rub, no S3 Gallop, no S4 Gallop, no click, no other leg Peripheral Edema: bilateral: None - Gastrointestinal General gastrointestinal: no absent bowel sounds, no decreased bowel sounds, no distended, no hepatomegaly, no hyperactive bowel sounds, normal bowel sounds, no organomegaly, no rigid, no scaphoid, soft, no splenomegaly, no tenderness, no umbilical hernia, no ventral hernia - Integumentary Integumentary: normal - Neurologic Neurologic: CNII-XII intact - Musculoskeletal Musculoskeletal: strength equal bilaterally - Psychiatric Psychiatric: A&O x's 3, appropriate affect, intact judgment & insight Results CBC & Chem 7: 12/09/23 16:11 Labs: Abnormal Lab Results - Last 24 Hours (Table) 12/09/23 Range/Units 16:11 RBC 2.89 L (3.80-5.40) m/uL Hgb 9.3 L D (11.4-16.0) gm/dL Hct 28.6 L (34.0-46.0) % RDW 16.9 H (11.5-15.5) % Plt Count 148 L D (150-450) k/uL CT scan - abdomen: report reviewed CT scan - pelvis: report reviewed Assessment and Plan (1) Pneumonia Current Visit: Yes Status: Acute Priority: High Code(s): J18.9 - PNEUMONIA, UNSPECIFIED ORGANISM SNOMED Code(s): 601501229 (2) Anemia Current Visit: Yes Status: Acute Priority: Medium Code(s): D64.9 - ANEMIA, UNSPECIFIED SNOMED Code(s): 522738822 (3) Follicular lymphoma Current Visit: Yes Status: Acute Priority: Medium Code(s): C82.90 - FOLLICULAR LYMPHOMA, UNSPECIFIED, UNSPECIFIED SITE SNOMED Code(s): 4681515554 Plan: Pneumonia -Symptoms of the same including cough, purulent sputum, adventitious breath sounds -Pneumonia protocol has been initiated -Pulmonary has been consulted. Defer treatment of the same to them Anemia -Chemotherapy related. -Patient has been transfused with 2 units of packed red blood cells for hemoglobin and around 6.8 I believe, on the paperwork from [place]. She has had an appropriate response to 2 units with a hemoglobin of 9.3 currently. -Transfuse for hemoglobin <7 Follicular lymphoma -Status post 6 cycles of R-CHOP completed last week. Last cycle dose reduced because of side effects -Patient will be entering salty in the next few days. Continue to monitor counts for the same. Patient did receive G-CSF. -Patient already has a follow-up scheduled with Dr. Levy. -CT of the abdomen and pelvis report was reviewed from [place]. The dom inant mass in the abdomen was reported at about half the size of what it was initially. She will be having a PET scan to see how active the residual is, most likely scar tissue. Cough suppressant added per patient request. Salt and soda for oral irritation.
[2023-12-09] MEDS: SALT AND SODA MOUTHWASH 1,000 ML PO SCH (23:29)
--- NOTE | 2023-12-10 02:00 | P.HPIM ---
History of Present Illness H&P Date: 12/09/23 Chief Complaint: Generalized weakness Patient is a 78-year-old female with a past medical history of non-Hodgkin's lymphoma, retroperitoneal lymphadenopathy who is currently receiving chemotherapy, hypertension, hyponatremia, history of CVA/TIA with noticeable defects and GERD was transferred to ER from [facility]. Patient presents to ER due to generalized weakness, cough and mild shortness of breath. Denies any fever. Patient states that she was having chills at home.. Patient is currently receiving chemotherapy. She was found to be hemoglobin of 6.7 and was started on blood transfusion with 1 unit of PRBC. On admission blood pressure 106/44 pulse 75 respiration 14 and pulse ox 92% on room air. CT thorax was done at the other facility showed multifocal infiltrates and possible pneumonia. She was given a dose of cefepime. Other laboratory data from the [facility] reviewed. WBC was 1.6. Laboratory data showed WBCs of 4.5 hemoglobin 9.3 and platelets 148 Review of Systems Constitutional: Patient denies any fever. Does have subjective chills at home. Generalized weakness and fatigue.. Abdomen: Patient denied nausea vomiting and diarrhea and abdominal pain. Cardiovascular: Patient denies any chest pain. Mild short of breath no palpitations. No leg swelling Respiratory: patient denied any cough or sputum production. Mild shortness of breath Neurologic: Patient denied any numbness or tingling. no headache. Musculoskeletal: Patient denies any complaints of joint swelling or deformity. Skin: Negative Psychiatric: Negative Endocrine: No heat or cold intolerance. No recent weight gain. Genitourinary: No dysuria or hematuria. All other 14 point ROS negative except the above Past Medical History Past Medical History: CVA/TIA, GERD/Reflux, Hyperlipidemia, Hypertension Additional Past Medical History / Comment(s): TIA 2012- no residual effects, diverticulitis, hx colon polyps, rectal bleeding, constipation, developed some type of blood clot in abdomen after bowel resection in 2018, B cell lymphoma - has not started chemo. yet History of Any Multi-Drug Resistant Organisms: None Reported Past Surgical History: Bowel Resection, Breast Surgery, Orthopedic Surgery Additional Past Surgical History / Comment(s): left foot bunionectomy, left breast lumpectomy-benign, colonoscopy, bowel resection x 2 Past Anesthesia/Blood Transfusion Reactions: Motion Sickness, Postoperative Nausea & Vomiting (PONV) Past Psychological History: No Psychological Hx Reported Smoking Status: Never smoker Past Alcohol Use History: None Reported Past Drug Use History: None Reported - Past Family History Mother Family Medical History: Deep Vein Thrombosis (DVT) Additional Family Medical History / Comment(s): age 44 Father Family Medical History: Renal Disease Additional Family Medical History / Comment(s): age 59 Medications and Allergies Home Medications Medication Instructions Recorded Confirmed Type Aspirin [Adult Low Dose Aspirin EC] 81 mg PO DAILY 04/22/17 12/09/23 History Simvastatin [Zocor] 40 mg PO HS 04/22/17 12/09/23 History lisinopriL [Zestril] 10 mg PO HS 04/22/17 12/09/23 History L.acidoph,Paracasei, B.lactis 1 cap PO DAILY 10/25/18 12/09/23 History [Probiotic] ALPRAZolam [Xanax] 0.25 mg PO DAILY PRN 12/09/23 12/09/23 History Cholecalciferol [Vitamin D3 (25 25 mcg PO DAILY 12/09/23 12/09/23 History Mcg = 1000 Iu)] Allergies Allergy/AdvReac Type Severity Reaction Status Date / Time amoxicillin Allergy Rash/Hives Verified 12/09/23 09:58 codeine Allergy Hallucinati Verified 12/09/23 09:58 ons hydrocodone [From [place]] Allergy Nausea Verified 12/09/23 09:58 latex Allergy Itching Verified 12/09/23 09:58 Penicillins Allergy Rash/Hives Verified 12/09/23 09:58 Physical Exam Vitals: Vital Signs Temp Pulse Resp BP Pulse Ox 12/09/23 07:04 71 15 115/55 92 L 12/09/23 06:39 73 14 98/43 93 L 12/09/23 06:17 98.2 F 75 14 106/44 92 L Intake and Output 12/08/23 12/09/23 12/09/23 22:59 06:59 14:59 Other: Weight 53.07 kg PHYSICAL EXAMINATION: Patient is lying in the bed comfortably, no acute distress, awake alert and oriented.. HEENT: Normocephalic. Neck is supple. Pupils reactive. Nostrils clear. Oral cavity is moist. Neck reveals no JVD, carotid bruits, or thyromegaly. CHEST EXAMINATION: Trachea is central. Symmetrical expansion. Lung larson clear to auscultation and percussion. CARDIAC: Normal S1, S2 with no gallops. No murmurs ABDOMEN: Soft. Bowel sounds normal. No organomegaly. No abdominal bruits. Extremities: Lower extremity trace edema. No clubbing or cyanosis Neurologically awake, alert, oriented x3 with well-coordinated movements. No focal deficits noted Skin: No rash or skin lesions. Psychiatric: Coperative. Nonsuicidal Musculoskeletal: No joint swelling or deformity. Normal range of motion. Results CBC & Chem 7: 12/10/23 07:59 12/10/23 07:59 Thrombosis Risk Factor Assmnt - DVT/VTE Prophylaxis DVT/VTE Prophylaxis: Pharmacologic Prophylaxis ordered Assessment and Plan Assessment: Acute multifocal infiltrates and possible gram-negative pneumonia. Patient is on chemotherapy Non-Hodgkin lymphoma status postchemotherapy completed about a week ago Anemia secondary to chemotherapy Hypertension Hyperlipidemia GERD History of gout and vitamin D deficiency History of CVA/TIA with no residual weakness. DVT prophylax with heparin subcu Plan: Patient will be continued on antibiotics cefepime and azithromycin. Follow-up blood cultures and sputum culture. Patient was transfused with 1 unit of PRBC. Pulm monitor H&H. Transfuse if hemoglobin level less than 7. Procalcitonin level was ordered. Oncology and pulmonary was consulted. Continue to follow closely. Time with Patient: Greater than 30
--- NOTE | 2023-12-10 08:04 | XR ---
EXAMINATION TYPE: XR chest 1V portable DATE OF EXAM: 12/10/2023 HISTORY: Shortness of breath. COMPARISON: 10/28/2023 TECHNIQUE: Single view of the chest is submitted. FINDINGS: Demonstrated are scattered senescent parenchymal change. Vague basilar infiltrates noted. Correlate for pneumonia. The heart is stable. Hilar and mediastinal structures are within normal limits. Degenerative changes are seen of the dorsal spine. IMPRESSION: 1. Vague basilar infiltrates noted. Correlate for pneumonia.
[2023-12-10 08:46] LABS: Anisocytosis Slight; Basophils % (A) 0 %; Eosinophils # (A) 0.1 k/uL (0-0.7); Eosinophils % (A) 2 %; HCT 31.3 % (34.0-46.0); HGB 10.2 gm/dL (11.4-16.0); Hypochromasia Marked; Lymphocytes # (A) 0.3 k/uL (1.0-4.8); Lymphocytes % (A) 4 %; MCH 32.4 pg (25.0-35.0); MCHC 32.7 g/dL (31.0-37.0); MCV 99.1 fL (80.0-100.0); Macrocytosis Slight; Monocytes # (A) 0.5 k/uL (0-1.0); Monocytes % (A) 7 %; Neutrophils # (A) 6.8 k/uL (1.3-7.7); Neutrophils % (A) 86 %; Platelet Count 163 k/uL (150-450); Poikilocytosis Slight; RBC 3.16 m/uL (3.80-5.40); WBC 7.9 k/uL (3.8-10.6)
[2023-12-10 09:01] LABS: ALT 11 U/L (4-34); AST 24 U/L (14-36); African American GFR (CKD) >90 (>60 ml/min/1.73 sqM); Albumin 2.6 g/dL (3.5-5.0); Alkaline Phosphatase 86 U/L (38-126); Anion Gap 5 mmol/L; Blood Urea Nitrogen 8 mg/dL (7-17); Calcium 8.7 mg/dL (8.4-10.2); Carbon Dioxide 24 mmol/L (22-30); Chloride 108 mmol/L (98-107); Glucose 84 mg/dL (74-99); Non-African American GFR(CKD) >90 (>60 ml/min/1.73 sqM); Potassium 3.2 mmol/L (3.5-5.1); Sodium 137 mmol/L (137-145); Total Bilirubin 0.9 mg/dL (0.2-1.3); Total Protein 4.9 g/dL (6.3-8.2)
[2023-12-10] MEDS: AZITHROMYCIN 500 MG in SODIUM CHLORIDE 0.9% 250 ML IVPB SCH (09:54)
[2023-12-10 11:44] LABS: Glucose,Whole Blood 92 mg/dL (70-110)
[2023-12-10 13:55] VITALS: BMI 20.2
[2023-12-10] MEDS: POTASSIUM CHLORIDE ER 20 MEQ TAB.ER PO STA (14:32)
[2023-12-10] MEDS: ENOXAPARIN 30 MG/0.3 ML SYRINGE SQ STA (14:32)
[2023-12-10] MEDS: POTASSIUM CHLORIDE ER 20 MEQ TAB.ER PO SCH (14:33)
--- NOTE | 2023-12-10 15:34 | P.PN ---
Subjective Progress Note Date: 12/10/23 This is a 78-year-old female known history of non-Hodgkin's lymphoma, normally sees Dr. Levy, and she is receiving chemotherapy. Presented to the ER in [facility] with chief complaint of increased weakness, productive cough, chills but no fever. Workup in the ER in [place] showed evidence of anemia with a hemoglobin of 7, according to the patient she was anemic about a month ago, and she received 1 unit of packed RBCs by Dr. Levy. Patient also had some abnormal chest x-ray showing multifocal pneumonia. Hence after evaluation in [facility], arrangements were made for the patient to be transferred to [facility] for higher level of care. Patient is noted to be afebrile, she had O2 saturation of 94% on room air, she did not seem to be in any distress, blood pressure is normal 115/55 basic labs done in our ER showed a hemoglobin of 7 otherwise the rest of the labs were unremarkable. Patient also tested negative for influenza A, influenza B, RSV and COVID-19. The patient is seen today December 10, 2023 in follow-up on the selective care unit. She is currently sitting up at the bedside. Awake and alert in no acute distress. She is maintaining O2 saturations in the 90s on room air. She is afebrile. Hemodynamically stable. Chest x-ray shows vague basilar infiltrates. White count 7.9. Hemoglobin 10.2. Platelets 163. Sodium 137. Potassium 3.2. Bicarb 24. BUN 8. Creatinine 0.40. Legionella screen negative. Calcitonin negative at 0.35. He is currently on cefepime and azithromycin. Objective - Vital Signs Vital signs: Vital Signs Temp 98.4 F 12/10/23 08:00 Pulse 84 12/10/23 13:49 Resp 18 12/10/23 08:00 BP 126/76 12/10/23 12:00 Pulse Ox 95 12/10/23 12:00 FiO2 Intake & Output 12/09/23 12/10/23 12/10/23 18:59 06:59 18:59 Intake Total 480 Balance 480 Weight 52 kg 52 kg Intake: Oral 480 Other: # Voids 2 - Exam GENERAL EXAM: Alert, pleasant 78-year-old female, on room air, comfortable in no apparent distress. HEAD: Normocephalic. EYES: Normal reaction of pupils, equal size. NOSE: Clear with pink turbinates. THROAT: No erythema or exudates. NECK: No masses, no JVD. CHEST: No chest wall deformity. LUNGS: Equal air entry with few scattered rhonchi. CVS: S1 and S2 normal with no audible murmur, regular rhythm. ABDOMEN: No hepatosplenomegaly, normal bowel sounds, no guarding or rigidity. SPINE: No scoliosis or deformity SKIN: No rashes CENTRAL NERVOUS SYSTEM: No focal deficits, tone is normal in all 4 extremities. EXTREMITIES: There is no peripheral edema. No clubbing, no cyanosis. Peripheral pulses are intact. - Labs CBC & Chem 7: 12/10/23 07:59 12/10/23 07:59 Labs: Abnormal Lab Results - Last 24 Hours (Table) 12/09/23 12/10/23 12/10/23 Range/Units 16:11 07:59 07:59 RBC 2.89 L 3.16 L (3.80-5.40) m/uL Hgb 9.3 L D 10.2 L (11.4-16.0) gm/dL Hct 28.6 L 31.3 L (34.0-46.0) % RDW 16.9 H 17.0 H (11.5-15.5) % Plt Count 148 L D (150-450) k/uL Lymphocytes # 0.3 L (1.0-4.8) k/uL Potassium 3.2 L (3.5-5.1) mmol/L Chloride 108 H (98-107) mmol/L Creatinine 0.40 L (0.52-1.04) mg/dL Total Protein 4.9 L (6.3-8.2) g/dL Albumin 2.6 L (3.5-5.0) g/dL Microbiology - Last 24 Hours (Table) 12/09/23 13:00 Gram Stain - Preliminary Sputum Sputum Culture - Preliminary Assessment and Plan Assessment: Acute multifocal pneumonia, most likely gram-negative pneumonia patient is considered immunocompromise, on chemotherapy and has history of non-Hodgkin's lymphoma History of non-Hodgkin's lymphoma, status postchemotherapy, finished treatment a week ago. Anemia secondary to chemotherapy Benign essential hypertension GERD without esophagitis History of vitamin D deficiency History of gout Dyslipidemia History of bowel resection in 2018 Plan: The patient was seen and evaluated Chest x-ray, labs and medications reviewed Possible viral pneumonia but immunocompromise Continue antibiotics for now Oertli stable and on room air Possible discharge in a.m. We will continue to follow I have personally seen and examined the patient, performed the documentation and the assessment and plan as written. Number of minutes spent on the visit: 10.
[2023-12-10 16:27] LABS: Glucose,Whole Blood 83 mg/dL (70-110)
--- NOTE | 2023-12-10 21:10 | P.PN ---
Subjective Progress Note Date: 12/10/23 Principal diagnosis: pneumonia,recently finished treatment for follicular lymphoma Pt doing well today, cough is less, she is breathing comfortably, she is eating, no fever or other acute c/o. Objective - Vital Signs Vital signs: Vital Signs Temp 98.4 F 12/10/23 08:00 Pulse 84 12/10/23 13:49 Resp 18 12/10/23 08:00 BP 126/76 12/10/23 12:00 Pulse Ox 95 12/10/23 12:00 FiO2 Intake & Output 12/09/23 12/10/23 12/10/23 18:59 06:59 18:59 Intake Total 480 Balance 480 Weight 52 kg 52 kg Intake: Oral 480 - Constitutional General appearance: Present: average body habitus, cooperative, no acute distress - EENT Eyes: Present: anicteric sclerae, EOMI ENT: Present: hearing grossly normal, normal oropharynx - Respiratory Respiratory: bilateral: diminished - Cardiovascular Rhythm: regular Heart sounds: normal: S1, S2 Abnormal Heart Sounds: Absent: systolic murmur, diastolic murmur, rub, S3 Gallop, S4 Gallop, click, other - Peripheral edema leg Peripheral Edema: bilateral: None - Gastrointestinal General gastrointestinal: Present: normal bowel sounds, soft - Integumentary Integumentary: Present: normal - Neurologic Neurologic: Present: CNII-XII intact - Musculoskeletal Musculoskeletal: Present: strength equal bilaterally - Psychiatric Psychiatric: Present: A&O x's 3, appropriate affect, intact judgment & insight - Labs CBC & Chem 7: 12/10/23 07:59 12/10/23 07:59 Labs: Abnormal Lab Results - Last 24 Hours (Table) 12/09/23 12/10/23 12/10/23 Range/Units 16:11 07:59 07:59 RBC 2.89 L 3.16 L (3.80-5.40) m/uL Hgb 9.3 L D 10.2 L (11.4-16.0) gm/dL Hct 28.6 L 31.3 L (34.0-46.0) % RDW 16.9 H 17.0 H (11.5-15.5) % Plt Count 148 L D (150-450) k/uL Lymphocytes # 0.3 L (1.0-4.8) k/uL Potassium 3.2 L (3.5-5.1) mmol/L Chloride 108 H (98-107) mmol/L Creatinine 0.40 L (0.52-1.04) mg/dL Total Protein 4.9 L (6.3-8.2) g/dL Albumin 2.6 L (3.5-5.0) g/dL Microbiology - Last 24 Hours (Table) 12/09/23 13:00 Gram Stain - Preliminary Sputum Sputum Culture - Preliminary - Imaging and Cardiology Chest x-ray: report reviewed Assessment and Plan (1) Pneumonia Current Visit: Yes Status: Acute Priority: High Code(s): J18.9 - PNEUMONIA, UNSPECIFIED ORGANISM SNOMED Code(s): 131209148 (2) Anemia Current Visit: Yes Status: Acute Priority: Medium Code(s): D64.9 - ANEMIA, UNSPECIFIED SNOMED Code(s): 102837692 (3) Follicular lymphoma Current Visit: Yes Status: Acute Priority: Medium Code(s): C82.90 - FOLLICULAR LYMPHOMA, UNSPECIFIED, UNSPECIFIED SITE SNOMED Code(s): 8500438823 Plan: Pneumonia -Symptoms of the same including cough, purulent sputum, adventitious breath sounds. On today's exam, much improved -Pneumonia protocol cont -Pulmonary has been consulted. Defer treatment of the same to them Anemia -Chemotherapy related. -Patient has been transfused with 2 units of packed red blood cells for hemoglobin and around 6.8 I believe, on the paperwork from [facility]. Hgb 10.2 today Follicular lymphoma -Status post 6 cycles of R-CHOP completed last week. Last cycle dose reduced because of side effects -Patient will be entering salty in the next few days. Continue to monitor counts for the same. Patient did receive G-CSF. -Patient already has a follow-up scheduled with Dr. Levy. -CT of the abdomen and pelvis report was reviewed from [facility]. The dominant mass in the abdomen was reported at about half the size of what it was initially. She will be having a PET scan to see how active the residual is, most likely scar tissue.
[2023-12-11 08:30] LABS: Anisocytosis Slight; Basophils % (A) 1 %; Eosinophils # (A) 0.1 k/uL (0-0.7); Eosinophils % (A) 1 %; HCT 29.1 % (34.0-46.0); HGB 9.2 gm/dL (11.4-16.0); Hypochromasia Marked; Lymphocytes # (A) 0.4 k/uL (1.0-4.8); Lymphocytes % (A) 4 %; MCH 31.4 pg (25.0-35.0); MCHC 31.5 g/dL (31.0-37.0); MCV 99.8 fL (80.0-100.0); Macrocytosis Slight; Monocytes # (A) 0.4 k/uL (0-1.0); Monocytes % (A) 5 %; Neutrophils # (A) 7.6 k/uL (1.3-7.7); Neutrophils % (A) 89 %; Platelet Count 201 k/uL (150-450); Poikilocytosis Slight; RBC 2.92 m/uL (3.80-5.40); RDW 16.9 % (11.5-15.5); WBC 8.6 k/uL (3.8-10.6)
[2023-12-11] MEDS ORDERED: ONDANSETRON 4 MG/2 ML VIAL IVP PRN (08:46)
[2023-12-11 08:56] LABS: African American GFR (CKD) >90 (>60 ml/min/1.73 sqM); Anion Gap 3 mmol/L; Blood Urea Nitrogen 7 mg/dL (7-17); Calcium 8.7 mg/dL (8.4-10.2); Carbon Dioxide 24 mmol/L (22-30); Chloride 110 mmol/L (98-107); Glucose 78 mg/dL (74-99); Non-African American GFR(CKD) >90 (>60 ml/min/1.73 sqM); Potassium 3.8 mmol/L (3.5-5.1); Sodium 137 mmol/L (137-145)
[2023-12-11] MEDS: ONDANSETRON 4 MG TAB PO PRN (09:19)
--- NOTE | 2023-12-11 14:31 | P.PN ---
Subjective Progress Note Date: 12/11/23 Principal diagnosis: Bilateral multifocal pneumonia This is a 78-year-old female known history of non-Hodgkin's lymphoma, normally sees Dr. Levy, and she is receiving chemotherapy. Presented to the ER in [facility] with chief complaint of increased weakness, productive cough, chills but no fever. Workup in the ER in [place] showed evidence of anemia with a hemoglobin of 7, according to the patient she was anemic about a month ago, and she received 1 unit of packed RBCs by Dr. Levy. Patient also had some abnormal chest x-ray showing multifocal pneumonia. Hence after evaluation in [facility], arrangements were made for the patient to be transferred to [facility] for higher level of care. Patient is noted to be afebrile, she had O2 saturation of 94% on room air, she did not seem to be in any distress, blood pressure is normal 115/55 basic labs done in our ER showed a hemoglobin of 7 otherwise the rest of the labs were unremarkable. Patient also tested negative for influenza A, influenza B, RSV and COVID-19. The patient is seen today December 10, 2023 in follow-up on the selective care unit. She is currently sitting up at the bedside. Awake and alert in no acute distress. She is maintaining O2 saturations in the 90s on room air. She is afebrile. Hemodynamically stable. Chest x-ray shows vague basilar infiltrates. White count 7.9. Hemoglobin 10.2. Platelets 163. Sodium 137. Potassium 3.2. Bicarb 24. BUN 8. Creatinine 0.40. Legionella screen negative. Calcitonin negative at 0.35. He is currently on cefepime and azithromycin. Patient was seen today on 12/11/2023, seems to be doing well from the pulmonary perspective, responding well to treatment, however she has now mostly symptoms of vague abdominal pain and discomfort, and feels sick to her stomach since she has been in the hospital. This is being addressed by the admitting physician. Still receiving antibiotics in the form of cefepime and Zithromax for her pneumonia, and follow-up chest x-ray will be done tomorrow is pending. Chest x- ray yesterday showed vague basilar infiltrates consistent with pneumonia Objective - Vital Signs Vital signs: Vital Signs Temp 98.3 F 12/11/23 08:33 Pulse 86 12/11/23 14:05 Resp 16 12/11/23 14:05 BP 117/74 12/11/23 11:52 Pulse Ox 96 12/11/23 11:52 FiO2 Intake & Output 12/10/23 12/11/23 12/11/23 18:59 06:59 18:59 Intake Total 480 100 268 Balance 480 100 268 Weight 52 kg 52.5 kg Intake: Intake, IV Titration 100 Amount Cefepime 2 gm In Sodium 100 Chloride 0.9% 100 ml @ 25 mls/hr IVPB Q8HR [facility] Rx# :[id number] Oral 480 268 Other: # Voids 2 1 - Exam General: Revealed a 78-year-old female in no distress, on room air Skin: Skin is warm and dry and no rashes or lesions are noted. Eye: Pupils are equal, round and reactive to light, extra-ocular movements are intact; there is normal conjunctiva bilaterally. Ears, nose, mouth and throat: There are moist mucous membranes and no oral lesions. Neck: The neck is supple, there is no tenderness or JVD. Cardiovascular: There is a regular rate and rhythm. No murmur, rub or gallop is appreciated. Respiratory: Diminished breath sound bilaterally no rhonchi no wheezes Gastrointestinal: Soft, non-distended, non-tender abdomen without masses or organomegaly noted. There is no rebound or guarding present. Bowel sounds are unremarkable. Back: There is no tenderness to palpation in the midline. There is no obvious deformity. Musculoskeletal: Normal ROM, no tenderness, There is no pedal edema. There is no calf tenderness or swelling. No cords were appreciated. Neurological: CN II-XII intact, Cranial nerves III through XII are intact. There are no obvious motor or sensory deficits. Coordination appears grossly intact. Speech is normal. Psychiatric: Cooperative, appropriate mood & affect, normal judgment. - Labs CBC & Chem 7: 12/11/23 08:01 12/11/23 08:01 Labs: Abnormal Lab Results - Last 24 Hours (Table) 12/11/23 12/11/23 Range/Units 08:01 08: RBC 2.92 L (3.80-5.40) m/uL Hgb 9.2 L (11.4-16.0) gm/dL Hct 29.1 L (34.0-46.0) % RDW 16.9 H (11.5-15.5) % Lymphocytes # 0.4 L (1.0-4.8) k/uL Chloride 110 H (98-107) mmol/L Creatinine 0.45 L (0.52-1.04) mg/dL Microbiology - Last 24 Hours (Table) 12/09/23 13:00 Gram Stain - Final Sputum Sputum Culture - Final 12/09/23 07:40 Blood Culture - Preliminary Blood 12/09/23 07:56 Blood Culture - Preliminary Blood Assessment and Plan Assessment: Impression: Acute multifocal pneumonia, most likely gram-negative pneumonia patient is considered immunocompromise, recently finished chemotherapy and has history of non-Hodgkin's lymphoma History of non-Hodgkin's lymphoma, status postchemotherapy, finished treatment a week ago. Anemia secondary to chemotherapy Benign essential hypertension GERD without esophagitis History of vitamin D deficiency History of gout Dyslipidemia History of bowel resection in 2018 Recommendation: Continue antibiotics, patient is receiving cefepime and Zithromax Continue bronchodilators/DuoNeb Repeat chest x-ray in a.m. Will continue to follow Blood cultures and sputum cultures are nondiagnostic Time with Patient: Less than 30
--- NOTE | 2023-12-12 02:57 | P.PN ---
Subjective Progress Note Date: 12/10/23 Patient is a 78-year-old female with a past medical history of non-Hodgkin's lymphoma, retroperitoneal lymphadenopathy who is currently receiving chemotherapy, hypertension, hyponatremia, history of CVA/TIA with noticeable defects and GERD was transferred to ER from [facility]. Patient presents to ER due to generalized weakness, cough and mild shortness of breath. Denies any fever. Patient states that she was having chills at home.. Patient is currently receiving chemotherapy. She was found to be hemoglobin of 6.7 and was started on blood transfusion with 1 unit of PRBC. On admission blood pressure 106/44 pulse 75 respiration 14 and pulse ox 92% on room air. CT thorax was done at the other facility showed multifocal infiltrates and possible pneumonia. She was given a dose of cefepime. Other laboratory data from the [facility] hospital reviewed. WBC was 1.6. Laboratory data showed WBCs of 4.5 hemoglobin 9.3 and platelets 148 12/10/2023 Patient is currently is walking to the bathroom. Awake alert And oriented x 3. Currently on room air. No complaints of chest pain or short ness of breath. Repeat chest x-ray this morning showed vague bibasilar infiltrates noted. Correlate for pneumonia. Patient remains on antibiotics as above azithromycin. Laboratory data showed WBC 7.9 hemoglobin improved to 10.2 and platelets 163 sodium 137 potassium 3.2 chloride 108 bicarbonate 24 BUN 18 creatinine 0.4 albumin 2.6. Urine Legionella antigen negative. Current medications reviewed. Objective - Vital Signs Vital signs: Vital Signs Temp 98.5 F 12/10/23 19:57 Pulse 90 12/10/23 20:33 Resp 17 12/10/23 19:57 BP 116/74 12/10/23 19:57 Pulse Ox 95 12/10/23 19:57 FiO2 Intake & Output 12/10/23 12/10/23 12/11/23 06:59 18:59 06:59 Intake Total 480 Balance 480 Weight 52 kg 52 kg Intake: Oral 480 Other: # Voids 2 - Exam PHYSICAL EXAMINATION: Patient is lying in the bed comfortably, no acute distress, awake alert and oriented.. HEENT: Normocephalic. Neck is supple. Pupils reactive. Nostrils clear. Oral cavity is moist. Neck reveals no JVD, carotid bruits, or thyromegaly. CHEST EXAMINATION: Trachea is central. Symmetrical expansion. Lung larson clear to auscultation and percussion. CARDIAC: Normal S1, S2 with no gallops. No murmurs ABDOMEN: Soft. Bowel sounds normal. No organomegaly. No abdominal bruits. Extremities: reveal no edema. No clubbing or cyanosis Neurologically awake, alert, oriented x3 with well-coordinated movements. No focal deficits noted Skin: No rash or skin lesions. Psychiatric: Coperative. Nonsuicidal Musculoskeletal: No joint swelling or deformity. Normal range of motion. - Labs CBC & Chem 7: 12/11/23 08:01 12/11/23 08:01 Labs: Abnormal Lab Results - Last 24 Hours (Table) 12/10/23 12/10/23 Range/Units 07:59 07:59 RBC 3.16 L (3.80-5.40) m/uL Hgb 10.2 L (11.4-16.0) gm/dL Hct 31.3 L (34.0-46.0) % RDW 17.0 H (11.5-15.5) % Lymphocytes # 0.3 L (1.0-4.8) k/uL Potassium 3.2 L (3.5-5.1) mmol/L Chloride 108 H (98-107) mmol/L Creatinine 0.40 L (0.52-1.04) mg/dL Total Protein 4.9 L (6.3-8.2) g/dL Albumin 2.6 L (3.5-5.0) g/dL Microbiology - Last 24 Hours (Table) 12/09/23 07:40 Blood Culture - Preliminary Blood 12/09/23 07:56 Blood Culture - Preliminary Blood 12/09/23 13:00 Gram Stain - Preliminary Sputum Sputum Culture - Preliminary Assessment and Plan Assessment: Acute multifocal infiltrates and possible gram-negative pneumonia. Patient is on chemotherapy Non-Hodgkin lymphoma status postchemotherapy completed about a week ago Anemia secondary to chemotherapy Hypertension Hyperlipidemia GERD History of gout and vitamin D deficiency History of CVA/TIA with no residual weakness. DVT prophylax with heparin subcu Plan: Patient will be continued on antibiotics cefepime and azithromycin. Follow-up blood cultures and sputum culture. Patient was transfused with 1 unit of PRBC. Hemoglobin improved to 10.2 today. Transfuse if hemoglobin level less than 7. Procalcitonin level 0.35.. Oncology and pulmonary was consulted. Continue to follow closely. Time with Patient: Greater than 30
--- NOTE | 2023-12-12 03:00 | P.PN ---
Subjective Progress Note Date: 12/11/23 Patient is a 78-year-old female with a past medical history of non-Hodgkin's lymphoma, retroperitoneal lymphadenopathy who is currently receiving chemotherapy, hypertension, hyponatremia, history of CVA/TIA with noticeable defects and GERD was transferred to ER from [facility]. Patient presents to ER due to generalized weakness, cough and mild shortness of breath. Denies any fever. Patient states that she was having chills at home.. Patient is currently receiving chemotherapy. She was found to be hemoglobin of 6.7 and was started on blood transfusion with 1 unit of PRBC. On admission blood pressure 106/44 pulse 75 respiration 14 and pulse ox 92% on room air. CT thorax was done at the other facility showed multifocal infiltrates and possible pneumonia. She was given a dose of cefepime. Other laboratory data from the [facility] reviewed. WBC was 1.6. Laboratory data showed WBCs of 4.5 hemoglobin 9.3 and platelets 148 12/10/2023 Patient is currently is walking to the bathroom. Awake alert And oriented x 3. Currently on room air. No complaints of chest pain or short ness of breath. Repeat chest x-ray this morning showed vague bibasilar infiltrates noted. Correlate for pneumonia. Patient remains on antibiotics as above azithromycin. Laboratory data showed WBC 7.9 hemoglobin improved to 10.2 and platelets 163 sodium 137 potassium 3.2 chloride 108 bicarbonate 24 BUN 18 creatinine 0.4 albumin 2.6. Urine Legionella antigen negative. 12/11/2023 Patient is was able to walk to the bathroom. Awake alert and oriented x 3. No complaints of chest pain. Breathing status is much improved. Patient was complaining of nausea and abdominal discomfort this morning. Improved with Zofran and continued on GI prophylaxis. No complaints of cough or sputum production. Afebrile. Remains on antibiotics in the form of cefepime and azithromycin. Laboratory data showed hemoglobin 9.2 today. Platelets 201 WBC 8.6 BUN 17 creatinine 0.45 and potassium proved to 3.8. Pulmonary and oncology is on board. Current medications reviewed. Objective - Vital Signs Vital signs: Vital Signs Temp 100.0 F H 12/11/23 20:16 Pulse 83 12/11/23 20:16 Resp 16 12/11/23 20:16 BP 110/69 12/11/23 20:16 Pulse Ox 92 L 12/11/23 20:16 FiO2 Intake & Output 12/11/23 12/11/23 12/12/23 06:59 18:59 06:59 Intake Total 100 488 Balance 100 488 Weight 52.5 kg Intake: Intake, IV Titration 100 Amount Cefepime 2 gm In Sodium 100 Chloride 0.9% 100 ml @ 25 mls/hr IVPB Q8HR CHRIS Rx# :[id number] Oral 488 Other: # Voids 1 - Exam PHYSICAL EXAMINATION: Patient is lying in the bed comfortably, no acute distress, awake alert and oriented.. HEENT: Normocephalic. Neck is supple. Pupils reactive. Nostrils clear. Oral cavity is moist. Neck reveals no JVD, carotid bruits, or thyromegaly. CHEST EXAMINATION: Trachea is central. Symmetrical expansion. Lung larson clear to auscultation and percussion. CARDIAC: Normal S1, S2 with no gallops. No murmurs ABDOMEN: Soft. Bowel sounds normal. No organomegaly. No abdominal bruits. Extremities: reveal no edema. No clubbing or cyanosis Neurologically awake, alert, oriented x3 with well-coordinated movements. No focal deficits noted Skin: No rash or skin lesions. Psychiatric: Coperative. Nonsuicidal Musculoskeletal: No joint swelling or deformity. Normal range of motion. - Labs CBC & Chem 7: 12/11/23 08:01 12/11/23 08:01 Labs: Abnormal Lab Results - Last 24 Hours (Table) 12/11/23 12/11/23 Range/Units 08:01 08:01 RBC 2.92 L (3.80-5.40) m/uL Hgb 9.2 L (11.4-16.0) gm/dL Hct 29.1 L (34.0-46.0) % RDW 16.9 H (11.5-15.5) % Lymphocytes # 0.4 L (1.0-4.8) k/uL Chloride 110 H (98-107) mmol/L Creatinine 0.45 L (0.52-1.04) mg/dL Microbiology - Last 24 Hours (Table) 12/09/23 07:40 Blood Culture - Preliminary Blood 12/09/23 07:56 Blood Culture - Preliminary Blood 12/09/23 13:00 Gram Stain - Final Sputum Sputum Culture - Final Assessment and Plan Assessment: Acute multifocal infiltrates and possible gram-negative pneumonia. Patient is on chemotherapy Non-Hodgkin lymphoma status postchemotherapy completed about a week ago Anemia secondary to chemotherapy Hypertension Hyperlipidemia GERD History of gout and vitamin D deficiency History of CVA/TIA with no residual weakness. DVT prophylax with heparin subcu Plan: Patient will be continued on antibiotics cefepime and azithromycin. Follow-up blood cultures and sputum culture. Patient was transfused with 1 unit of PRBC. Hemoglobin improved to 10.2 today. Transfuse if hemoglobin level less than 7. Procalcitonin level 0.35.. Continue with symptomatic management for nausea. Encourage oral intake. Oncology and pulmonary was consulted. Continue to follow closely. Time with Patient: Greater than 30
[2023-12-12] MEDS: ASPIRIN 81 MG PO SCH (08:41)
[2023-12-12 12:07] LABS: Anisocytosis Slight; Basophils # (A) 0.1 k/uL (0-0.2); Basophils % (A) 0 %; Eosinophils # (A) 0.1 k/uL (0-0.7); Eosinophils % (A) 1 %; HCT 28.8 % (34.0-46.0); HGB 9.1 gm/dL (11.4-16.0); Hypochromasia Marked; Lymphocytes # (A) 0.8 k/uL (1.0-4.8); Lymphocytes % (A) 8 %; MCH 31.6 pg (25.0-35.0); MCHC 31.7 g/dL (31.0-37.0); MCV 99.8 fL (80.0-100.0); Macrocytosis Slight; Mean Platelet Volume 7.8; Monocytes # (A) 0.6 k/uL (0-1.0); Monocytes % (A) 6 %; Neutrophils % (A) 85 %; Platelet Count 177 k/uL (150-450); RBC 2.89 m/uL (3.80-5.40); RDW 16.8 % (11.5-15.5); WBC 10.6 k/uL (3.8-10.6)
[2023-12-12 12:10] LABS: African American GFR (CKD) >90 (>60 ml/min/1.73 sqM); Anion Gap 2 mmol/L; Blood Urea Nitrogen 7 mg/dL (7-17); Calcium 8.4 mg/dL (8.4-10.2); Carbon Dioxide 25 mmol/L (22-30); Chloride 108 mmol/L (98-107); Glucose 71 mg/dL (74-99); Non-African American GFR(CKD) >90 (>60 ml/min/1.73 sqM); Potassium 3.5 mmol/L (3.5-5.1); Sodium 135 mmol/L (137-145)
--- NOTE | 2023-12-12 12:34 | P.PN ---
Subjective Progress Note Date: 12/12/23 Principal diagnosis: Bilateral multifocal pneumonia This is a 78-year-old female known history of non-Hodgkin's lymphoma, normally sees Dr. Levy, and she is receiving chemotherapy. Presented to the ER in [facility] with chief complaint of increased weakness, productive cough, chills but no fever. Workup in the ER in [place] showed evidence of anemia with a hemoglobin of 7, according to the patient she was anemic about a month ago, and she received 1 unit of packed RBCs by Dr. Levy. Patient also had some abnormal chest x-ray showing multifocal pneumonia. Hence after evaluation in [facility], arrangements were made for the patient to be transferred to [facility] for higher level of care. Patient is noted to be afebrile, she had O2 saturation of 94% on room air, she did not seem to be in any distress, blood pressure is normal 115/55 basic labs done in our ER showed a hemoglobin of 7 otherwise the rest of the labs were unremarkable. Patient also tested negative for influenza A, influenza B, RSV and COVID-19. The patient is seen today December 10, 2023 in follow-up on the selective care unit. She is currently sitting up at the bedside. Awake and alert in no acute distress. She is maintaining O2 saturations in the 90s on room air. She is afebrile. Hemodynamically stable. Chest x-ray shows vague basilar infiltrates. White count 7.9. Hemoglobin 10.2. Platelets 163. Sodium 137. Potassium 3.2. Bicarb 24. BUN 8. Creatinine 0.40. Legionella screen negative. Calcitonin negative at 0.35. He is currently on cefepime and azithromycin. Patient was seen today on 12/11/2023, seems to be doing well from the pulmonary perspective, responding well to treatment, however she has now mostly symptoms of vague abdominal pain and discomfort, and feels sick to her stomach since she has been in the hospital. This is being addressed by the admitting physician. Still receiving antibiotics in the form of cefepime and Zithromax for her pneumonia, and follow-up chest x-ray will be done tomorrow is pending. Chest x- ray yesterday showed vague basilar infiltrates consistent with pneumonia Patient was seen today on 12/12/2023, patient is doing well, remains on antibiotics in the form of cefepime and Zithromax, she has no active pulmonary symptoms, even her GI symptoms are improved, hardly any abdominal pain or nausea, patient is improving. My plan is to have follow-up chest x-ray in a.m., and if not worsening could consider oral antibiotics and discharge the patient home.CBC is relatively unremarkable basic metabolic profile is normal renal profile is normal, blood cultures and sputum cultures have been negative Objective - Vital Signs Vital signs: Vital Signs Temp 98.8 F 12/12/23 08:34 Pulse 77 12/12/23 12:21 Resp 16 12/12/23 12:21 BP 143/80 12/12/23 12:21 Pulse Ox 91 L 12/12/23 12:21 FiO2 Intake & Output 12/11/23 12/12/23 12/12/23 18:59 06:59 18:59 Intake Total 488 30 Balance 488 30 Weight 52.3 kg Intake: Oral 488 30 Other: Voiding Method Toilet # Voids 1 - Exam General: Revealed a 78-year-old female in no distress, on room air Skin: Skin is warm and dry and no rashes or lesions are noted. Eye: Pupils are equal, round and reactive to light, extra-ocular movements are intact; there is normal conjunctiva bilaterally. Ears, nose, mouth and throat: There are moist mucous membranes and no oral lesions. Neck: The neck is supple, there is no tenderness or JVD. Cardiovascular: There is a regular rate and rhythm. No murmur, rub or gallop is appreciated. Respiratory: Diminished breath sound bilaterally no rhonchi no wheezes Gastrointestinal: Soft, non-distended, non-tender abdomen without masses or or ganomegaly noted. There is no rebound or guarding present. Bowel sounds are unremarkable. Back: There is no tenderness to palpation in the midline. There is no obvious deformity. Musculoskeletal: Normal ROM, no tenderness, There is no pedal edema. There is no calf tenderness or swelling. No cords were appreciated. Neurological: CN II-XII intact, Cranial nerves III through XII are intact. The re are no obvious motor or sensory deficits. Coordination appears grossly intact. Speech is normal. Psychiatric: Cooperative, appropriate mood & affect, normal judgment. - Labs CBC & Chem 7: 12/12/23 11:18 08/03/24 11:18 Labs: Abnormal Lab Results - Last 24 Hours (Table) 12/12/23 12/12/23 Range/Units 11:18 11:18 RBC 2.89 L (3.80-5.40) m/uL Hgb 9.1 L (11.4-16.0) gm/dL Hct 28.8 L (34.0-46.0) % RDW 16.8 H (11.5-15.5) % Neutrophils # 9.0 H (1.3-7.7) k/uL Lymphocytes # 0.8 L (1.0-4.8) k/uL Sodium 135 L (137-145) mmol/L Chloride 108 H (98-107) mmol/L Creatinine 0.43 L (0.52-1.04) mg/dL Glucose 71 L (74-99) mg/dL Microbiology - Last 24 Hours (Table) 12/09/23 07:40 Blood Culture - Preliminary Blood 12/09/23 07:56 Blood Culture - Preliminary Blood Assessment and Plan Assessment: Impression: Acute multifocal pneumonia, most likely gram-negative pneumonia patient is con sidered immunocompromise, recently finished chemotherapy and has history of non- Hodgkin's lymphoma History of non-Hodgkin's lymphoma, status postchemotherapy, finished treatment a week ago. Anemia secondary to chemotherapy Benign essential hypertension GERD without esophagitis History of vitamin D deficiency History of gout Dyslipidemia History of bowel resection in 2018 Recommendation: Continue antibiotics, patient is receiving cefepime and Zithromax Continue bronchodilators/DuoNeb Follow-up chest x-ray in the next 24 hours and consider discharge planning if no major change noted on the chest x-ray Will continue to follow Time with Patient: Less than 30
--- NOTE | 2023-12-12 17:24 | P.PN ---
Subjective Progress Note Date: 12/12/23 Interval History: Patient is a 78-year-old female with a past medical history of non-Hodgkin's lymphoma, retroperitoneal lymphadenopathy who is currently receiving chemotherapy, hypertension, hyponatremia, history of CVA/TIA with noticeable defects and GERD was transferred to ER from [facility]. Patient presents to ER due to generalized weakness, cough and mild shortness of breath. Denies any fever. Patient states that she was having chills at home.. Patient is currently receiving chemotherapy. She was found to be hemoglobin of 6.7 and was started on blood transfusion with 1 unit of PRBC. On admission blood pressure 106/44 pulse 75 respiration 14 and pulse ox 92% on room air. CT thorax was done at the other facility showed multifocal infiltrates and possible pneumonia. She was given a dose of cefepime. Other laboratory data from the [facility] reviewed. WBC was 1.6. Laboratory data showed WBCs of 4.5 hemoglobin 9.3 and platelets 148 12/10/2023 Patient is currently is walking to the bathroom. Awake alert And oriented x 3. Currently on room air. No complaints of chest pain or shortness of breath. Repeat chest x-ray this morning showed vague bibasilar infiltrates noted. Correlate for pneumonia. Patient remains on antibiotics as above azithromycin. Laboratory data showed WBC 7.9 hemoglobin improved to 10.2 and platelets 163 sodium 137 potassium 3.2 chloride 108 bicarbonate 24 BUN 18 creatinine 0.4 albumin 2.6. Urine Legionella antigen negative. 12/11/2023 Patient is was able to walk to the bathroom. Awake alert and oriented x 3. No complaints of chest pain. Breathing status is much improved. Patient was complaining of nausea and abdominal discomfort this morning. Improved with Zofran and continued on GI prophylaxis. No complaints of cough or sputum production. Afebrile. Remains on antibiotics in the form of cefepime and azithromycin. Laboratory data showed hemoglobin 9.2 today. Platelets 201 WBC 8.6 BUN 17 creatinine 0.45 and potassium proved to 3.8. Pulmonary and oncology is on board. 12/12/23 Patient was seen and examined today. Patient feeling better today. Shortness of breath and productive cough is improving. Patient complains of generalized weakness. Pulmonary following. Patient remains on cefepime. Assessment and plan: Acute multifocal infiltrates and possible gram-negative pneumonia. Patient is on chemotherapy Non-Hodgkin lymphoma status postchemotherapy completed about a week ago Anemia secondary to chemotherapy Hypertension Hyperlipidemia GERD History of gout and vitamin D deficiency History of CVA/TIA with no residual weakness. Plan: Patient will be continued on antibiotics cefepime and azithromycin has been discontinued. Follow-up blood cultures and sputum culture. Patient was transfused with 1 unit of PRBC. Hemoglobin stable, no sign or symptom of active bleed. Transfuse if hemoglobin level less than 7. Procalcitonin level 0.35.. DVT prophylaxis: SCD Anticipate discharge in 24 hours. PHYSICAL EXAMINATION: GENERAL: The patient is A&O x3, NAD HEENT: EOMI, Sclerae anicteric, Moist Mucous membranes Neck: Supple, Non tender, No JVD CARDIOVASCULAR: S1, S2 present. No murmurs, rubs, or gallops. PULMONARY: Equal breath souds B/L, No wheezing, No crackles. ABDOMEN: Soft, nontender, nondistended, normoactive bowel sounds. No guarding or rebound tenderness. MUSCULOSKELETAL: No edema, No cyanosis. No clubbing. Normal ROM. Intact peripheral pulses. Skin; Warm. No rash. REVIEW OF SYSTEMS: CONSTITUTIONAL: No fever or chills. CARDIOVASCULAR: No chest pain, palpitations or syncope. PULMONARY: No shortness of breath, no cough, sore throat. GASTROINTESTINAL: No nausea, vomiting, diarrhea, abdominal pain. : No Dysuria, urgency, frequency. Extremities: No edema. NEUROLOGICAL: No headaches, no weakness, or numbness Dictation was produced using [employer] dictation software. please excuse any grammatical, word or spelling errors. Objective - Vital Signs Vital signs: Vital Signs Temp 98.8 F 12/12/23 08:34 Pulse 69 12/12/23 16:17 Resp 16 12/12/23 16:17 BP 128/51 12/12/23 16:17 Pulse Ox 97 12/12/23 16:17 FiO2 Intake & Output 12/11/23 12/12/23 12/12/23 18:59 06:59 18:59 Intake Total 488 30 Balance 488 30 Weight 52.3 kg Intake: Oral 488 30 Other: Voiding Method Toilet # Voids 1 1 - Labs CBC & Chem 7: 12/12/23 11:18 12/12/23 11:18 Labs: Abnormal Lab Results - Last 24 Hours (Table) 12/12/23 12/12/23 Range/Units 11:18 11:18 RBC 2.89 L (3.80-5.40) m/uL Hgb 9.1 L (11.4-16.0) gm/dL Hct 28.8 L (34.0-46.0) % RDW 16.8 H (11.5-15.5) % Neutrophils # 9.0 H (1.3-7.7) k/uL Lymphocytes # 0.8 L (1.0-4.8) k/uL Sodium 135 L (137-145) mmol/L Chloride 108 H (98-107) mmol/L Creatinine 0.43 L (0.52-1.04) mg/dL Glucose 71 L (74-99) mg/dL Microbiology - Last 24 Hours (Table) 12/09/23 07:40 Blood Culture - Preliminary Blood 12/09/23 07:56 Blood Culture - Preliminary Blood
[2023-12-13 05:05] VITALS: RESP 18; TEMP 98.5
[2023-12-13] MEDS: ACETAMINOPHEN TAB 325 MG TAB PO PRN (10:44)
--- NOTE | 2023-12-13 11:15 | XR ---
EXAM: XR chest 1V portable CLINICAL INDICATION:Female, 78 years old with history of Pneumonia; [facility] COMPARISON: 12/10/2023 TECHNIQUE: Chest single view. FINDINGS: Background scattered senescent parenchymal changes again seen. Vague basilar infiltrates redemonstrated, with slight interval improvement. There remains some mild b lunting at the left costophrenic angle which could be due to lung opacity or small effusion. No new o r worsening pulmonary opacity or evidence of pneumothorax. Skinfold projects over the right chest. Stable cardiomediastinal silhouette. Partially calcified aorta. Heart size within normal limits. Right chest Ixyziz-l-Laba with catheter tip unchanged over the SVC. Bones and soft tissues appear grossly stable. IMPRESSION: 1. Slightly improved vague bibasilar pulmonary infiltrates. 2. No acute abnormality.
--- NOTE | 2023-12-13 11:36 | P.PN ---
Subjective Progress Note Date: 12/13/23 Principal diagnosis: Bilateral multifocal pneumonia This is a 78-year-old female known history of non-Hodgkin's lymphoma, normally sees Dr. Levy, and she is receiving chemotherapy. Presented to the ER in [facility] with chief complaint of increased weakness, productive cough, chills but no fever. Workup in the ER in [place] showed evidence of anemia with a hemoglobin of 7, according to the patient she was anemic about a month ago, and she received 1 unit of packed RBCs by Dr. Levy. Patient also had some abnormal chest x-ray showing multifocal pneumonia. Hence after evaluation in [facility], arrangements were made for the patient to be transferred to [facility] for higher level of care. Patient is noted to be afebrile, she had O2 saturation of 94% on room air, she did not seem to be in any distress, blood pressure is normal 115/55 basic labs done in our ER showed a hemoglobin of 7 otherwise the rest of the labs were unremarkable. Patient also tested negative for influenza A, influenza B, RSV and COVID-19. The patient is seen today December 10, 2023 in follow-up on the selective care unit. She is currently sitting up at the bedside. Awake and alert in no acute distress. She is maintaining O2 saturations in the 90s on room air. She is afebrile. Hemodynamically stable. Chest x-ray shows vague basilar infiltrates. White count 7.9. Hemoglobin 10.2. Platelets 163. Sodium 137. Potassium 3.2. Bicarb 24. BUN 8. Creatinine 0.40. Legionella screen negative. Calcitonin negative at 0.35. He is currently on cefepime and azithromycin. Patient was seen today on 12/11/2023, seems to be doing well from the pulmonary perspective, responding well to treatment, however she has now mostly symptoms of vague abdominal pain and discomfort, and feels sick to her stomach since she has been in the hospital. This is being addressed by the admitting physician. Still receiving antibiotics in the form of cefepime and Zithromax for her pneumonia, and follow-up chest x-ray will be done tomorrow is pending. Chest x- ray yesterday showed vague basilar infiltrates consistent with pneumonia Patient was seen today on 12/12/2023, patient is doing well, remains on antibiotics in the form of cefepime and Zithromax, she has no active pulmonary symptoms, even her GI symptoms are improved, hardly any abdominal pain or nausea, patient is improving. My plan is to have follow-up chest x-ray in a.m., and if not worsening could consider oral antibiotics and discharge the patient home.CBC is relatively unremarkable basic metabolic profile is normal renal profile is normal, blood cultures and sputum cultures have been negative Patient was seen today on 12/13/2023, patient is feeling much better, breathing a lot easier, as a matter fact she has no active pulmonary symptoms today and on physical examination she sounded fairly clear. Chest x-ray showed significant improvement in her infiltrates. Hence I believe the patient could be transitioned to oral antibiotics and discharged home follow-up on outpatient basis. 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 Eye: Pupils are equal, round and reactive to light, extra-ocular movements are intact; there is normal conjunctiva bilaterally. Ears, nose, mouth and throat: There are moist mucous membranes and no oral lesions. Neck: The neck is supple, there is no tenderness or JVD. Cardiovascular: There is a regular rate and rhythm. No murmur, rub or gallop is appreciated. Respiratory: Diminished breath sound bilaterally no rhonchi no wheezes Gastrointestinal: Soft, non-distended, non-tender abdomen without masses or organomegaly noted. There is no rebound or guarding present. Bowel sounds are unremarkable. Back: There is no tenderness to palpation in the midline. There is no obvious deformity. Musculoskeletal: Normal ROM, no tenderness, There is no pedal edema. There is no calf tenderness or swelling. No cords were appreciated. Neurological: CN II-XII intact, Cranial nerves III through XII are intact. There are no obvious motor or sensory deficits. Coordination appears grossly intact. Speech is normal. Psychiatric: Cooperative, appropriate mood & affect, normal judgment. - Labs CBC & Chem 7: 12/12/23 11:18 12/12/23 11:18 Labs: Abnormal Lab Results - Last 24 Hours (Table) 12/12/23 12/12/23 Range/Units 11:18 11:18 RBC 2.89 L (3.80-5.40) m/uL Hgb 9.1 L (11.4-16.0) gm/dL Hct 28.8 L (34.0-46.0) % RDW 16.8 H (11.5-15.5) % Neutrophils # 9.0 H (1.3-7.7) k/uL Lymphocytes # 0.8 L (1.0-4.8) k/uL Sodium 135 L (137-145) mmol/L Chloride 108 H (98-107) mmol/L Creatinine 0.43 L (0.52-1.04) mg/dL Glucose 71 L (74-99) mg/dL Microbiology - Last 24 Hours (Table) 12/09/23 07:40 Blood Culture - Preliminary Blood 12/09/23 07:56 Blood Culture - Preliminary Blood Assessment and Plan Assessment: Impression: Acute multifocal pneumonia, most likely gram-negative pneumonia patient is considered immunocompromise, recently finished chemotherapy and has history of non-Hodgkin's lymphoma History of non-Hodgkin's lymphoma, status postchemotherapy, finished treatment a week ago. Anemia secondary to chemotherapy Benign essential hypertension GERD without esophagitis History of vitamin D deficiency History of gout Dyslipidemia History of bowel resection in 2018 Recommendation: Transition to oral antibiotics, suggest Ceftin 500 mg twice daily for 5 more days Follow-up chest x-ray was noted today, Clinically the patient is doing great, and I will clear the patient for discharge and follow-up on outpatient basis Time with Patient: Less than 30
[2023-12-13 11:51] VITALS: BP 127/75; PULSE 70
--- NOTE | 2023-12-13 13:55 | P.DS ---
Providers Date of admission: 12/09/23 07:03 Expected date of discharge: 12/13/23 Attending physician: Boris Sahu Consults: 12/09/23 07:01 Consult Physician Routine Consulting Provider: Darius Ramires Consult Reason/Comments: Anemia Do you want consulting provider notified?: Yes Consult Physician Routine Consulting Provider: Elly Osorio Consult Reason/Comments: Pneumonia Do you want consulting provider notified?: Yes Primary care physician: Nany Shah MD Hospital Course: Discharge diagnoses: Acute multifocal infiltrates and possible gram-negative pneumonia. Patient is on chemotherapy Non-Hodgkin lymphoma status postchemotherapy completed about a week ago Anemia secondary to chemotherapy Hypertension Hyperlipidemia GERD History of gout and vitamin D deficiency History of CVA/TIA with no residual weakness. Patient treated with IV antibiotics during hospitalization, blood culture and sputum culture remain negative. Patient received 1 unit of packed RBCs during hospitalization for anemia, no sign of central active bleed. Hemoglobin later on remained stable. Procalcitonin level was 0.35. Pulmonary was consulted. Patient symptoms improved, on room air. Continue Ceftin for 5 days. Hospital course: Patient is a 78-year-old female with a past medical history of non-Hodgkin's lymphoma, retroperitoneal lymphadenopathy who is currently receiving chemotherapy, hypertension, hyponatremia, history of CVA/TIA with noticeable defects and GERD was transferred to ER from [facility]. Patient p resents to ER due to generalized weakness, cough and mild shortness of breath. Denies any fever. Patient states that she was having chills at home.. Patient is currently receiving chemotherapy. She was found to be hemoglobin of 6.7 and was started on blood transfusion with 1 unit of PRBC. On admission blood pressure 106/44 pulse 75 respiration 14 and pulse ox 92% on room air. CT thorax was done at the other facility showed multifocal infiltrates and possible pneumonia. She was given a dose of cefepime. Other laboratory data from the acute hospital reviewed. WBC was 1.6. Laboratory data showed WBCs of 4.5 hemoglobin 9.3 and platelets 148 12/10/2023 Patient is currently is walking to the bathroom. Awake alert And oriented x 3. Currently on room air. No complaints of chest pain or shortness of breath. Repeat chest x-ray this morning showed vague bibasilar infiltrates noted. Correlate for pneumonia. Patient remains on antibiotics as above azithromycin. Laboratory data showed WBC 7.9 hemoglobin improved to 10.2 and platelets 163 sodium 137 potassium 3.2 chloride 108 bicarbonate 24 BUN 18 creatinine 0.4 albumin 2.6. Urine Legionella antigen negative. 12/11/2023 Patient is was able to walk to the bathroom. Awake alert and oriented x 3. No complaints of chest pain. Breathing status is much improved. Patient was complaining of nausea and abdominal discomfort this morning. Improved with Zofran and continued on GI prophylaxis. No complaints of cough or sputum production. Afebrile. Remains on antibiotics in the form of cefepime and azithromycin. Laboratory data showed hemoglobin 9.2 today. Platelets 201 WBC 8.6 BUN 17 creatinine 0.45 and potassium proved to 3.8. Pulmonary and oncology is on board. 12/12/23 Patient was seen and examined today. Patient feeling better today. Shortness of breath and productive cough is improving. Patient complains of generalized weakness. Pulmonary following. Patient remains on cefepime. 12/13/2023 Patient feeling better today, remains on room air. Remained afebrile, no leukocytosis. Continue Ceftin 500 mg twice daily on discharge for 5 more days. Follow-up with PCP in 1 week. Follow-up with oncology as outpatient. PHYSICAL EXAMINATION: GENERAL: The patient is A&O x3, NAD HEENT: EOMI, Sclerae anicteric, Moist Mucous membranes Neck: Supple, Non tender, No JVD PULMONARY: Equal breath souds B/L, No wheezing, No crackles. CARDIOVASCULAR: S1, S2 present. No murmurs, rubs, or gallops. ABDOMEN: Soft, nontender, nondistended, normoactive bowel sounds. No guarding or rebound tenderness. MUSCULOSKELETAL: No edema, No cyanosis. No clubbing. Normal ROM. Intact peripheral pulses. EXTREMITIES: No cyanosis, clubbing, or pedal edema. NEUROLOGICAL: CN 2-12 grossly intact. No FND SKIN: No rashes. Dictation was produced using [employer] dictation software. please excuse any grammatical, word or spelling errors. Patient Condition at Discharge: Fair Plan - Discharge Summary Discharge Rx Participant: Yes New Discharge Prescriptions: New cefUROXime axetiL [Ceftin] 500 mg PO BID 5 Days #10 tab guaiFENesin SYRUP 100MG/5ML [Robitussin] 200 mg PO Q6HR PRN #200 ml PRN Reason: Cough Continue Simvastatin [Zocor] 40 mg PO HS lisinopriL [Zestril] 10 mg PO HS Aspirin [Adult Low Dose Aspirin EC] 81 mg PO DAILY L.acidoph,Paracasei, B.lactis [Probiotic] 1 cap PO DAILY Cholecalciferol [Vitamin D3 (25 Mcg = 1000 Iu)] 25 mcg PO DAILY ALPRAZolam [Xanax] 0.25 mg PO DAILY PRN PRN Reason: Anxiety Discharge Medication List Aspirin [Adult Low Dose Aspirin EC] 81 mg PO DAILY 04/22/17 [History] Simvastatin [Zocor] 40 mg PO HS 04/22/17 [History] lisinopriL [Zestril] 10 mg PO HS 04/22/17 [History] L.acidoph,Paracasei, B.lactis [Probiotic] 1 cap PO DAILY 10/25/18 [History] ALPRAZolam [Xanax] 0.25 mg PO DAILY PRN 12/09/23 [History] Cholecalciferol [Vitamin D3 (25 Mcg = 1000 Iu)] 25 mcg PO DAILY 12/09/23 [History] cefUROXime axetiL [Ceftin] 500 mg PO BID 5 Days #10 tab 12/13/23 [Rx] guaiFENesin SYRUP 100MG/5ML [Robitussin] 200 mg PO Q6HR PRN #200 ml 12/13/23 [Rx] Follow up Appointment(s)/Referral(s): Nany Shah MD [Primary Care Provider] - 1-2 days Ward Levy MD [STAFF PHYSICIAN] - 12/30/23 9:00 am (PET scan is 12/15 at 11 AM in [place])
== END 2023-12-13 16:30 | disposition home or self-care (01) | DRG 178 ==
LOC: EC 06:16 → 3SCARD 07:03
PROVIDERS: ADMIT Internal Medicine; ATTEND Internal Medicine
DX: J15.69 Pneumonia due to other Gram-negative bacteria (principal); C82.90 Follicular lymphoma, unspecified, unspecified site; D84.9 Immunodeficiency, unspecified; E87.1 Hypo-osmolality and hyponatremia; D64.81 Anemia due to antineoplastic chemotherapy; T45.1X5A Adverse effect of antineoplastic and immunosuppressive drugs, initial encounter; X58.XXXA Exposure to other specified factors, initial encounter; E78.5 Hyperlipidemia, unspecified; I10 Essential (primary) hypertension; K21.9 Gastro-esophageal reflux disease without esophagitis; K59.00 Constipation, unspecified; Z79.82 Long term (current) use of aspirin; Z85.71 Personal history of Hodgkin lymphoma; Z86.73 Personal history of transient ischemic attack (TIA), and cerebral infarction without residual deficits; Z90.49 Acquired absence of other specified parts of digestive tract; Z88.0 Allergy status to penicillin; Z88.1 Allergy status to other antibiotic agents; Z88.5 Allergy status to narcotic agent; Z91.040 Latex allergy status
CPT/HCPCS: 71045; 80048; 80053; 84145; 85025; 85027; 87040; 87070; 87205; 87449; 94640; 94760; 96365; 96366; 99285

== ENCOUNTER 2024-08-04 08:16 | Day surgery (SDC) | payer MEDICARE ==
--- NOTE | 2024-08-04 08:11 | P.GSHP ---
History of Present Illness H&P Date: 08/04/24 CHIEF COMPLAINT: GERD and colon screen HISTORY OF PRESENT ILLNESS: The patient is a 79-year-old female who presents with gastroesophageal reflux disease and need for colon screen. Upper and lower endoscopy were offered for further evaluation and management. PAST MEDICAL HISTORY: Please see list. PAST SURGICAL HISTORY: Please see list. MEDICATIONS: Please see list. ALLERGIES: Please see list. SOCIAL HISTORY: No illicit drug use FAMILY HISTORY: No reports of Crohn disease or ulcerative colitis. REVIEW OF ORGAN SYSTEMS: CONSTITUTIONAL: No reports of fevers or chills. GI: Denies any blood in stools or constipation. PHYSICAL EXAM: VITAL SIGNS: Stable GENERAL: Well-developed pleasant in no acute distress. HEENT: No scleral icterus. Extraocular movements grossly intact. Moist buccal mucosa. NECK: Supple without lymphadenopathy. CHEST: Unlabored respirations. Equal bilateral excursions. CARDIOVASCULAR: Regular rate and rhythm. Distal 2+ pulses. ABDOMEN: Soft, nondistended. MUSCULOSKELETAL: No clubbing, cyanosis, or edema. ASSESSMENT: 1. Gastroesophageal reflux disease 2. Colon screen. PLAN: 1. Recommend proceeding with an upper and lower endoscopy Past Medical History Past Medical History: Cancer, CVA/TIA, GERD/Reflux, Hyperlipidemia, Hypertension, Osteoarthritis (OA) Additional Past Medical History / Comment(s): TIA 2012- no residual effects, diverticulitis, hx colon polyps, rectal bleeding, hx constipation, developed some type of blood clot in abdomen after bowel resection in 2018, B cell non hodgkins lymphoma - last chemo 11/2023, red spot on rt thigh since rt knee replaced History of Any Multi-Drug Resistant Organisms: None Reported Past Surgical History: Bowel Resection, Breast Surgery, Joint Replacement, Orthopedic Surgery Additional Past Surgical History / Comment(s): left foot bunionectomy, left breast lumpectomy-benign, colonoscopy, bowel resection x 2. rt knee replaced. Past Anesthesia/Blood Transfusion Reactions: Motion Sickness, Postoperative Nausea & Vomiting (PONV) Additional Past Anesthesia/Blood Transfusion Reaction / Comment(s): slow to wake up. Smoking Status: Never smoker - Past Family History Mother Family Medical History: Deep Vein Thrombosis (DVT) Additional Family Medical History / Comment(s): age 44 Father Family Medical History: Renal Disease Additional Family Medical History / Comment(s): age 59 Medications and Allergies Home Medications Medication Instructions Recorded Confirmed Type Aspirin [Adult Low Dose Aspirin EC] 81 mg PO DAILY 04/22/17 08/03/24 History Simvastatin [Zocor] 40 mg PO HS 04/22/17 08/03/24 History lisinopriL [Zestril] 10 mg PO HS 04/22/17 08/03/24 History L.acidoph,Paracasei, B.lactis 1 cap PO DAILY 10/25/18 08/03/24 History [Probiotic] ALPRAZolam [Xanax] 0.25 mg PO DAILY PRN 12/09/23 08/03/24 History Cholecalciferol [Vitamin D3 (25 25 mcg PO DAILY 12/09/23 08/03/24 History Mcg = 1000 Iu)] Allergies Allergy/AdvReac Type Severity Reaction Status Date / Time amoxicillin Allergy Rash/Hives Verified 08/03/24 10:56 codeine Allergy Hallucinati Verified 08/03/24 10:56 ons hydrocodone [From [place]] Allergy Nausea Verified 08/03/24 10:56 latex Allergy Itching Verified 08/03/24 10:56 Penicillins Allergy Rash/Hives Verified 08/03/24 10:56
[~2024-08-04 08:16] MED LIST changes: -HYDROmorphone 0.5 MG/0.5 ML SYRINGE IVP PRN; +ONDANSETRON 4 MG/2 ML VIAL IVP PRN; -Pre Op ABX Message 1 EACH MISC MISCELLANE ONE
[2024-08-04] MEDS: LACTATED RINGERS 1,000 ML IV ONE ×2 (08:27→09:09)
[2024-08-04 08:46] VITALS: RESP 16; TEMP 97.1
[2024-08-04] MEDS: LACTATED RINGERS 1,000 ML IV SCH (08:57)
[2024-08-04] MEDS ORDERED: LIDOCAINE 1% INJ 10MG/ML (20 ML MDV) ONE (09:10)
[2024-08-04] MEDS ORDERED: PROPOFOL 10 MG/ML 20 ML VIAL IV ONE (09:10)
--- NOTE | 2024-08-04 09:36 | P.PCN ---
Date of Procedure: 08/04/24 Description of Procedure: PREOPERATIVE DIAGNOSIS: Gastroesophageal reflux disease. Diaphragmatic hiatal hernia POSTOPERATIVE DIAGNOSIS: Gastroesophageal reflux disease. Gastritis. Diaphragmatic hiatal hernia OPERATION: Esophagogastroduodenoscopy with cold forceps biopsies along esophagus, antrum and duodenum SURGEON: Emma Godwin MD ANESTHESIA: MAC. INDICATIONS: The patient is a 79-year-old female who presents with hiatal hernia. Benefits and risks of the procedure were described. Informed consent was obtained. DESCRIPTION: The patient was brought into the endoscopy suite and laid in the left lateral decubitus position. An Olympus gastroscope was passed along the posterior oropharynx down to the distal esophagus where the squamocolumnar junction was encountered at 34 cm from the incisors. The stomach was entered and no bile reflux was found. Additional findings are listed below. Biopsies with cold forceps were obtained of the antrum. The first through third portion of the duodenum was examined. Retroflexion of the scope confirmed Hill grade 3 lower esophageal valve. The squamocolumnar junction demonstrated LA grade A erosive esophagitis. The stomach was desufflated. The patient tolerated the procedure well. FINDINGS: Squamocolumnar junction 34 cm from the incisors. Diaphragmatic hiatus at 38 cm. Hiatal hernia, 4 cm Hill grade 3 lower esophageal valve. LA grade A erosive esophagitis. Biopsies obtained Biopsies obtained of the duodenum. Chronic gastritis with biopsies obtained. RECOMMENDATIONS: Upper endoscopy as needed.
--- NOTE | 2024-08-04 09:52 | P.PCN ---
Date of Procedure: 08/04/24 Description of Procedure: PREOPERATIVE DIAGNOSIS: History of colon cancer Non-Hodgkin lymphoma History of right colectomy History of sigmoid colectomy POSTOPERATIVE DIAGNOSIS: Diverticulosis, scattered Constipation OPERATION: Colonoscopy to the ileocolic anastomosis SURGEON: Emma Godwin MD. ANESTHESIA: MAC. INDICATIONS: The patient is a 79-year-old female who presents for surveillance following colon cancer. Last colonoscopy 2 to 3 years ago benefits and risks were described and informed consent was obtained. DESCRIPTION OF PROCEDURE: The patient had undergone Suprep. The patient had been brought into the operating room and laid in the left lateral decubitus position. After adequate intravenous sedation, the rectum was examined with 2% lidocaine jelly. Anal stenosis was identified. No external hemorrhoids were encountered. The rectal tone was within normal limits. No lesions were palpated in the rectal vault. An Olympus colonoscope was advanced to the ileocolic anastomosis. The prep was poor to fair. Scattered diverticulosis was encountered. No colonic polyps were found. No evidence of focal colitis was found. Retroflexion of the scope demonstrated grade 1 internal hemorrhoids without active bleeding or inflammation. The colon was desufflated. The patient had tolerated the procedure well. Withdrawal time was over 6 minutes. FINDINGS: Aronchick preparation quality scale 3+ (1-5) Internal hemorrhoids, grade 1 No external prolapsed hemorrhoids. Anal stenosis Ileocolic anastomosis No large polyps over 1 cm identified. No bleeding arteriovenous malformations. No focal colitis. RECOMMENDATIONS: Lower endoscopy in 1 year, 2025 due to colon cancer history Plan - Discharge Summary Discharge Rx Participant: No New Discharge Prescriptions: Continue Simvastatin [Zocor] 40 mg PO HS lisinopriL [Zestril] 10 mg PO HS Aspirin [Adult Low Dose Aspirin EC] 81 mg PO DAILY L.acidoph,Paracasei, B.lactis [Probiotic] 1 cap PO DAILY Cholecalciferol [Vitamin D3 (25 Mcg = 1000 Iu)] 25 mcg PO DAILY ALPRAZolam [Xanax] 0.25 mg PO DAILY PRN PRN Reason: Anxiety Discharge Medication List Aspirin [Adult Low Dose Aspirin EC] 81 mg PO DAILY 04/22/17 [History] Simvastatin [Zocor] 40 mg PO HS 04/22/17 [History] lisinopriL [Zestril] 10 mg PO HS 04/22/17 [History] L.acidoph,Paracasei, B.lactis [Probiotic] 1 cap PO DAILY 10/25/18 [History] ALPRAZolam [Xanax] 0.25 mg PO DAILY PRN 12/09/23 [History] Cholecalciferol [Vitamin D3 (25 Mcg = 1000 Iu)] 25 mcg PO DAILY 12/09/23 [History] Follow up Appointment(s)/Referral(s): Emma Godwin MD [STAFF PHYSICIAN] - 08/23/24 2:30 pm Patient Instructions/Handouts: Diverticulosis (GEN), Hiatal Hernia (DC) Activity/Diet/Wound Care/Special Instructions: Repeat upper and lower endoscopy 1 year, 2025 Discharge Disposition: HOME SELF-CARE
[2024-08-04 10:11] VITALS: BP 124/78; PULSE 55
== END 2024-08-04 10:39 | disposition home or self-care (01) ==
LOC: ORWHC2ENDO 08:16
PROVIDERS: ATTEND Surgery Plastic and Reconstructive Surgery
DX: Z12.11 Encounter for screening for malignant neoplasm of colon (principal); K57.30 Diverticulosis of large intestine without perforation or abscess without bleeding; K62.4 Stenosis of anus and rectum; K64.0 First degree hemorrhoids; K29.50 Unspecified chronic gastritis without bleeding; K21.00 Gastro-esophageal reflux disease with esophagitis, without bleeding; K44.9 Diaphragmatic hernia without obstruction or gangrene; I10 Essential (primary) hypertension; E78.5 Hyperlipidemia, unspecified; M19.90 Unspecified osteoarthritis, unspecified site; Z91.89 Other specified personal risk factors, not elsewhere classified; Z79.82 Long term (current) use of aspirin; Z79.899 Other long term (current) drug therapy; Z85.038 Personal history of other malignant neoplasm of large intestine; Z90.49 Acquired absence of other specified parts of digestive tract; Z86.73 Personal history of transient ischemic attack (TIA), and cerebral infarction without residual deficits; Z86.718 Personal history of other venous thrombosis and embolism; Z85.72 Personal history of non-Hodgkin lymphomas; Z88.0 Allergy status to penicillin; Z88.5 Allergy status to narcotic agent; Z91.040 Latex allergy status
CPT/HCPCS: 88305; 43239; G0105; J2003; J2704; 45378

== ENCOUNTER 2024-10-14 08:32 | Day surgery (SDC) | payer MEDICARE ==
[2024-10-12 12:01] VITALS: BMI 23.0
--- NOTE | 2024-10-14 07:55 | P.GSHP ---
History of Present Illness H&P Date: 10/14/24 CHIEF COMPLAINT: Lymphoma HISTORY OF PRESENT ILLNESS: The patient is a 51-year-old female diagnosed with lymphoma. She had a Mediport placement. She presents for Port-A-Cath removal upon completion of her chemotherapy. PAST MEDICAL HISTORY: Breast cancer. PAST SURGICAL HISTORY: Breast biopsy. CURRENT MEDICATIONS: See list. ALLERGIES: See list. SOCIAL HISTORY: No active tobacco or alcohol use. FAMILY HISTORY: Noncontributory. REVIEW OF ORGAN SYSTEMS: CONSTITUTIONAL: Denies any fever or chills. Denies recent weight loss or weight gain. HEENT: Denies any trouble with vision, hearing or nosebleeds. No difficulty swallowing. BREASTS: Please see above. PHYSICAL EXAMINATION: Vital signs: Stable GENERAL: Well developed female and in no acute distress. Pleasant. HEENT: No sclera icterus. Extraocular movements grossly intact. Moist buccal mucosa. Head is atraumatic, normocephalic. Hears conversational speech. No nasal drainage. NECK: Supple without lymphadenopathy. No JV distention. CHEST: Non-labored respirations and equal bilateral excursions. CARDIOVASCULAR: Regular rate and rhythm. Palpable 2+ radial pulses. ABDOMEN: Nontender. MUSCULOSKELETAL: No clubbing, cyanosis or edema. NEUROLOGIC: No focal or lateralizing signs. PSYCH: Appropriate affect. Alert and oriented to person, place and time. ASSESSMENT: 1. Lymphoma 2. Need for chemotherapeutic access. PLAN: 1. Agree with Port-A-Cath removal per patient's request. Past Medical History Past Medical History: Cancer, CVA/TIA, GERD/Reflux, Hyperlipidemia, Hypertension, Osteoarthritis (OA) Additional Past Medical History / Comment(s): TIA 2012- no residual effects, diverticulitis, hx colon polyps, rectal bleeding, hx constipation, developed some type of blood clot in abdomen after bowel resection in 2018, B cell non hodgkins lymphoma - last chemo 11/2023, red spot on rt thigh since rt knee replaced. "'m getting both legs tested soon to check for proper circulation." "Twisted bowel." History of Any Multi-Drug Resistant Organisms: None Reported Past Surgical History: Bowel Resection, Breast Surgery, Joint Replacement, Orthopedic Surgery Additional Past Surgical History / Comment(s): left foot bunionectomy, left breast lumpectomy-benign, colonoscopy, bowel resection x 2. rt knee replaced. Past Anesthesia/Blood Transfusion Reactions: Motion Sickness, Postoperative Nausea & Vomiting (PONV) Additional Past Anesthesia/Blood Transfusion Reaction / Comment(s): slow to wake up. Smoking Status: Never smoker - Past Family History Mother Family Medical History: Deep Vein Thrombosis (DVT) Additional Family Medical History / Comment(s): age 44 Father Family Medical History: Renal Disease Additional Family Medical History / Comment(s): age 59 Medications and Allergies Home Medications Medication Instructions Recorded Confirmed Type Aspirin [Adult Low Dose Aspirin EC] 81 mg PO QAM 04/22/17 10/12/24 History Simvastatin [Zocor] 40 mg PO HS 04/22/17 10/12/24 History lisinopriL [Zestril] 10 mg PO 04/22/17 10/12/24 History L.acidoph,Paracasei, B.lactis 1 cap PO QAM 10/25/18 10/12/24 History [Probiotic] Cholecalciferol [Vitamin D3 (25 25 mcg PO DAILY 12/09/23 10/12/24 History Mcg = 1000 Iu)] Metamucil(Unknown Dose) 1 dose PO QAM 10/12/24 10/12/24 History Allergies Allergy/AdvReac Type Severity Reaction Status Date / Time amoxicillin Allergy Rash/Hives Verified 10/12/24 11:45 codeine Allergy Hallucinati Verified 10/12/24 11:45 ons hydrocodone [From [place]] Allergy Nausea Verified 10/12/24 11:45 latex Allergy Itching Verified 10/12/24 11:45 Penicillins Allergy Rash/Hives Verified 10/12/24 11:45
[2024-10-14] MEDS ORDERED: MIDAZOLAM 2 MG/2 ML VIAL IV PRN (08:59)
[2024-10-14] MEDS ORDERED: fentaNYL (PF) 50 MCG/ML 2 ML AMP IV PRN (08:59)
[2024-10-14 09:09] VITALS: TEMP 97.8
[2024-10-14] MEDS: IV FLUID CONTINUATION 1,000 ML IV ONE (09:10)
[2024-10-14] MEDS: LACTATED RINGERS 1,000 ML IV SCH (09:10)
[2024-10-14] MEDS: ACETAMINOPHEN TAB 500 MG TAB PO PRN (09:10)
[2024-10-14] MEDS: DEXAMETHASONE SOD PHOSPHATE 4 MG/ML 1 ML VIAL IVP STA (09:11)
[2024-10-14] MEDS: ONDANSETRON 4 MG/2 ML VIAL IVP PRN (09:11)
[2024-10-14] MEDS: LIDOCAINE 1%-EPI 1:100,000 20 ML VIAL SQ ONE ×2 (10:30→11:03)
[2024-10-14] MEDS ORDERED: PROPOFOL 10 MG/ML 20 ML VIAL IV ONE (10:32)
[2024-10-14] MEDS ORDERED: KETAMINE HCL IN 0.9 % NACL 50 MG/5 ML SYRINGE ONE (10:32)
[2024-10-14] MEDS: ceFAZolin 2 GM in DEXTROSE 5% IN WATER 50 ML IVPB PRN (10:37)
[2024-10-14 11:41] VITALS: BP 126/62; PULSE 74; RESP 16
--- NOTE | 2024-10-14 20:00 | P.OP ---
Date of Procedure: 10/14/24 Description of Procedure: SURGEON: CAL CLEMENTS MD WORKFOR[employer] DEVELOPMENT VICE PRESIDENT: None. PREOPERATIVE DIAGNOSIS: 1. B-cell non-Hodgkin's lymphoma 2. Chemotherapeutic venous access. 3. Hypertensive heart disease 4. Hyperlipidemia 5. History of transient ischemic attack 6. Postop nausea and vomiting POSTOPERATIVE DIAGNOSIS: 1. B-cell non-Hodgkin's lymphoma 2. Chemotherapeutic venous access. 3. Hypertensive heart disease 4. Hyperlipidemia 5. History of transient ischemic attack 6. Postop nausea and vomiting OPERATION: Removal of right internal jugular vein Port-A-Cath. ANESTHESIA: MAC with 20 mL local anesthetic ESTIMATED BLOOD LOSS: 1 mL SPECIMENS REMOVED: Port-A-Cath COMPLICATIONS: None. FINDINGS: 1. Unremarkable Port-a-cath extraction. INDICATIONS: The patient is a 79-year-old female who completed chemotherapy for lymphoma. She now has elected for removal. Benefits and risks were described. Informed consent was obtained. DESCRIPTION OF PROCEDURE: Patient was brought to the operating room, laid in supine position. After IV sedation the chest wall on the right side was prepped and draped in standard sterile fashion. Prior to incision, a timeout protocol was confirmed with surgical team regarding the patient's name including procedures to be performed. As this was a clean case, no further antibiotics were required. Additionally, she had bilateral SCDs. Attention was brought to the area of the port site, whereby all local anesthetic was injected into the skin for a field block. A #15 blade was used to incise along the previous cicatrix. Electro- Bovie cautery was used to control for hemostasis. Adhesions were lysed around the Mediport. The port was extracted without sequelae. Pressure for 5 minutes was placed along the right internal jugular vein. Hemostasis was checked along the pocket of the Port-A-Cath site. The wound was closed in layers using 3-0 Vicryl for the deep subcutaneous tissues followed by 4-0 Monocryl in a running subcuticular fashion. Dermabond was applied to the skin. Once dried a 4 x 4 Optifoam was applied. At the end of the procedure needle, sponge and instrument counts were verified correct by the surgical garment assembly supervisor. The patient had tolerated the procedure well and was taken to postanesthesia care in stable condition.
== END 2024-10-14 12:22 | disposition home or self-care (01) ==
LOC: OR 08:32
PROVIDERS: ATTEND Surgery Plastic and Reconstructive Surgery
DX: Z45.2 Encounter for adjustment and management of vascular access device (principal); I11.9 Hypertensive heart disease without heart failure; E78.5 Hyperlipidemia, unspecified; K21.9 Gastro-esophageal reflux disease without esophagitis; M19.90 Unspecified osteoarthritis, unspecified site; Z91.89 Other specified personal risk factors, not elsewhere classified; Z79.82 Long term (current) use of aspirin; Z79.899 Other long term (current) drug therapy; Z85.72 Personal history of non-Hodgkin lymphomas; Z92.21 Personal history of antineoplastic chemotherapy; Z85.3 Personal history of malignant neoplasm of breast; Z86.73 Personal history of transient ischemic attack (TIA), and cerebral infarction without residual deficits; Z86.718 Personal history of other venous thrombosis and embolism; Z88.0 Allergy status to penicillin; Z88.5 Allergy status to narcotic agent; Z91.040 Latex allergy status
CPT/HCPCS: 36590; J1100; J0690; J2405; J2704